=== PATIENT | female | born 1965 | race Hispanic/Latino ===

== ENCOUNTER 2017-06-24 06:31 | Inpatient (IN) | payer OTHER ==
[2017-06-24 06:56] VITALS: BMI 45.3
[2017-06-24] MEDS ORDERED: Propofol 10 mg/ml Inj (20 ML) ONE ×2 (08:04→13:03)
[2017-06-24] MEDS ORDERED: Succinylcholine 200 mg/10 ml Inj IV ONE ×2 (08:05→13:04)
[2017-06-24] MEDS ORDERED: Rocuronium 10 mg/ml (5 ml) ONE ×3 (08:05→14:56)
[2017-06-24] MEDS ORDERED: Lidocaine 4% (Laryng-O-Jet) Kit MM ONE ×2 (08:05→13:04)
[2017-06-24] MEDS ORDERED: Midazolam 2 MG/2 ML VIAL ONE ×2 (08:16→13:03)
[2017-06-24] MEDS ORDERED: ePHEDrine 50 mg/ml Inj ONE ×2 (08:17→13:11)
[2017-06-24] MEDS ORDERED: Lactated Ringer's 1,000 ML IV ONE ×5 (10:04→21:45)
[2017-06-24] MEDS ORDERED: Morphine 1 mg/ml preservative-free Inj(Duramorph) ONE ×2 (12:41→13:11)
[2017-06-24] MEDS ORDERED: EPINEPHrine 1 mg/ml (1:1000) Inj ONE (12:42)
[2017-06-24] MEDS ORDERED: Absorbable Gelatin Sponge Size 100 ONE (12:42)
[2017-06-24] MEDS ORDERED: Bacitracin Ointment 30 GM TUBE ONE (12:42)
[2017-06-24] MEDS ORDERED: Bupivacaine 0.5% Inj(30mL) ONE (12:42)
[2017-06-24] MEDS ORDERED: Thrombin Topical 5,000 Int Units Spray Kit ONE (12:42)
[2017-06-24] MEDS ORDERED: MethylPREDNISolone Depo 40 mg/ml Inj ONE (12:43)
[2017-06-24] MEDS ORDERED: Lidocaine 1% 5ml Abboject IV ONE (13:04)
[2017-06-24] MEDS ORDERED: Sevoflurane - Inhalation Anesthetic Liq (250 ml) ONE (13:04)
[2017-06-24] MEDS ORDERED: Sterile Water 10 ML IV ONE (13:11)
[2017-06-24] MEDS ORDERED: Neostigmine 1:1000 (1 mg/ml) Inj ONE (15:51)
[2017-06-24] MEDS ORDERED: DiphenhydrAMINE 50 mg/ml Inj IVP PRN (17:52)
[2017-06-24] MEDS ORDERED: Oxycodone/Acetaminophen 5/325 mg Tab PO PRN ×3 (17:52→19:18)
[2017-06-24] MEDS ORDERED: ceFAZolin IV 1 gm in Dextrose 1 GM/50 ML BAG IVPB ONE ×2 (19:00→19:45)
--- NOTE | 2017-06-24 19:14 | PCM.SURG1 ---
Surgeon's Initial Post Op Note - Surgeon's Notes Surgeon: María Esteban MD Core Measures Abstractor: Ran Arthur PA-C; Dayanara Wong Type of Anesthesia: General Endo, Spinal Pre-Operative Diagnosis: Left hip Osteoarthritis Operative Findings: see op report Post-Operative Diagnosis: same as pre-op dx Operation Performed: L THR Specimen/Specimens Removed: left hip femoral head and soft tissue Estimated Blood Loss: EBL {In ML}: 200 Date of Surgery/Procedure: 06/24/17 Time of Surgery/Procedure: 15:30
[2017-06-24] MEDS: Lactated Ringer's 500 ML IV SCH (21:00)
[2017-06-24 21:18] LABS: HEMOGLOBIN 9.9 g/dL (12.0-16.0); MEAN CELL VOLUME 88.6 fl (81.0-99.0); MEAN CORPUSCULAR HEMOGLOBIN 29.5 pg (27.0-31.0); MEAN CORPUSCULAR HGB CONC 33.3 g/dL (33.0-37.0); RBC 3.34 Mil/uL (3.80-5.20); WHITE BLOOD COUNT 9.4 K/uL (4.8-10.8)
--- NOTE | 2017-06-24 22:49 | OP ---
PROCEDURE DATE: 06/24/2017 ATTENDING SURGEON: María Esteban MD DAIRY CHEMIST: Ran Arthur PA-C PREOPERATIVE DIAGNOSIS: Left hip osteoarthritis. POSTOPERATIVE DIAGNOSIS: Left hip osteoarthritis. PROCEDURE: Total hip replacement. IMPLANTS SIZE: Sidney 50 mm Tritanium cup, Accolade II size 4 stem with high-offset, and 36 mm ceramic head with -5 neck length. ANESTHESIA TYPE: Spinal and general. ESTIMATED BLOOD LOSS: 300 mL. COMPLICATIONS: None. HISTORY: Patient with long standing history of left hip pain refractory of conservative management. X-ray had shown significant loss of joint space. After the failure of extensive conservative management, I had offered the patient the treatment option of total hip replacement. I reviewed the risk and benefits of the surgery with the patient in detail. The risks include, but not limited to bleeding, infection, nerve vessel damage, continuous pain, blood loss, instability, dislocation, iatrogenic fracture, blood clots, need for further surgery, and even . The patient fully understood the risks and benefits and opted to proceed. Patient underwent necessary preoperative medical workup and once medically cleared, was scheduled for the procedure. DESCRIPTION OF PROCEDURE: Under spinal and general anesthesia, on the day of the surgery, the patient was admitted to preoperative holding area. A laterality sheet was completed, confirming correct operative site. An informed consent was signed from the patient and the correct operative hip was marked. Patient was brought into the operating room table. She underwent general anesthesia. Afterwards, the patient was placed on the operating room table in lateral decubitus position. All the bony prominences were well padded and an axillary roll was also placed. The hip was draped and prepped in the standard sterile manner. Timeout was completed, confirming correct operative site. We proceeded with Navigation assisted total hip replacement. Two pins were placed in the iliac crest to attach the antenna. Additional checkpoint was placed on the greater trochanter and on top of the acetabular roof. We utilized a standard postero-lateral approach. Using a #10 blade, a skin incision was made. The soft tissue dissection was taken down until the IT band fascia was identified incised along it's fibers. The short external rotators were exposed and excised with the capsule. It was tagged wit heavy sutures preserved for a later repair. Afterwards, the hip was dislocated and proposed neck cut was made. The Acetabulum was exposed using standard retractors. The remnant of torn labrum was excised along with pulvinar. The acetabulum was reamed using motorized reamers to the size that provide adequate depth and coverage. Next, 50 mm cup was securely fixed in to the acetabular socket in appropriate version and inclination. A polyethylene liner was secured in to the acetubular cup. The femoral canal was exposed using standard retractors. Using the box chisel, lateral femoral neck was removed. Femoral canal was broached up to size 4 broach, which provide a secure fit and adequate fill of femoral canal. A high-offset trial neck was secured onto the broach. Different trial heads with variable neck lengths were secured onto the trial neck. The hip was reduced and taken through extensive range of motion to test stability, soft tissue tensioning and leg length. It was noted the 36 mm head with -5 neck length provide adequate stability, soft tissue tensioning and length. Next, size 4 stem with high-offset was securely fixed into the femoral canal. Then, 36 mm ceramic head with -5 neck length was secured onto the neck of femoral stem. Hip was reduced and taken through final range of motion to assess for stability, soft tissue tensioning and leg length which was found to be satisfactory. Finally, the wound was copiously irrigated using pulse lavage solution. All loose bodies were removed. The short external rotators were repaired to greater trochanter using drill holes and heavy sutures. IT band fascia was tightly closed using heavy sutures and rest the wound was closed standard manner. Sterile dressing was applied. Patient was transferred to stretcher. Post-op instructions included posterior hip precautions. During this procedure, I was assisted by 22 malini Arthur PA-C, who assisted in positioning the patient on the operating room table as well as transferring the patient from the operating room table to the recovery room stretcher. In addition, Ran Arthur PA-C assisted me during the actual operative procedure by positioning, protecting critical neurovascular structures, exposure of the joint, and proper positioning of the implants. The presence of Ran Arthur PA-C as my operative assistant inventory manager was medically necessary to ensure the utmost safety of the patient in the pre, intra-, and post-operative periods. Due to the patient's morbid obesity, this procedure was more difficult than a standard knee arthroscopy. This required extra time during prepping and draping, as well as an extended operative time. The length of the case was prolonged due to these factors by 100%. Due to the patient's previous procedure(s) performed in this area, this procedure was more difficult than a standard knee arthroscopy. This required extra time during prepping and draping, as well as an extended operative time. Because of the added complexity of the revision nature of this procedure, the length of the case was prolonged by 100%. María Esteban MD S[facility]
[2017-06-24] MEDS: oxyCODONE 10 mg ER Tab (oxyCONTIN) PO SCH (23:50)
[2017-06-25] MEDS: Lactated Ringer's 1,000 ML IV SCH ×4 (06:13→21:18)
--- NOTE | 2017-06-25 08:10 | CP.PCM.PN ---
Subjective - Date & Time of Evaluation Date of Evaluation: 06/25/17 Time of Evaluation: 08:08 - Subjective Subjective: Patient seen and examined with Dr. Esteban Patient states pain is controlled. Denies CP/SOB, low grade temp 100.6 overnight. Objective - Vital Signs/Intake and Output Vital Signs (last 24 hours): Temp Pulse Resp BP Pulse Ox 100.1 F H 115 H 18 99/64 L 98 06/25/17 07:55 06/25/17 07:55 06/25/17 07:55 06/25/17 07:55 06/25/17 07:55 Intake and Output: 06/25/17 06/25/17 06:59 18:59 Intake Total 1000 Output Total 600 Balance 400 - Medications Medications: Current Medications Acetaminophen (Tylenol 325mg Tab) 325 mg PO Q4 PRN PRN Reason: Pain, Mild (1-3) Last Admin: 06/25/17 06:36 Dose: 325 mg Celecoxib (Celebrex) 100 mg PO BID [facility] Stop: 08/06/17 09:01 Diphenhydramine HCl (Benadryl) 50 mg IVP Q6 PRN PRN Reason: Itching / Pruritus Enoxaparin Sodium (Lovenox) 40 mg SC DAILY [facility] PRN Reason: Protocol Lactated Ringer's (Lactated Ringer's 500ml) 500 mls @ 999 mls/hr IV .Q31M [facility] Last Admin: 06/24/17 21:00 Dose: 500 mls Lactated Ringer's (Lactated Ringer's) 1,000 mls @ 125 mls/hr IV .Q8H [facility] Last Admin: 06/25/17 06:13 Dose: 125 mls/hr Cefazolin Sodium 2 gm/ Sodium (Chloride) 100 mls @ 100 mls/hr IVPB Q8H [facility] PRN Reason: Protocol Stop: 06/25/17 17:14 Ketorolac Tromethamine (Toradol) 15 mg IM Q8 [facility] Stop: 06/27/17 09:01 Ondansetron HCl (Zofran Inj) 4 mg IVP Q6 PRN PRN Reason: Nausea/Vomiting Oxycodone HCl (Oxycontin Extended Release Tab) 10 mg PO Q12 [facility] Stop: 06/27/17 21:01 Last Admin: 03/27/18 23:50 Dose: Not Given Oxycodone/Acetaminophen (Percocet 5/325 Mg Tab) 1 tab PO Q4 PRN PRN Reason: For PCEA Breakthrough Pain Stop: 06/27/17 17:53 - Labs Labs: 06/24/17 21:15 - Constitutional Appears: Well - Extremities Exam Additional comments: +ROM ankle/toes, sensation intact +Dp/PT pulses, calves soft NT neg homans, thigh soft, dressing intact Assessment and Plan (1) Primary osteoarthritis of left hip Assessment & Plan: POD#1 s/p L THR pt has not voided since 9pm, will cont IVF, Encourage OOB/PT and will straight cath if no void (bladder scan 400) PT/OT d/c planning IS VTE proph lovenox and SCDs d/w Dr. Esteban, agrees with above Status: Acute (2) Morbid obesity Assessment & Plan: BMI 45.3 Status: Chronic (3) Hypertension Assessment & Plan: cont home meds Status: Chronic Past Patient History - Past Medical History & Family History Past Medical History?: Yes - Past Social History Smoking Status: Never Smoked - CARDIAC Hx Cardiac Disorders: Yes Hx Hypertension: Yes - PULMONARY Hx Respiratory Disorders: No - NEUROLOGICAL Hx Neurological Disorder: No - HEENT Hx HEENT Problems: No - RENAL Hx Chronic Kidney Disease: No - ENDOCRINE/METABOLIC Hx Endocrine Disorders: No - HEMATOLOGICAL/ONCOLOGICAL Hx Blood Disorders: No - INTEGUMENTARY Hx Dermatological Problems: No - MUSCULOSKELETAL/RHEUMATOLOGICAL Hx Musculoskeletal Disorders: Yes Hx Arthritis: Yes - GASTROINTESTINAL Hx Gastrointestinal Disorders: No - GENITOURINARY/GYNECOLOGICAL Hx Genitourinary Disorders: No - PSYCHIATRIC Hx Psychophysiologic Disorder: Yes Hx Depression: Yes - SURGICAL HISTORY Hx Surgeries: Yes Other/Comment: lap banding x2 - ANESTHESIA Hx Anesthesia: Yes Hx Anesthesia Reactions: No Hx Malignant Hyperthermia: No Has any member of the family had a problem w/ anesthesia?: No
[2017-06-25 09:02] LABS: BASO % 0.4 % (0.0-2.0); EOS % 0.6 % (0.0-4.0); HEMOGLOBIN 9.6 g/dL (12.0-16.0); LYMPH % 18.4 % (20.0-40.0); MEAN CELL VOLUME 88.1 fl (81.0-99.0); MEAN CORPUSCULAR HEMOGLOBIN 29.6 pg (27.0-31.0); MEAN CORPUSCULAR HGB CONC 33.6 g/dL (33.0-37.0); MONO # 0.5 K/uL (0.0-0.8); MONO % 8.8 % (0.0-10.0); NEUT % 71.8 % (50.0-75.0); NRBC % 0.1 % (0.0-0.0); RBC 3.25 Mil/uL (3.80-5.20); RED CELL DISTRIBUTION WIDTH 13.4 % (11.5-14.5); WHITE BLOOD COUNT 5.6 K/uL (4.8-10.8)
[2017-06-25] MEDS: oxyCODONE 10 mg ER Tab (oxyCONTIN) PO SCH ×2 (09:15→20:42)
[2017-06-25] MEDS: ceFAZolin 2 GM in Sodium Chloride 0.9% 100 ML IVPB SCH ×2 (09:58→15:58)
[2017-06-25] MEDS: Lactated Ringer's 500 ML IV SCH (10:18)
--- NOTE | 2017-06-25 10:31 | RAD ---
PROCEDURE: Left hip, limited HISTORY: post thr COMPARISON: Not available TECHNIQUE: AP portable left hip FINDINGS: Status post left hip arthroplasty. No fracture identified. No dislocation. IMPRESSION: Left hip arthroplasty.
[2017-06-25 10:36] LABS: BLOOD UREA NITROGEN 17 mg/dl (7-17); CALCIUM 8.2 mg/dL (8.4-10.2); GFR AFRICAN-AMERICAN > 60; GFR NON-AFRICAN AMERICAN 58
--- NOTE | 2017-06-25 10:57 | RAD ---
PROCEDURE: Left Hip X-ray Radiographs. HISTORY: post left thr COMPARISON: None. FINDINGS: BONES: Portable radiography of the pelvis and left hip demonstrates the patient to be status post left hip arthroplasty. There is no fracture identified. The femoral head is normally situated. There is no evidence of prosthesis loosening. JOINTS: There is osteoarthritis of right hip with severe joint space narrowing but no articular erosion. Marginal hypertrophy is noted. SOFT TISSUES: Normal. OTHER FINDINGS: None. IMPRESSION: Left hip arthroplasty. Right hip are still arthritis.
[2017-06-25] MEDS ORDERED: ROPINIROLE HCL 2 MG PO PRN (12:26)
--- NOTE | 2017-06-25 12:27 | CP.PCM.HP ---
Addendum entered and electronically signed by Herbert Sandra MD 06/25/17 12: 46: Will hold HCTZ for now due to low BP C/W Lovenox for DVT prophylaxis Original Note: <Herbert Sandra - Last Filed: 06/25/17 12:39> History of Present Illness - History of Present Illness History of Present Illness: 51 y/o F with PMhx of O/A, HTN and RLS was admitted to hosp s/p L/THR. Patient is seen this morning at bedside in not acute distress. Pain is controlled with pain meds. Tolerating PO, denies acute events overnight although patient developed low grade fever yesterday. Denies changes in urination or stools. Denies CP, palpitations, SOB, abd pain, headache, cough, numbness or tingling. Present on Admission - Present on Admission Any Indicators Present on Admission: No Review of Systems - Review of Systems All systems: reviewed and no additional remarkable complaints except (those described on HPI) Past Patient History - Past Medical History & Family History Past Medical History?: Yes - Past Social History Smoking Status: Never Smoked - CARDIAC Hx Cardiac Disorders: Yes Hx Hypertension: Yes - PULMONARY Hx Respiratory Disorders: No - NEUROLOGICAL Hx Neurological Disorder: Yes Other/Comment: RLS - HEENT Hx HEENT Problems: No - RENAL Hx Chronic Kidney Disease: No - ENDOCRINE/METABOLIC Hx Endocrine Disorders: No - HEMATOLOGICAL/ONCOLOGICAL Hx Blood Disorders: No - INTEGUMENTARY Hx Dermatological Problems: No - MUSCULOSKELETAL/RHEUMATOLOGICAL Hx Musculoskeletal Disorders: Yes Hx Arthritis: Yes - GASTROINTESTINAL Hx Gastrointestinal Disorders: No - GENITOURINARY/GYNECOLOGICAL Hx Genitourinary Disorders: No - PSYCHIATRIC Hx Psychophysiologic Disorder: Yes Hx Depression: Yes - SURGICAL HISTORY Hx Surgeries: Yes Other/Comment: lap banding x2 - ANESTHESIA Hx Anesthesia: Yes Hx Anesthesia Reactions: No Hx Malignant Hyperthermia: No Has any member of the family had a problem w/ anesthesia?: No Meds Allergies/Adverse Reactions: Allergies Allergy/AdvReac Type Severity Reaction Status Date / Time No Known Allergies Allergy Verified 06/20/14 15:40 Physical Exam - Constitutional Appears: Non-toxic, No Acute Distress - Head Exam Head Exam: ATRAUMATIC - Eye Exam Eye Exam: EOMI, PERRL - ENT Exam ENT Exam: Mucous Membranes Moist - Respiratory Exam Respiratory Exam: Clear to Auscultation Bilateral, NORMAL BREATHING PATTERN. absent: Decreased Breath Sounds, Rales, Rhonchi, Wheezes, Respiratory Distress - Cardiovascular Exam Cardiovascular Exam: REGULAR RHYTHM, +S1, +S2. absent: Gallop - GI/Abdominal Exam GI & Abdominal Exam: Normal Bowel Sounds, Soft. absent: Distended, Firm, Guarding, Rebound, Rigid, Tenderness - Extremities Exam Extremities exam: Positive for: normal capillary refill, pedal pulses present. Negative for: calf tenderness Additional comments: No signs of acute neurvasc compromise. Move toes, intact sensation - Neurological Exam Neurological exam: Alert, Oriented x3 - Psychiatric Exam Psychiatric exam: Normal Affect, Normal Mood - Skin Skin Exam: Normal Color, Warm Results - Vital Signs Recent Vital Signs: Last Vital Signs Temp 99.3 F 06/25/17 12:00 Pulse 114 H 06/25/17 12:00 Resp 18 06/25/17 12:00 BP 94/60 L 06/25/17 12:00 Pulse Ox 96 06/25/17 12:00 - Labs Result Diagrams: 06/25/17 08:48 06/25/17 10:09 Labs: Laboratory Results - last 24 hr 06/24/17 06/24/17 06/25/17 20:24 21:15 08:48 WBC 9.4 5.6 RBC 3.34 L 3.25 L Hgb 9.9 L 9.6 L Hct 29.6 L 28.6 L MCV 88.6 88.1 MCH 29.5 29.6 MCHC 33.3 33.6 RDW 13.0 13.4 Plt Count 204 179 MPV 9.0 Neut % (Auto) 71.8 Lymph % (Auto) 18.4 L [place] % (Auto) 8.8 Eos % (Auto) 0.6 Baso % (Auto) 0.4 Neut # (Auto) 4.0 Lymph # (Auto) 1.0 [place] # (Auto) 0.5 Eos # (Auto) 0.0 Baso # (Auto) 0.0 Sodium Potassium Chloride Carbon Dioxide Anion Gap BUN Creatinine Est GFR ( Amer) Est GFR (Non-Af Amer) POC Glucose (mg/dL) 82 Random Glucose Calcium 06/25/17 10:09 WBC RBC Hgb Hct MCV MCH MCHC RDW Plt Count MPV Neut % (Auto) Lymph % (Auto) [place] % (Auto) Eos % (Auto) Baso % (Auto) Neut # (Auto) Lymph # (Auto) [place] # (Auto) Eos # (Auto) Baso # (Auto) Sodium 140 Potassium 4.0 Chloride 104 Carbon Dioxide 26 Anion Gap 14 BUN 17 Creatinine 1.0 Est GFR ( Amer) > 60 Est GFR (Non-Af Amer) 58 POC Glucose (mg/dL) Random Glucose 115 H Calcium 8.2 L Assessment & Plan - Assessment and Plan (Free Text) Plan: S/p L/THR POD1 C/w supportive measures Ancef IV Monitor VS C/w home meds PT/OT HTN C/w home meds for now BP running borderline low Monitor RLS C/w home med <Santos Malagon L - Last Filed: 06/27/17 12:34> Results - Vital Signs Recent Vital Signs: Last Vital Signs Temp 97.9 F 06/27/17 08:00 Pulse 105 H 06/27/17 12:12 Resp 20 06/27/17 08:00 BP 122/80 06/27/17 12:12 Pulse Ox 96 06/27/17 10:40 - Labs Result Diagrams: 06/27/17 09:50 06/26/17 11:09 Labs: Laboratory Results - last 24 hr 06/26/17 06/26/17 06/26/17 11:09 11:09 11:09 WBC RBC Hgb Hct MCV MCH MCHC RDW Plt Count MPV Neut % (Auto) Lymph % (Auto) [place] % (Auto) Eos % (Auto) Baso % (Auto) Neut # (Auto) Lymph # (Auto) [place] # (Auto) Eos # (Auto) Baso # (Auto) Sodium 143 Potassium 3.8 Chloride 103 Carbon Dioxide 29 Anion Gap 15 BUN 9 Creatinine 0.6 L Est GFR ( Amer) > 60 Est GFR (Non-Af Amer) > 60 Random Glucose 121 H Hemoglobin A1c 5.8 Calcium 8.3 L Iron TIBC % Saturation Ferritin 67.8 Total Bilirubin 0.6 AST 41 H ALT 24 Alkaline Phosphatase 77 Total Protein 6.0 L Albumin 2.9 L D Globulin 3.1 Albumin/Globulin Ratio 0.9 L Vitamin B12 384 25-OH Vitamin D Total < 12.8 L 06/26/17 06/27/17 16:00 09:50 WBC 5.6 RBC 3.09 L Hgb 9.1 L Hct 27.7 L MCV 89.6 MCH 29.4 MCHC 32.8 L RDW 13.3 Plt Count 197 MPV 9.3 Neut % (Auto) 72.1 Lymph % (Auto) 18.3 L [place] % (Auto) 6.6 Eos % (Auto) 2.6 Baso % (Auto) 0.4 Neut # (Auto) 4.0 Lymph # (Auto) 1.0 [place] # (Auto) 0.4 Eos # (Auto) 0.1 Baso # (Auto) 0.0 Sodium Potassium Chloride Carbon Dioxide Anion Gap BUN Creatinine Est GFR ( Amer) Est GFR (Non-Af Amer) Random Glucose Hemoglobin A1c Calcium Iron 32 L TIBC 209 L % Saturation 15 L Ferritin Total Bilirubin AST ALT Alkaline Phosphatase Total Protein Albumin Globulin Albumin/Globulin Ratio Vitamin B12 25-OH Vitamin D Total Assessment & Plan - Assessment and Plan (Free Text) Plan: I was present during evaluation and discussed with Dr Sandra re plans of care and mgt. Santos Malagon M.D.
[2017-06-25] MEDS: Artificial Tears Opht Soln OU PRN ×2 (16:04→20:39)
--- NOTE | 2017-06-25 19:42 | CARD ---
APPROVED REPORT EKG Measurement Heart [id number] [id number] <Conclusion> Normal sinus rhythm Low voltage QRS Borderline ECG
[2017-06-25] MEDS: ROPINIROLE HCL 2 MG PO SCH ×2 (20:39→22:00)
[2017-06-25] MEDS: Enoxaparin 40 mg Syringe SC SCH (21:15)
[2017-06-25] MEDS ORDERED: Enoxaparin 40 mg Syringe SC SCH (22:00)
[2017-06-26] MEDS: ROPINIROLE HCL 2 MG PO SCH ×4 (04:13→20:59)
[2017-06-26 09:02] LABS: BASO % 0.3 % (0.0-2.0); EOS % 0.5 % (0.0-4.0); HEMOGLOBIN 8.9 g/dL (12.0-16.0); LYMPH # 0.9 K/uL (1.0-4.3); MEAN CELL VOLUME 88.6 fl (81.0-99.0); MEAN CORPUSCULAR HEMOGLOBIN 29.5 pg (27.0-31.0); MEAN CORPUSCULAR HGB CONC 33.3 g/dL (33.0-37.0); MEAN PLATELET VOLUME 9.7 fl (7.2-11.7); MONO # 0.4 K/uL (0.0-0.8); NEUT # 5.2 K/uL (1.8-7.0); NEUT % 79.2 % (50.0-75.0); RED CELL DISTRIBUTION WIDTH 13.3 % (11.5-14.5); WHITE BLOOD COUNT 6.5 K/uL (4.8-10.8)
[2017-06-26] MEDS: oxyCODONE 10 mg ER Tab (oxyCONTIN) PO SCH (09:38)
[2017-06-26 09:39] LABS: BLOOD UREA NITROGEN 10 mg/dl (7-17); GFR AFRICAN-AMERICAN > 60; GFR NON-AFRICAN AMERICAN > 60
[2017-06-26] MEDS ORDERED: ROPINIROLE HCL 1 MG PO SCH (09:50)
--- NOTE | 2017-06-26 11:03 | CP.PCM.PN ---
Subjective - Date & Time of Evaluation Date of Evaluation: 06/26/17 Time of Evaluation: 11:00 - Subjective Subjective: Patient says pain is well controlled. Denies CP/SOB/dizziness. Denies numbness/ tingling. Tolerating PT well Objective - Vital Signs/Intake and Output Vital Signs (last 24 hours): Temp Pulse Resp BP Pulse Ox 99.2 F 104 H 18 111/64 94 L 06/26/17 08:00 06/26/17 09:57 06/26/17 08:00 06/26/17 09:57 06/26/17 08:00 - Medications Medications: Current Medications Acetaminophen (Tylenol 325mg Tab) 325 mg PO Q4 PRN PRN Reason: Pain, Mild (1-3) Last Admin: 06/25/17 06:36 Dose: 325 mg Alprazolam (Xanax) 0.5 mg PO Q24H PRN PRN Reason: Anxiety Last Admin: 06/25/17 16:11 Dose: 0.5 mg Alprazolam (Xanax) 0.5 mg PO HS PRN PRN Reason: Sleep Last Admin: 06/25/17 23:15 Dose: 0.5 mg Artificial Tears (Artificial Tears) 2 drop OU Q4 PRN PRN Reason: Dry eyes Last Admin: 06/25/17 20:39 Dose: 2 drop Celecoxib (Celebrex) 100 mg PO BID [facility] Stop: 08/06/17 09:01 Last Admin: 06/26/17 09:29 Dose: 100 mg Diphenhydramine HCl (Benadryl) 50 mg IVP Q6 PRN PRN Reason: Itching / Pruritus Enoxaparin Sodium (Lovenox) 40 mg SC DAILY [facility] PRN Reason: Protocol Last Admin: 06/25/17 21:15 Dose: 40 mg Ferrous Sulfate (Feosol) 325 mg PO BID [facility] Last Admin: 06/26/17 09:31 Dose: 325 mg Home [facility] (Paroxetine Hcl [Paxil]) 40 mg PO DAILY [facility] Last Admin: 06/26/17 09:33 Dose: 40 mg [facility] (Ropinirole Hcl [Requip]) 1 mg PO Q12 [facility] Hydrochlorothiazide (Microzide) 12.5 mg PO DAILY [facility] Last Admin: 06/25/17 10:01 Dose: Not Given Lactated Ringer's (Lactated Ringer's 500ml) 500 mls @ 999 mls/hr IV .Q31M [facility] Last Admin: 06/25/17 10:18 Dose: 999 mls/hr Lactated Ringer's (Lactated Ringer's) 1,000 mls @ 125 mls/hr IV .Q8H [facility] Last Admin: 06/25/17 21:18 Dose: 125 mls/hr Ketorolac Tromethamine (Toradol) 15 mg IM Q8 [facility] Stop: 06/27/17 09:01 Last Admin: 06/26/17 01:25 Dose: Not Given Losartan Potassium (Cozaar) 50 mg PO DAILY [facility] Last Admin: 06/26/17 09:29 Dose: 50 mg Ondansetron HCl (Zofran Inj) 4 mg IVP Q6 PRN PRN Reason: Nausea/Vomiting Oxycodone/Acetaminophen (Percocet 5/325 Mg Tab) 1 tab PO Q4 PRN PRN Reason: For PCEA Breakthrough Pain Stop: 06/27/17 17:53 - Labs Labs: 06/26/17 08:51 06/26/17 08:51 - Extremities Exam Additional comments: Left hip: wound vac intact, no drainage. +ROM ankle/toes, sensation intact, +DP/ PT pulses calves soft NT neg homans Assessment and Plan (1) Primary osteoarthritis of left hip Assessment & Plan: POD#2 s/p left THR cont wound vac PT/OT VTE proph OOB orthopedically stable pending TCU placement d/w Dr. Esteban, agrees with above Status: Acute (2) Morbid obesity Status: Chronic (3) Hypertension Status: Chronic
[2017-06-26] MEDS: Artificial Tears Opht Soln OU PRN ×2 (11:42→16:12)
[2017-06-26 12:36] LABS: ALB/GLOB RATIO 0.9 (1.0-2.1); ALBUMIN 2.9 g/dL (3.5-5.0); ALT/SGPT 24 U/L (9-52); AST/SGOT 41 U/L (14-36); BLOOD UREA NITROGEN 9 mg/dl (7-17); CALCIUM 8.3 mg/dL (8.4-10.2); GFR AFRICAN-AMERICAN > 60; GFR NON-AFRICAN AMERICAN > 60
[2017-06-26 13:04] LABS: FERRITIN 67.8 ng/Ml (11.1-264.0)
[2017-06-26 16:59] LABS: IRON 32 ug/dL (37-170)
[2017-06-26 17:14] LABS: % IRON SATURATION 15 % (20-55); TOTAL IRON BINDING CAPACITY 209 ug/dL (250-450)
[2017-06-26] MEDS: Enoxaparin 40 mg Syringe SC SCH (19:40)
[2017-06-26] MEDS ORDERED: Enoxaparin 40 mg Syringe SC SCH (22:00)
--- NOTE | 2017-06-27 07:59 | CP.PCM.PN ---
Subjective - Date & Time of Evaluation Date of Evaluation: 06/27/17 Time of Evaluation: 06:45 - Subjective Subjective: Patient states pain is well controlled. Denies CP/SOB/dizziness/numbness/ tingling Objective - Vital Signs/Intake and Output Vital Signs (last 24 hours): Temp Pulse Resp BP Pulse Ox 98.6 F 108 H 18 131/82 95 06/27/17 05:32 06/27/17 05:32 06/27/17 05:32 06/27/17 05:32 06/27/17 05:32 Intake and Output: 06/27/17 06/27/17 06:59 18:59 Intake Total 1830 Output Total 1 Balance 1829 - Medications Medications: Current Medications Acetaminophen (Tylenol 325mg Tab) 325 mg PO Q4 PRN PRN Reason: Pain, Mild (1-3) Last Admin: 06/25/17 06:36 Dose: 325 mg Alprazolam (Xanax) 0.5 mg PO Q24H PRN PRN Reason: Anxiety Last Admin: 06/25/17 16:11 Dose: 0.5 mg Alprazolam (Xanax) 0.5 mg PO HS PRN PRN Reason: Sleep Last Admin: 06/26/17 20:58 Dose: 0.5 mg Artificial Tears (Artificial Tears) 2 drop OU Q4 PRN PRN Reason: Dry eyes Last Admin: 06/26/17 16:12 Dose: 2 drop Celecoxib (Celebrex) 100 mg PO BID [facility] Stop: 08/06/17 09:01 Last Admin: 06/26/17 16:13 Dose: 100 mg Diphenhydramine HCl (Benadryl) 50 mg IVP Q6 PRN PRN Reason: Itching / Pruritus Enoxaparin Sodium (Lovenox) 40 mg SC DAILY [facility] PRN Reason: Protocol Last Admin: 06/26/17 19:40 Dose: 40 mg Ferrous Sulfate (Feosol) 325 mg PO BID [facility] Last Admin: 06/26/17 16:13 Dose: 325 mg Home Med (Paroxetine Hcl [Paxil]) 40 mg PO DAILY [facility] Last Admin: 06/26/17 09:33 Dose: 40 mg Home Med (Ropinirole Hcl [Requip]) 2 mg PO Q12 [facility] Last Admin: 06/26/17 20:59 Dose: 2 mg Hydrochlorothiazide (Microzide) 12.5 mg PO DAILY [facility] Last Admin: 06/25/17 10:01 Dose: Not Given Ketorolac Tromethamine (Toradol) 15 mg IM Q8 [facility] Stop: 06/27/17 09:01 Last Admin: 06/27/17 00:18 Dose: Not Given Losartan Potassium (Cozaar) 50 mg PO DAILY [facility] Last Admin: 06/26/17 09:29 Dose: 50 mg Ondansetron HCl (Zofran Inj) 4 mg IVP Q6 PRN PRN Reason: Nausea/Vomiting Oxycodone/Acetaminophen (Percocet 5/325 Mg Tab) 1 tab PO Q4 PRN PRN Reason: For PCEA Breakthrough Pain Stop: 06/27/17 17:53 - Labs Labs: 06/26/17 08:51 06/26/17 11:09 - Extremities Exam Additional comments: +ROM ankle, toes, sensation intact, +DP/PT pulses calves soft NT neg homnas Assessment and Plan (1) Primary osteoarthritis of left hip Assessment & Plan: POD#3 s/p left THR ortho stable for transfer to TCU keep wound vac intact at all times PT/OT VTE proph d/w Dr. Esteban, agrees with above Status: Acute (2) Morbid obesity Status: Chronic (3) Hypertension Status: Chronic (4) Vitamin D deficiency Assessment & Plan: D3 Status: Chronic
[2017-06-27] MEDS: Enoxaparin 40 mg Syringe SC SCH (09:22)
[2017-06-27] MEDS: ROPINIROLE HCL 2 MG PO SCH ×2 (09:25→21:09)
[2017-06-27 10:47] LABS: BASO % 0.4 % (0.0-2.0); EOS # 0.1 K/uL (0.0-0.7); EOS % 2.6 % (0.0-4.0); HEMOGLOBIN 9.1 g/dL (12.0-16.0); LYMPH % 18.3 % (20.0-40.0); MEAN CELL VOLUME 89.6 fl (81.0-99.0); MEAN CORPUSCULAR HEMOGLOBIN 29.4 pg (27.0-31.0); MEAN CORPUSCULAR HGB CONC 32.8 g/dL (33.0-37.0); MEAN PLATELET VOLUME 9.3 fl (7.2-11.7); MONO # 0.4 K/uL (0.0-0.8); MONO % 6.6 % (0.0-10.0); NEUT % 72.1 % (50.0-75.0); RBC 3.09 Mil/uL (3.80-5.20); RED CELL DISTRIBUTION WIDTH 13.3 % (11.5-14.5); WHITE BLOOD COUNT 5.6 K/uL (4.8-10.8)
[2017-06-27] MEDS: Metoprolol Succinate 25 mg XL Tab PO SCH ×3 (12:07→17:04)
[2017-06-27] MEDS: Cholecalciferol 1,000 INTLU TAB PO SCH (12:08)
[2017-06-27] MEDS: Artificial Tears Opht Soln OU PRN (12:13)
--- NOTE | 2017-06-27 12:19 | CP.PCM.CON ---
History of Present Illness - History of Present Illness History of Present Illness: THE PATIENT IS A 51 YEAR OLD FEMALE WHO I HAVE BEEN FOLLOWING IN MY OFFICE RECENTLY FOR HYPERTENSION. SHE ALSO HAS BILATERAL HIP OA, IS SEVERELY OVERWEIGHT AND HAS ANXIETY. SHE WAS ADMITTED ON 06/24/17 AND UNDERWENT LEFT THR. SHE DID WELL POST-OP AND WAS ON HER LOSARTAN. SHE WAS ANEMIC WITH AN H/H OF 12/25 AND HAD SINUS TACHYCARDIA UP TO THE 120'S SO CARDIOLOGY WAS ASKED TO SEE HER. THE LOSARTAN WAS STOPPED AND SHE WAS PLACED ON A BETA SUNDEEP TODAY. SHE DENIES CHEST PAIN, PALPITATIONS OR SOB. Past Patient History - Past Medical History & Family History Past Medical History?: Yes - Past Social History Smoking Status: Never Smoked - CARDIAC Hx Cardiac Disorders: Yes Hx Hypertension: Yes - PULMONARY Hx Respiratory Disorders: No - NEUROLOGICAL Hx Neurological Disorder: Yes Other/Comment: RLS - HEENT Hx HEENT Problems: No - RENAL Hx Chronic Kidney Disease: No - ENDOCRINE/METABOLIC Hx Endocrine Disorders: No - HEMATOLOGICAL/ONCOLOGICAL Hx Blood Disorders: No - INTEGUMENTARY Hx Dermatological Problems: No - MUSCULOSKELETAL/RHEUMATOLOGICAL Hx Arthritis: Yes - GASTROINTESTINAL Hx Gastrointestinal Disorders: No - GENITOURINARY/GYNECOLOGICAL Hx Genitourinary Disorders: No - PSYCHIATRIC Hx Psychophysiologic Disorder: Yes Hx Depression: Yes - SURGICAL HISTORY Hx Surgeries: Yes Other/Comment: lap banding x2 - ANESTHESIA Hx Anesthesia: Yes Hx Anesthesia Reactions: No Hx Malignant Hyperthermia: No Has any member of the family had a problem w/ anesthesia?: No Meds Allergies/Adverse Reactions: Allergies Allergy/AdvReac Type Severity Reaction Status Date / Time No Known Allergies Allergy Verified 06/20/14 15:40 - Medications Medications: Current Medications Acetaminophen (Tylenol 325mg Tab) 325 mg PO Q4 PRN PRN Reason: Pain, Mild (1-3) Last Admin: 06/25/17 06:36 Dose: 325 mg Alprazolam (Xanax) 0.5 mg PO Q24H PRN PRN Reason: Anxiety Last Admin: 06/25/17 16:11 Dose: 0.5 mg Alprazolam (Xanax) 0.5 mg PO HS PRN PRN Reason: Sleep Last Admin: 06/26/17 20:58 Dose: 0.5 mg Artificial Tears (Artificial Tears) 2 drop OU Q4 PRN PRN Reason: Dry eyes Last Admin: 06/26/17 16:12 Dose: 2 drop Celecoxib (Celebrex) 100 mg PO BID [facility] Stop: 08/06/17 09:01 Last Admin: 06/27/17 09:20 Dose: 100 mg Cholecalciferol (Vitamin D) 2,000 intlu PO DAILY [facility] Last Admin: 06/27/17 12:08 Dose: 2,000 intlu Diphenhydramine HCl (Benadryl) 50 mg IVP Q6 PRN PRN Reason: Itching / Pruritus Enoxaparin Sodium (Lovenox) 40 mg SC DAILY [facility] PRN Reason: Protocol Last Admin: 06/27/17 09:22 Dose: 40 mg Ferrous Sulfate (Feosol) 325 mg PO BID [facility] Last Admin: 06/27/17 09:21 Dose: 325 mg Home Med (Paroxetine Hcl [Paxil]) 40 mg PO DAILY [facility] Last Admin: 06/27/17 09:27 Dose: 40 mg Home Med (Ropinirole Hcl [Requip]) 2 mg PO Q12 [facility] Last Admin: 06/27/17 09:25 Dose: 2 mg Metoprolol Succinate (Toprol Xl) 25 mg PO DAILY [facility] Last Admin: 06/27/17 12:12 Dose: Not Given Ondansetron HCl (Zofran Inj) 4 mg IVP Q6 PRN PRN Reason: Nausea/Vomiting Oxycodone/Acetaminophen (Percocet 5/325 Mg Tab) 1 tab PO Q4 PRN PRN Reason: For PCEA Breakthrough Pain Stop: 06/27/17 17:53 Physical Exam - Respiratory Exam Respiratory Exam: Clear to Auscultation Bilateral - Cardiovascular Exam Cardiovascular Exam: Tachycardia, +S1, +S2 - Additional Findings Additional findings: [employer] ST OF 110 PRE-OP EKG WITH SINUS RHYTHM, RATE OF 97 H/H 12/25 K+ 3.8 IRON AND TIBC LEVELS ARE LOW Results - Vital Signs Recent Vital Signs: Last Vital Signs Temp 97.9 F 06/27/17 08:00 Pulse 105 H 06/27/17 12:12 Resp 20 06/27/17 08:00 BP 122/80 06/27/17 12:12 Pulse Ox 96 06/27/17 10:40 - Labs Result Diagrams: 06/27/17 09:50 06/26/17 11:09 Labs: Laboratory Results - last 24 hr 06/26/17 06/26/17 06/26/17 11:09 11:09 11:09 WBC RBC Hgb Hct MCV MCH MCHC RDW Plt Count MPV Neut % (Auto) Lymph % (Auto) [place] % (Auto) Eos % (Auto) Baso % (Auto) Neut # (Auto) Lymph # (Auto) [place] # (Auto) Eos # (Auto) Baso # (Auto) Sodium 143 Potassium 3.8 Chloride 103 Carbon Dioxide 29 Anion Gap 15 BUN 9 Creatinine 0.6 L Est GFR ( Amer) > 60 Est GFR (Non-Af Amer) > 60 Random Glucose 121 H Hemoglobin A1c 5.8 Calcium 8.3 L Iron TIBC % Saturation Ferritin 67.8 Total Bilirubin 0.6 AST 41 H ALT 24 Alkaline Phosphatase 77 Total Protein 6.0 L Albumin 2.9 L D Globulin 3.1 Albumin/Globulin Ratio 0.9 L Vitamin B12 384 25-OH Vitamin D Total < 12.8 L 06/26/17 06/27/17 16:00 09:50 WBC 5.6 RBC 3.09 L Hgb 9.1 L Hct 27.7 L MCV 89.6 MCH 29.4 MCHC 32.8 L RDW 13.3 Plt Count 197 MPV 9.3 Neut % (Auto) 72.1 Lymph % (Auto) 18.3 L [place] % (Auto) 6.6 Eos % (Auto) 2.6 Baso % (Auto) 0.4 Neut # (Auto) 4.0 Lymph # (Auto) 1.0 [place] # (Auto) 0.4 Eos # (Auto) 0.1 Baso # (Auto) 0.0 Sodium Potassium Chloride Carbon Dioxide Anion Gap BUN Creatinine Est GFR ( Amer) Est GFR (Non-Af Amer) Random Glucose Hemoglobin A1c Calcium Iron 32 L TIBC 209 L % Saturation 15 L Ferritin Total Bilirubin AST ALT Alkaline Phosphatase Total Protein Albumin Globulin Albumin/Globulin Ratio Vitamin B12 25-OH Vitamin D Total Assessment & Plan - Assessment and Plan (Free Text) Assessment: S/P TOTAL LHR FOR SEVERE OA HYPERTENSION HISTORY OVERWEIGHT ANXIETY Plan: LOSARTAN WAS DISCONTINUED AND METOPROLOL WAS STARTED CONTINUE LOVENOX, IRON AND ALPRAZOLAM I WOULD KEEP THE PATIENT ON 4N ON TELEMETRY TODAY AND TRANSFER HER TO TCU ONCE HER HEART RATE REMAINS IN THE NORMAL RANGE
--- NOTE | 2017-06-27 12:37 | CP.PCM.PN ---
Subjective - Date & Time of Evaluation Date of Evaluation: 06/26/17 Time of Evaluation: 11:20 - Subjective Subjective: Patient was noted to have mild tachycardia with HR ranging from 110 to 115. Has no headache dizziness chest pain or SOB. Hgb 8.9 Has no abd pain Has minimal pain on op site Tolerating pT well. Very anxious. Objective - Vital Signs/Intake and Output Vital Signs (last 24 hours): Temp Pulse Resp BP Pulse Ox 97.9 F 105 H 20 122/80 96 06/27/17 08:00 06/27/17 12:12 06/27/17 08:00 06/27/17 12:12 06/27/17 10:40 Intake and Output: 06/27/17 06/27/17 06:59 18:59 Intake Total 1830 Output Total 1 Balance 1829 - Medications Medications: Current Medications Acetaminophen (Tylenol 325mg Tab) 325 mg PO Q4 PRN PRN Reason: Pain, Mild (1-3) Last Admin: 06/25/17 06:36 Dose: 325 mg Alprazolam (Xanax) 0.5 mg PO Q24H PRN PRN Reason: Anxiety Last Admin: 06/25/17 16:11 Dose: 0.5 mg Alprazolam (Xanax) 0.5 mg PO HS PRN PRN Reason: Sleep Last Admin: 06/26/17 20:58 Dose: 0.5 mg Artificial Tears (Artificial Tears) 2 drop OU Q4 PRN PRN Reason: Dry eyes Last Admin: 06/27/17 12:13 Dose: 2 drop Celecoxib (Celebrex) 100 mg PO BID [facility] Stop: 08/06/17 09:01 Last Admin: 06/27/17 09:20 Dose: 100 mg Cholecalciferol (Vitamin D) 2,000 intlu PO DAILY [facility] Last Admin: 06/27/17 12:08 Dose: 2,000 intlu Diphenhydramine HCl (Benadryl) 50 mg IVP Q6 PRN PRN Reason: Itching / Pruritus Enoxaparin Sodium (Lovenox) 40 mg SC DAILY [facility] PRN Reason: Protocol Last Admin: 06/27/17 09:22 Dose: 40 mg Ferrous Sulfate (Feosol) 325 mg PO BID [facility] Last Admin: 06/27/17 09:21 Dose: 325 mg Home Med (Paroxetine Hcl [Paxil]) 40 mg PO DAILY [facility] Last Admin: 06/27/17 09:27 Dose: 40 mg Home Med (Ropinirole Hcl [Requip]) 2 mg PO Q12 [facility] Last Admin: 06/27/17 09:25 Dose: 2 mg Metoprolol Succinate (Toprol Xl) 25 mg PO DAILY [facility] Last Admin: 06/27/17 12:12 Dose: Not Given Ondansetron HCl (Zofran Inj) 4 mg IVP Q6 PRN PRN Reason: Nausea/Vomiting Oxycodone/Acetaminophen (Percocet 5/325 Mg Tab) 1 tab PO Q4 PRN PRN Reason: For PCEA Breakthrough Pain Stop: 06/27/17 17:53 - Labs Labs: 06/27/17 09:50 06/26/17 11:09 - Head Exam Head Exam: NORMAL INSPECTION - Eye Exam Eye Exam: Normal appearance Additional comments: pale conjunctivae - ENT Exam ENT Exam: Mucous Membranes Moist - Respiratory Exam Respiratory Exam: Clear to Ausculation Bilateral - Cardiovascular Exam Cardiovascular Exam: REGULAR RHYTHM - Neurological Exam Neurological Exam: Awake, Oriented x3 Assessment and Plan (1) Primary osteoarthritis of left hip Status: Acute (2) Gait abnormality Status: Acute (3) Anxiety Status: Acute (4) Hypertension Status: Chronic (5) Morbid obesity Status: Chronic (6) Sinus tachycardia Status: Acute - Assessment and Plan (Free Text) Plan: reassure patient cont PT monitor cbc pain meds if persistent will dc cozaar and switch to B lisa.
--- NOTE | 2017-06-27 12:41 | CP.PCM.PN ---
Subjective - Date & Time of Evaluation Date of Evaluation: 06/27/17 Time of Evaluation: 12:39 - Subjective Subjective: Patient did well with her PT. Noted persistent tachycardia. patient is very anxious. She was reassured that she will be able to go to rehab tomorrow. Objective - Vital Signs/Intake and Output Vital Signs (last 24 hours): Temp Pulse Resp BP Pulse Ox 97.9 F 105 H 20 122/80 96 06/27/17 08:00 06/27/17 12:12 06/27/17 08:00 06/27/17 12:12 06/27/17 10:40 Intake and Output: 06/27/17 06/27/17 06:59 18:59 Intake Total 1830 Output Total 1 Balance 1829 - Medications Medications: Current Medications Acetaminophen (Tylenol 325mg Tab) 325 mg PO Q4 PRN PRN Reason: Pain, Mild (1-3) Last Admin: 06/25/17 06:36 Dose: 325 mg Alprazolam (Xanax) 0.5 mg PO Q24H PRN PRN Reason: Anxiety Last Admin: 06/27/17 12:36 Dose: 0.5 mg Alprazolam (Xanax) 0.5 mg PO HS PRN PRN Reason: Sleep Last Admin: 06/26/17 20:58 Dose: 0.5 mg Artificial Tears (Artificial Tears) 2 drop OU Q4 PRN PRN Reason: Dry eyes Last Admin: 06/27/17 12:13 Dose: 2 drop Celecoxib (Celebrex) 100 mg PO BID [facility] Stop: 08/06/17 09:01 Last Admin: 06/27/17 09:20 Dose: 100 mg Cholecalciferol (Vitamin D) 2,000 intlu PO DAILY [facility] Last Admin: 06/27/17 12:08 Dose: 2,000 intlu Diphenhydramine HCl (Benadryl) 50 mg IVP Q6 PRN PRN Reason: Itching / Pruritus Enoxaparin Sodium (Lovenox) 40 mg SC DAILY [facility] PRN Reason: Protocol Last Admin: 06/27/17 09:22 Dose: 40 mg Ferrous Sulfate (Feosol) 325 mg PO BID [facility] Last Admin: 06/27/17 09:21 Dose: 325 mg Home Med (Paroxetine Hcl [Paxil]) 40 mg PO DAILY [facility] Last Admin: 06/27/17 09:27 Dose: 40 mg Home Med (Ropinirole Hcl [Requip]) 2 mg PO Q12 [facility] Last Admin: 06/27/17 09:25 Dose: 2 mg Metoprolol Succinate (Toprol Xl) 25 mg PO DAILY [facility] Last Admin: 06/27/17 12:12 Dose: Not Given Ondansetron HCl (Zofran Inj) 4 mg IVP Q6 PRN PRN Reason: Nausea/Vomiting Oxycodone/Acetaminophen (Percocet 5/325 Mg Tab) 1 tab PO Q4 PRN PRN Reason: For PCEA Breakthrough Pain Stop: 06/27/17 17:53 - Labs Labs: 06/27/17 09:50 06/26/17 11:09 - Head Exam Head Exam: NORMAL INSPECTION - Respiratory Exam Respiratory Exam: Clear to Ausculation Bilateral - Cardiovascular Exam Cardiovascular Exam: REGULAR RHYTHM - GI/Abdominal Exam GI & Abdominal Exam: Normal Bowel Sounds - Neurological Exam Neurological Exam: Awake, Oriented x3 Assessment and Plan (1) Primary osteoarthritis of left hip Status: Acute (2) Gait abnormality Status: Acute (3) Anxiety Status: Acute (4) Hypertension Status: Chronic (5) Morbid obesity Status: Chronic (6) Sinus tachycardia Status: Acute - Assessment and Plan (Free Text) Plan: Cont meds DC Juanito start metoprolol Consult and Discussed with Dr Simpson follow up [facility] plan to acute rehab. cont ferrous.
[2017-06-28 08:06] LABS: HEMOGLOBIN 8.8 g/dL (12.0-16.0); MEAN CELL VOLUME 89.6 fl (81.0-99.0); MEAN CORPUSCULAR HEMOGLOBIN 29.8 pg (27.0-31.0); MEAN CORPUSCULAR HGB CONC 33.2 g/dL (33.0-37.0); RBC 2.97 Mil/uL (3.80-5.20); RED CELL DISTRIBUTION WIDTH 13.4 % (11.5-14.5); WHITE BLOOD COUNT 5.1 K/uL (4.8-10.8)
[2017-06-28 08:16] LABS: ALB/GLOB RATIO 0.9 (1.0-2.1); ALBUMIN 2.9 g/dL (3.5-5.0); ALT/SGPT 34 U/L (9-52); AST/SGOT 37 U/L (14-36); BLOOD UREA NITROGEN 7 mg/dl (7-17); CALCIUM 8.5 mg/dL (8.4-10.2); GFR AFRICAN-AMERICAN > 60; GFR NON-AFRICAN AMERICAN > 60
[2017-06-28 08:37] VITALS: PULSE 92; RESP 20
[2017-06-28] MEDS: Metoprolol Succinate 25 mg XL Tab PO SCH (09:53)
[2017-06-28] MEDS: ROPINIROLE HCL 2 MG PO SCH (09:53)
[2017-06-28] MEDS: Cholecalciferol 1,000 INTLU TAB PO SCH (09:53)
[2017-06-28] MEDS: Enoxaparin 40 mg Syringe SC SCH (09:54)
[2017-06-28 13:15] VITALS: BP 104/69; TEMP 98.3; O2SAT 99
--- NOTE | 2017-06-28 13:24 | CP.PCM.PN ---
Subjective - Date & Time of Evaluation Date of Evaluation: 06/28/17 Time of Evaluation: 12:00 - Subjective Subjective: NO CHEST PAIN OR SOB NO PALPITATIONS Objective - Vital Signs/Intake and Output Vital Signs (last 24 hours): Temp Pulse Resp BP Pulse Ox 98.3 F 92 H 20 104/69 99 06/28/17 13:14 06/28/17 13:14 06/28/17 13:14 06/28/17 13:14 06/28/17 13:14 - Medications Medications: Current Medications Acetaminophen (Tylenol 325mg Tab) 325 mg PO Q4 PRN PRN Reason: Pain, Mild (1-3) Last Admin: 06/25/17 06:36 Dose: 325 mg Alprazolam (Xanax) 0.5 mg PO Q24H PRN PRN Reason: Anxiety Last Admin: 06/27/17 12:36 Dose: 0.5 mg Alprazolam (Xanax) 0.5 mg PO HS PRN PRN Reason: Sleep Last Admin: 06/27/17 22:33 Dose: 0.5 mg Artificial Tears (Artificial Tears) 2 drop OU Q4 PRN PRN Reason: Dry eyes Last Admin: 06/27/17 12:13 Dose: 2 drop Celecoxib (Celebrex) 100 mg PO BID [facility] Stop: 08/06/17 09:01 Last Admin: 06/28/17 09:52 Dose: 100 mg Cholecalciferol (Vitamin D) 2,000 intlu PO DAILY [facility] Last Admin: 06/28/17 09:53 Dose: 2,000 intlu Diphenhydramine HCl (Benadryl) 50 mg IVP Q6 PRN PRN Reason: Itching / Pruritus Enoxaparin Sodium (Lovenox) 40 mg SC DAILY [facility] PRN Reason: Protocol Last Admin: 06/28/17 09:54 Dose: 40 mg Ferrous Sulfate (Feosol) 325 mg PO BID [facility] Last Admin: 06/28/17 09:52 Dose: 325 mg Home Med (Paroxetine Hcl [Paxil]) 40 mg PO DAILY [facility] Last Admin: 06/28/17 09:53 Dose: 40 mg Home Med (Ropinirole Hcl [Requip]) 2 mg PO Q12 [facility] Last Admin: 06/28/17 09:53 Dose: 2 mg Metoprolol Succinate (Toprol Xl) 25 mg PO DAILY [facility] Last Admin: 06/28/17 09:53 Dose: 25 mg Ondansetron HCl (Zofran Inj) 4 mg IVP Q6 PRN PRN Reason: Nausea/Vomiting - Labs Labs: 06/28/17 06:24 06/28/17 06:24 - Respiratory Exam Respiratory Exam: Clear to Ausculation Bilateral - Cardiovascular Exam Cardiovascular Exam: REGULAR RHYTHM, +S1, +S2 - Additional Findings Additional findings: BOARD CERTIFIED FAMILY PHYSICIAN SHOWS SINUS RHYTHM, R 82 Assessment and Plan - Assessment and Plan (Free Text) Assessment: S/P TOTAL LEFT HIP REPLACEMENT ANEMIA WITH SINUS TACHYCARDIA YESTERDAY, BUT WITH NORMAL RATES TODAY ON METOPROLOL HYPERTENSION OVERWEIGHT Plan: OK TO DISCHARGE TODAY TO TCU CONTINUE METOPROLOL
--- NOTE | 2017-06-30 00:13 | CP.PCM.DIS ---
Provider - Provider Date of Admission: 06/24/17 18:46 Attending physician: Santos Malagon MD Primary care physician: Antoenlla Otero MD Time Spent in preparation of Discharge (in minutes): 30 Diagnosis - Discharge Diagnosis (1) Primary osteoarthritis of left hip Status: Acute (2) Gait abnormality Status: Acute (3) Anxiety Status: Acute (4) Hypertension Status: Chronic (5) Morbid obesity Status: Chronic (6) Sinus tachycardia Status: Acute Hospital Course - Lab Results Lab Results: Most Recent Lab Values WBC 5.1 K/uL (4.8-10.8) 06/28/17 06:24 RBC 2.97 Mil/uL (3.80-5.20) L 06/28/17 06:24 Hgb 8.8 g/dL (12.0-16.0) L 06/28/17 06:24 Hct 26.6 % (34.0-47.0) L 06/28/17 06:24 MCV 89.6 fl (81.0-99.0) 06/28/17 06:24 MCH 29.8 pg (27.0-31.0) 06/28/17 06:24 MCHC 33.2 g/dL (33.0-37.0) 06/28/17 06:24 RDW 13.4 % (11.5-14.5) 06/28/17 06:24 Plt Count 228 K/uL (130-400) 06/28/17 06:24 MPV 9.3 fl (7.2-11.7) 06/27/17 09:50 Neut % (Auto) 72.1 % (50.0-75.0) 06/27/17 09:50 Lymph % (Auto) 18.3 % (20.0-40.0) L 06/27/17 09:50 [place] % (Auto) 6.6 % (0.0-10.0) 06/27/17 09:50 Eos % (Auto) 2.6 % (0.0-4.0) 06/27/17 09:50 Baso % (Auto) 0.4 % (0.0-2.0) 06/27/17 09:50 Neut # (Auto) 4.0 K/uL (1.8-7.0) 06/27/17 09:50 Lymph # (Auto) 1.0 K/uL (1.0-4.3) 06/27/17 09:50 [place] # (Auto) 0.4 K/uL (0.0-0.8) 06/27/17 09:50 Eos # (Auto) 0.1 K/uL (0.0-0.7) 06/27/17 09:50 Baso # (Auto) 0.0 K/uL (0.0-0.2) 06/27/17 09:50 Sodium 142 mmol/l (132-148) 06/28/17 06:24 Potassium 3.8 MMOL/L (3.6-5.0) 06/28/17 06:24 Chloride 105 mmol/L (98-107) 06/28/17 06:24 Carbon Dioxide 29 mmol/L (22-30) 06/28/17 06:24 Anion Gap 12 (10-20) 06/28/17 06:24 BUN 7 mg/dl (7-17) 06/28/17 06:24 Creatinine 0.6 mg/dl (0.7-1.2) L 06/28/17 06:24 Est GFR ( Amer) > 60 06/28/17 06:24 Est GFR (Non-Af Amer) > 60 06/28/17 06:24 POC Glucose (mg/dL) 117 mg/dL (65-110) H 06/28/17 11:18 Random Glucose 102 mg/dL (65-105) 06/28/17 06:24 Hemoglobin A1c 5.8 % (4.2-6.5) 06/26/17 11:09 Calcium 8.5 mg/dL (8.4-10.2) 06/28/17 06:24 Iron 32 ug/dL (37-170) L 06/26/17 16:00 TIBC 209 ug/dL (250-450) L 06/26/17 16:00 % Saturation 15 % (20-55) L 06/26/17 16:00 Ferritin 67.8 ng/Ml (11.1-264.0) 06/26/17 11:09 Total Bilirubin 0.7 mg/dl (0.2-1.3) 06/28/17 06:24 AST 37 U/L (14-36) H 06/28/17 06:24 ALT 34 U/L (9-52) 06/28/17 06:24 Alkaline Phosphatase 85 U/L (38-126) 06/28/17 06:24 Total Protein 6.3 G/DL (6.3-8.2) 06/28/17 06:24 Albumin 2.9 g/dL (3.5-5.0) L 06/28/17 06:24 Globulin 3.4 gm/dL (2.2-3.9) 06/28/17 06:24 Albumin/Globulin Ratio 0.9 (1.0-2.1) L 06/28/17 06:24 Vitamin B12 384 pg/mL (239-931) 06/26/17 11:09 25-OH Vitamin D Total < 12.8 NG/ML (30.0-100.0) L 06/26/17 11:09 RBC Folate 1457 ng/mL RBC (>280) 06/26/17 11:09 Blood Type A POSITIVE 06/24/17 10:35 Blood Type Confirm A POSITIVE 06/24/17 11:15 Antibody Screen Negative 06/24/17 10:35 Crossmatch See Detail 06/24/17 10:35 BBK History Checked No verified bt 06/24/17 10:35 - Hospital Course Hospital Course: This id a 51 y/o female admitted for left THR. Immediate post op period was unremarkable except for episodes of tachycardia prob from anemia and anxiety. She was start on SSRI and was given ferrous. cardiology consult was made. She was started on PT and adviced subacute rehab. Discharge Exam - Head Exam Head Exam: NORMAL INSPECTION - Eye Exam Eye Exam: Normal appearance - Respiratory Exam Respiratory Exam: NORMAL BREATHING PATTERN - Cardiovascular Exam Cardiovascular Exam: REGULAR RHYTHM - GI/Abdominal Exam GI & Abdominal Exam: Normal Bowel Sounds - Neurological Exam Neurological exam: CN II-XII Intact, Normal Gait - Psychiatric Exam Psychiatric exam: Anxious Discharge Plan - Follow Up Plan Condition: GOOD Disposition: TRANSF TO SNF Instructions: Total Hip Replacement (DC) Additional Instructions: adviised follow up in TCU will cont all meds metoprolol cardiology eval follow up Referrals: Shanna PINEDA,Antonella Webber [Primary Care Provider] -
== END 2017-06-28 14:30 | DRG 470 ==
LOC: H.OPSURG 06:31 → H.TEL 18:46
PROVIDERS: ADMIT Family Medicine; ATTEND Family Medicine
PROC: 0SRB049 Replacement of Left Hip Joint with Ceramic on Polyethylene Synthetic Substitute, Cemented, Open Approach (ICD-10-PCS; principal; 2017-06-24 10:15)
PROC: F07Z9FZ Gait Training/Functional Ambulation Treatment using Assistive, Adaptive, Supportive or Protective Equipment (ICD-10-PCS; 2017-06-25)
DX: M16.12 Unilateral primary osteoarthritis, left hip (principal); Z68.42 Body mass index [BMI] 45.0-49.9, adult; E66.01 Morbid (severe) obesity due to excess calories; I10 Essential (primary) hypertension; D64.9 Anemia, unspecified; R00.0 Tachycardia, unspecified; G25.81 Restless legs syndrome; R26.89 Other abnormalities of gait and mobility; F41.9 Anxiety disorder, unspecified; E55.9 Vitamin D deficiency, unspecified; Z98.84 Bariatric surgery status

== ENCOUNTER 2017-06-28 15:00 | Inpatient (IN) | payer OTHER ==
[2017-06-28 15:18] VITALS: BMI 48.4
[2017-06-28] MEDS ORDERED: DiphenhydrAMINE 50 mg/ml Inj IVP PRN (15:51)
[2017-06-28 18:13] VITALS: RESP 20
[2017-06-28] MEDS: ROPINIROLE HCL 2 MG PO SCH (21:20)
[2017-06-29] MEDS: Enoxaparin 40 mg Syringe SC SCH (08:19)
[2017-06-29] MEDS: ROPINIROLE HCL 2 MG PO SCH ×2 (08:19→21:19)
[2017-06-29] MEDS: Cholecalciferol 1,000 INTLU TAB PO SCH (08:20)
--- NOTE | 2017-06-30 00:17 | CP.PCM.HP ---
History of Present Illness - History of Present Illness History of Present Illness: This is a 51 y/o female admitted for left THR. Patient had few episodes of tachycardia postoperatively probably due to mix of anemia and anxiety. She was started on phys therapy and suggested further therapy thru TCU. medical Hx OA hip anxiety Palpitation Obesity Present on Admission - Present on Admission Any Indicators Present on Admission: No History of DVT/PE: No History of Uncontrolled Diabetes: No Urinary Catheter: No Decubitus Ulcer Present: No Review of Systems - Cardiovascular Cardiovascular: Palpitations - Musculoskeletal Musculoskeletal: Arthralgias Past Patient History - Past Medical History & Family History Past Medical History?: Yes - Past Social History Smoking Status: Former Smoker - CARDIAC Hx Cardiac Disorders: Yes Hx Hypertension: Yes - PULMONARY Hx Respiratory Disorders: No - NEUROLOGICAL Hx Neurological Disorder: Yes Other/Comment: RLS - HEENT Hx HEENT Problems: No - RENAL Hx Chronic Kidney Disease: No - ENDOCRINE/METABOLIC Hx Endocrine Disorders: No - HEMATOLOGICAL/ONCOLOGICAL Hx Blood Disorders: No - INTEGUMENTARY Hx Dermatological Problems: No - MUSCULOSKELETAL/RHEUMATOLOGICAL Hx Arthritis: Yes - GASTROINTESTINAL Hx Gastrointestinal Disorders: No - GENITOURINARY/GYNECOLOGICAL Hx Genitourinary Disorders: No - PSYCHIATRIC Hx Psychophysiologic Disorder: Yes Hx Depression: Yes - SURGICAL HISTORY Hx Surgeries: Yes Other/Comment: lap banding x2 - ANESTHESIA Hx Anesthesia: Yes Hx Anesthesia Reactions: No Hx Malignant Hyperthermia: No Meds Allergies/Adverse Reactions: Allergies Allergy/AdvReac Type Severity Reaction Status Date / Time No Known Allergies Allergy Verified 06/20/14 15:40 Physical Exam - Head Exam Head Exam: NORMAL INSPECTION - Eye Exam Eye Exam: Normal appearance - Respiratory Exam Respiratory Exam: Clear to Auscultation Bilateral, NORMAL BREATHING PATTERN - GI/Abdominal Exam GI & Abdominal Exam: Normal Bowel Sounds - Neurological Exam Neurological exam: CN II-XII Intact, Oriented x3 Results - Vital Signs Recent Vital Signs: Last Vital Signs Temp 98.4 F 06/29/17 22:02 Pulse 96 H 06/29/17 22:02 Resp 20 06/29/17 22:02 BP 113/72 06/29/17 22:02 Pulse Ox 98 06/29/17 22:02 Assessment & Plan (1) Gait abnormality Status: Acute (2) Anxiety Status: Acute (3) Primary osteoarthritis of left hip Status: Acute (4) Sinus tachycardia Status: Acute (5) Hypertension Status: Chronic (6) Morbid obesity Status: Chronic - Assessment and Plan (Free Text) Plan: Cont meds Cont PT Pain meds refill all meds.
[2017-06-30] MEDS ORDERED: ROPINIROLE 2 MG PO ONE (02:46)
[2017-06-30] MEDS: Cholecalciferol 1,000 INTLU TAB PO SCH (08:38)
[2017-06-30] MEDS: Enoxaparin 40 mg Syringe SC SCH (08:38)
--- NOTE | 2017-06-30 10:17 | CP.PCM.CON ---
History of Present Illness - History of Present Illness History of Present Illness: I WAS ASKED TO FOLLOW THE PATIENT IN TCU BY DR OZUNA. THE PATIENT IS A 51 YEAR OLD FEMALE WHO UNDERWENT A LEFT THR 6 DAYS AGO WHO WAS ON 4N AND IS NOW DISCHARGED TO TCU FOR REHAB. SHE ALSO HAS A HISTORY OF HYPERTENSION AND IS OVERWEIGHT. WHEN ON 4N SHE HAD SINUS TACHYCARDIA UP TO THE 120'S THAT WAS PROBABLY FROM ANEMIA AND SHE WAS SWITCHED FROM LOSARTAN TO METOPROLOL WHICH CONTROLLED THE TACHYCARDIA. HER BLOOD PRESSURE HAS BEEN LOW NORMAL AND HER HEART RATE UNDER 100 BPM SINCE SHE WAS TRANSFERRED TO 7N SO THE METOPROLOL WAS NOT RESTARTED. SHE DENIES CHEST PAIN, PALPITATIONS OR SOB. SHE HAS BEEN DOING VERY WELL IN TCU AND ONLY HAS MINIMAL SURGICAL SITE PAIN. Past Patient History - Past Medical History & Family History Past Medical History?: Yes - Past Social History Smoking Status: Former Smoker - CARDIAC Hx Cardiac Disorders: Yes Hx Hypertension: Yes - PULMONARY Hx Respiratory Disorders: No - NEUROLOGICAL Hx Neurological Disorder: Yes Other/Comment: RLS - HEENT Hx HEENT Problems: No - RENAL Hx Chronic Kidney Disease: No - ENDOCRINE/METABOLIC Hx Endocrine Disorders: No - HEMATOLOGICAL/ONCOLOGICAL Hx Blood Disorders: No - INTEGUMENTARY Hx Dermatological Problems: No - MUSCULOSKELETAL/RHEUMATOLOGICAL Hx Arthritis: Yes - GASTROINTESTINAL Hx Gastrointestinal Disorders: No - GENITOURINARY/GYNECOLOGICAL Hx Genitourinary Disorders: No - PSYCHIATRIC Hx Psychophysiologic Disorder: Yes Hx Depression: Yes - SURGICAL HISTORY Hx Surgeries: Yes Other/Comment: lap banding x2 - ANESTHESIA Hx Anesthesia: Yes Hx Anesthesia Reactions: No Hx Malignant Hyperthermia: No Meds Allergies/Adverse Reactions: Allergies Allergy/AdvReac Type Severity Reaction Status Date / Time No Known Allergies Allergy Verified 06/20/14 15:40 - Medications Medications: Current Medications Acetaminophen (Tylenol 325mg Tab) 325 mg PO Q4 PRN PRN Reason: Pain, Mild (1-3) Alprazolam (Xanax) 0.5 mg PO TID PRN PRN Reason: Anxiety Last Admin: 06/30/17 08:37 Dose: 0.5 mg Celecoxib (Celebrex) 100 mg PO BID [facility] Last Admin: 06/30/17 08:38 Dose: 100 mg Cholecalciferol (Vitamin D) 2,000 intlu PO DAILY [facility] Last Admin: 06/30/17 08:38 Dose: 2,000 intlu Diphenhydramine HCl (Benadryl) 50 mg IVP Q6 PRN PRN Reason: Itching / Pruritus Docusate Sodium (Colace) 100 mg PO TID PRN PRN Reason: Constipation Enoxaparin Sodium (Lovenox) 40 mg SC DAILY [facility] PRN Reason: Protocol Last Admin: 06/30/17 08:38 Dose: 40 mg Ferrous Sulfate (Feosol) 325 mg PO TID [facility] Last Admin: 06/30/17 08:40 Dose: 325 mg Home Med (Ropinirole Hcl [Requip]) 2 mg PO Q12 [facility] Last Admin: 06/29/17 21:19 Dose: 2 mg Paroxetine HCl (Paxil) 40 mg PO DAILY [facility] Last Admin: 06/30/17 08:38 Dose: 40 mg Physical Exam - Respiratory Exam Respiratory Exam: Clear to Auscultation Bilateral - Cardiovascular Exam Cardiovascular Exam: REGULAR RHYTHM, +S1, +S2 - Extremities Exam Extremities exam: Positive for: pedal edema Results - Vital Signs Recent Vital Signs: Last Vital Signs Temp 97.5 F L 06/30/17 08:31 Pulse 90 06/30/17 08:31 Resp 20 06/30/17 08:31 BP 123/75 06/30/17 08:31 Pulse Ox 100 06/30/17 08:31 Assessment & Plan - Assessment and Plan (Free Text) Assessment: LEFT THR FOR SEVERE OA HYPERTENSION AT HOME-HER BLOOD PRESSURE HAS REMAINS NORMAL AT THE PRESENT TIME OFF MEDICATIONS OVERWEIGHT Plan: CONTINUE LOVENOX AND SUBACUTE REHAB
--- NOTE | 2017-06-30 14:57 | CP.PCM.PN ---
Subjective - Date & Time of Evaluation Date of Evaluation: 06/30/17 Time of Evaluation: 14:54 - Subjective Subjective: Patient states pain is well controlled. No new complaints. Objective - Vital Signs/Intake and Output Vital Signs (last 24 hours): Temp Pulse Resp BP Pulse Ox 97.5 F L 90 20 123/75 100 06/30/17 08:31 06/30/17 08:31 06/30/17 08:31 06/30/17 08:31 06/30/17 08:31 - Medications Medications: Current Medications Acetaminophen (Tylenol 325mg Tab) 325 mg PO Q4 PRN PRN Reason: Pain, Mild (1-3) Alprazolam (Xanax) 0.5 mg PO TID PRN PRN Reason: Anxiety Last Admin: 06/30/17 08:37 Dose: 0.5 mg Celecoxib (Celebrex) 100 mg PO BID [facility] Last Admin: 06/30/17 08:38 Dose: 100 mg Cholecalciferol (Vitamin D) 2,000 intlu PO DAILY [facility] Last Admin: 06/30/17 08:38 Dose: 2,000 intlu Diphenhydramine HCl (Benadryl) 50 mg IVP Q6 PRN PRN Reason: Itching / Pruritus Docusate Sodium (Colace) 100 mg PO TID PRN PRN Reason: Constipation Enoxaparin Sodium (Lovenox) 40 mg SC DAILY [facility] PRN Reason: Protocol Last Admin: 06/30/17 08:38 Dose: 40 mg Ferrous Sulfate (Feosol) 325 mg PO TID [facility] Last Admin: 06/30/17 12:10 Dose: 325 mg Home Med (Patient's Own Medication) 1 unit PO TID [facility] Last Admin: 06/30/17 14:16 Dose: 1 unit Paroxetine HCl (Paxil) 40 mg PO DAILY [facility] Last Admin: 06/30/17 08:38 Dose: 40 mg - Extremities Exam Additional comments: wound vac removed. incision intact, dry +ROM toes/ankle no erythema sensation intact +DP/PT pulses op site applied Assessment and Plan (1) Primary osteoarthritis of left hip Assessment & Plan: POD#6 s/p left THR wound vac removed cont PT/OT VTE proph ortho stable d/w Dr. Esteban, agrees with above Status: Acute
--- NOTE | 2017-06-30 15:07 | CP.PCM.PN ---
Subjective - Date & Time of Evaluation Date of Evaluation: 06/30/17 Time of Evaluation: 15:06 - Subjective Subjective: Patient has improved a lot Has no palpitations Is less anxious today. Objective - Vital Signs/Intake and Output Vital Signs (last 24 hours): Temp Pulse Resp BP Pulse Ox 97.5 F L 90 20 123/75 100 06/30/17 08:31 06/30/17 08:31 06/30/17 08:31 06/30/17 08:31 06/30/17 08:31 - Medications Medications: Current Medications Acetaminophen (Tylenol 325mg Tab) 325 mg PO Q4 PRN PRN Reason: Pain, Mild (1-3) Alprazolam (Xanax) 0.5 mg PO TID PRN PRN Reason: Anxiety Last Admin: 06/30/17 08:37 Dose: 0.5 mg Celecoxib (Celebrex) 100 mg PO BID [facility] Last Admin: 06/30/17 08:38 Dose: 100 mg Cholecalciferol (Vitamin D) 2,000 intlu PO DAILY [facility] Last Admin: 06/30/17 08:38 Dose: 2,000 intlu Diphenhydramine HCl (Benadryl) 50 mg IVP Q6 PRN PRN Reason: Itching / Pruritus Docusate Sodium (Colace) 100 mg PO TID PRN PRN Reason: Constipation Enoxaparin Sodium (Lovenox) 40 mg SC DAILY [facility] PRN Reason: Protocol Last Admin: 06/30/17 08:38 Dose: 40 mg Ferrous Sulfate (Feosol) 325 mg PO TID [facility] Last Admin: 06/30/17 12:10 Dose: 325 mg Home Med (Patient's Own Medication) 1 unit PO TID [facility] Last Admin: 06/30/17 14:16 Dose: 1 unit Paroxetine HCl (Paxil) 40 mg PO DAILY [facility] Last Admin: 06/30/17 08:38 Dose: 40 mg - Head Exam Head Exam: NORMAL INSPECTION - Eye Exam Eye Exam: Normal appearance - Respiratory Exam Respiratory Exam: Clear to Ausculation Bilateral - Cardiovascular Exam Cardiovascular Exam: REGULAR RHYTHM - GI/Abdominal Exam GI & Abdominal Exam: Normal Bowel Sounds - Neurological Exam Neurological Exam: Awake, Oriented x3 - Psychiatric Exam Psychiatric exam: Normal Mood - Skin Skin Exam: Normal Color Assessment and Plan (1) Gait abnormality Status: Acute (2) Primary osteoarthritis of left hip Status: Acute (3) Status post total hip replacement, right Status: Acute - Assessment and Plan (Free Text) Plan: Cont meds Cont PT pain meds
[2017-06-30] MEDS: ROPINIROLE HCL 2 MG PO SCH (20:53)
[2017-07-01] MEDS: Cholecalciferol 1,000 INTLU TAB PO SCH (08:20)
[2017-07-01] MEDS: Enoxaparin 40 mg Syringe SC SCH (08:21)
[2017-07-01] MEDS: ROPINIROLE HCL 2 MG PO SCH ×3 (08:21→21:45)
[2017-07-02] MEDS: ROPINIROLE HCL 2 MG PO SCH ×3 (09:14→22:26)
[2017-07-02] MEDS: Enoxaparin 40 mg Syringe SC SCH (09:14)
[2017-07-02] MEDS: Cholecalciferol 1,000 INTLU TAB PO SCH (09:15)
[2017-07-02] MEDS: Metoprolol Succinate 25 mg XL Tab PO SCH (12:39)
--- NOTE | 2017-07-02 12:57 | CP.PCM.PN ---
Subjective - Date & Time of Evaluation Date of Evaluation: 07/02/17 Time of Evaluation: 10:00 - Subjective Subjective: NO CHEST PAIN MO SOB FEELS GOOD AND DOING WELL AT REHAB Objective - Vital Signs/Intake and Output Vital Signs (last 24 hours): Temp Pulse Resp BP Pulse Ox 97.7 F 90 20 123/62 98 07/02/17 08:04 07/02/17 12:39 07/02/17 08:04 07/02/17 12:39 07/02/17 08:04 - Medications Medications: Current Medications Acetaminophen (Tylenol 325mg Tab) 650 mg PO Q4 PRN PRN Reason: for pain level 1-3 Last Admin: 07/02/17 05:10 Dose: 650 mg Alprazolam (Xanax) 0.5 mg PO TID PRN PRN Reason: Anxiety Last Admin: 06/30/17 21:31 Dose: 0.5 mg Celecoxib (Celebrex) 100 mg PO BID [facility] Last Admin: 07/02/17 09:14 Dose: 100 mg Cholecalciferol (Vitamin D) 2,000 intlu PO DAILY [facility] Last Admin: 07/02/17 09:15 Dose: 2,000 intlu Diphenhydramine HCl (Benadryl) 50 mg IVP Q6 PRN PRN Reason: Itching / Pruritus Docusate Sodium (Colace) 100 mg PO TID PRN PRN Reason: Constipation Ferrous Sulfate (Feosol) 325 mg PO TID [facility] Last Admin: 07/02/17 12:39 Dose: 325 mg Home Med (Patient's Own Medication) 1 unit PO TID@0900,1500,2100 [facility] Last Admin: 07/02/17 09:14 Dose: 1 unit Metoprolol Succinate (Toprol Xl) 25 mg PO DAILY [facility] Last Admin: 07/02/17 12:39 Dose: 25 mg Paroxetine HCl (Paxil) 40 mg PO DAILY [facility] Last Admin: 07/02/17 09:15 Dose: 40 mg - Respiratory Exam Respiratory Exam: Clear to Ausculation Bilateral - Cardiovascular Exam Cardiovascular Exam: REGULAR RHYTHM, +S1, +S2 Assessment and Plan - Assessment and Plan (Free Text) Assessment: HYPERTENSION TOTAL LHR FOR SEVERE OA OVERWEIGHT Plan: CONTINUE METOPROLOL CONTINUE SUBACUTE REHAB DISCHARGE PER REHAB TEAM
--- NOTE | 2017-07-02 14:47 | CP.PCM.PN ---
Subjective - Date & Time of Evaluation Date of Evaluation: 07/02/17 Time of Evaluation: 14:44 - Subjective Subjective: Patient states pain is well controlled. No new complaints. Objective - Vital Signs/Intake and Output Vital Signs (last 24 hours): Temp Pulse Resp BP Pulse Ox 97.7 F 90 20 123/62 98 07/02/17 08:04 07/02/17 12:39 07/02/17 08:04 07/02/17 12:39 07/02/17 08:04 - Medications Medications: Current Medications Acetaminophen (Tylenol 325mg Tab) 650 mg PO Q4 PRN PRN Reason: for pain level 1-3 Last Admin: 07/02/17 05:10 Dose: 650 mg Alprazolam (Xanax) 0.5 mg PO TID PRN PRN Reason: Anxiety Last Admin: 06/30/17 21:31 Dose: 0.5 mg Celecoxib (Celebrex) 100 mg PO BID [facility] Last Admin: 07/02/17 09:14 Dose: 100 mg Cholecalciferol (Vitamin D) 2,000 intlu PO DAILY [facility] Last Admin: 07/02/17 09:15 Dose: 2,000 intlu Diphenhydramine HCl (Benadryl) 50 mg IVP Q6 PRN PRN Reason: Itching / Pruritus Docusate Sodium (Colace) 100 mg PO TID PRN PRN Reason: Constipation Ferrous Sulfate (Feosol) 325 mg PO TID [facility] Last Admin: 07/02/17 12:39 Dose: 325 mg Home Med (Patient's Own Medication) 1 unit PO TID@0900,1500,2100 [facility] Last Admin: 07/02/17 09:14 Dose: 1 unit Metoprolol Succinate (Toprol Xl) 25 mg PO DAILY [facility] Last Admin: 07/02/17 12:39 Dose: 25 mg Paroxetine HCl (Paxil) 40 mg PO DAILY [facility] Last Admin: 07/02/17 09:15 Dose: 40 mg - Extremities Exam Additional comments: Left hip: +ROM ankle/toes, scant drainage. incision intact, dry, calves soft NT neg hoamns Assessment and Plan (1) Primary osteoarthritis of left hip Assessment & Plan: POD#8 f/u THR cont PT ortho stable OOB hip precaustions d/w Dr. Esteban, agrees with above Status: Acute
--- NOTE | 2017-07-03 00:36 | CP.PCM.PN ---
Subjective - Date & Time of Evaluation Date of Evaluation: 07/01/17 Time of Evaluation: 10:40 - Subjective Subjective: Patient feels a lot better Has no chest pain or SOB Has no fever. Objective - Vital Signs/Intake and Output Vital Signs (last 24 hours): Temp Pulse Resp BP Pulse Ox 97.2 F L 92 H 20 121/60 98 07/02/17 20:20 07/02/17 20:20 07/02/17 20:20 07/02/17 20:20 07/02/17 20:20 - Medications Medications: Current Medications Acetaminophen (Tylenol 325mg Tab) 650 mg PO Q4 PRN PRN Reason: for pain level 1-3 Last Admin: 07/02/17 05:10 Dose: 650 mg Alprazolam (Xanax) 0.5 mg PO TID PRN PRN Reason: Anxiety Last Admin: 06/30/17 21:31 Dose: 0.5 mg Celecoxib (Celebrex) 100 mg PO BID [facility] Last Admin: 07/02/17 16:36 Dose: 100 mg Cholecalciferol (Vitamin D) 2,000 intlu PO DAILY [facility] Last Admin: 07/02/17 09:15 Dose: 2,000 intlu Diphenhydramine HCl (Benadryl) 50 mg IVP Q6 PRN PRN Reason: Itching / Pruritus Docusate Sodium (Colace) 100 mg PO TID PRN PRN Reason: Constipation Ferrous Sulfate (Feosol) 325 mg PO TID [facility] Last Admin: 07/02/17 16:38 Dose: 325 mg Home Med (Patient's Own Medication) 1 unit PO TID@0900,1500,2100 [facility] Last Admin: 07/02/17 22:26 Dose: 1 unit Metoprolol Succinate (Toprol Xl) 25 mg PO DAILY [facility] Last Admin: 07/02/17 12:39 Dose: 25 mg Paroxetine HCl (Paxil) 40 mg PO DAILY [facility] Last Admin: 07/02/17 09:15 Dose: 40 mg - Head Exam Head Exam: NORMAL INSPECTION - Eye Exam Eye Exam: Normal appearance - ENT Exam ENT Exam: Mucous Membranes Moist - Respiratory Exam Respiratory Exam: Clear to Ausculation Bilateral - Cardiovascular Exam Cardiovascular Exam: REGULAR RHYTHM - GI/Abdominal Exam GI & Abdominal Exam: Soft - Neurological Exam Neurological Exam: Awake, Oriented x3 Assessment and Plan (1) Gait abnormality Status: Acute (2) Primary osteoarthritis of left hip Status: Acute (3) Status post total hip replacement, right Status: Acute - Assessment and Plan (Free Text) Plan: Con tmeds Cont tx Cont PT pain meds.
--- NOTE | 2017-07-03 00:38 | CP.PCM.PN ---
Subjective - Date & Time of Evaluation Date of Evaluation: 07/02/17 Time of Evaluation: 10:40 - Subjective Subjective: Patient continues to do well Has no fever. has no chest pain No palpitation Noted slightly elevated BP. Objective - Vital Signs/Intake and Output Vital Signs (last 24 hours): Temp Pulse Resp BP Pulse Ox 97.2 F L 92 H 20 121/60 98 07/02/17 20:20 07/02/17 20:20 07/02/17 20:20 07/02/17 20:20 07/02/17 20:20 - Medications Medications: Current Medications Acetaminophen (Tylenol 325mg Tab) 650 mg PO Q4 PRN PRN Reason: for pain level 1-3 Last Admin: 07/02/17 05:10 Dose: 650 mg Alprazolam (Xanax) 0.5 mg PO TID PRN PRN Reason: Anxiety Last Admin: 06/30/17 21:31 Dose: 0.5 mg Celecoxib (Celebrex) 100 mg PO BID [facility] Last Admin: 07/02/17 16:36 Dose: 100 mg Cholecalciferol (Vitamin D) 2,000 intlu PO DAILY [facility] Last Admin: 07/02/17 09:15 Dose: 2,000 intlu Diphenhydramine HCl (Benadryl) 50 mg IVP Q6 PRN PRN Reason: Itching / Pruritus Docusate Sodium (Colace) 100 mg PO TID PRN PRN Reason: Constipation Ferrous Sulfate (Feosol) 325 mg PO TID [facility] Last Admin: 07/02/17 16:38 Dose: 325 mg Home Med (Patient's Own Medication) 1 unit PO TID@0900,1500,2100 [facility] Last Admin: 07/02/17 22:26 Dose: 1 unit Metoprolol Succinate (Toprol Xl) 25 mg PO DAILY [facility] Last Admin: 07/02/17 12:39 Dose: 25 mg Paroxetine HCl (Paxil) 40 mg PO DAILY [facility] Last Admin: 07/02/17 09:15 Dose: 40 mg - Head Exam Head Exam: NORMAL INSPECTION - Eye Exam Eye Exam: Normal appearance - GI/Abdominal Exam GI & Abdominal Exam: Normal Bowel Sounds - Neurological Exam Neurological Exam: Awake, Oriented x3 - Psychiatric Exam Psychiatric exam: Normal Mood - Skin Skin Exam: Dry Assessment and Plan (1) Gait abnormality Status: Acute (2) Primary osteoarthritis of left hip Status: Acute (3) Status post total hip replacement, right Status: Acute - Assessment and Plan (Free Text) Plan: Con tmeds Cont PT Pain meds cont tx
[2017-07-03] MEDS: ROPINIROLE HCL 2 MG PO SCH ×2 (08:21→14:41)
[2017-07-03] MEDS: Cholecalciferol 1,000 INTLU TAB PO SCH (08:21)
[2017-07-03] MEDS: Metoprolol Succinate 25 mg XL Tab PO SCH ×2 (08:23→09:31)
--- NOTE | 2017-07-03 10:52 | CP.PCM.PN ---
Subjective - Date & Time of Evaluation Date of Evaluation: 07/03/17 Time of Evaluation: 09:00 - Subjective Subjective: NO CHEST PAIN OR SOB DID VERY WELL WITH REHAB Objective - Vital Signs/Intake and Output Vital Signs (last 24 hours): Temp Pulse Resp BP Pulse Ox 97.7 F 83 20 97/56 L 95 07/03/17 08:16 07/03/17 09:31 07/03/17 08:16 07/03/17 09:31 07/03/17 08:16 - Medications Medications: Current Medications Acetaminophen (Tylenol 325mg Tab) 650 mg PO Q4 PRN PRN Reason: for pain level 1-3 Last Admin: 07/03/17 06:36 Dose: 650 mg Alprazolam (Xanax) 0.5 mg PO TID PRN PRN Reason: Anxiety Last Admin: 06/30/17 21:31 Dose: 0.5 mg Celecoxib (Celebrex) 100 mg PO BID [facility] Last Admin: 07/03/17 08:21 Dose: 100 mg Cholecalciferol (Vitamin D) 2,000 intlu PO DAILY [facility] Last Admin: 07/03/17 08:21 Dose: 2,000 intlu Diphenhydramine HCl (Benadryl) 50 mg IVP Q6 PRN PRN Reason: Itching / Pruritus Docusate Sodium (Colace) 100 mg PO TID PRN PRN Reason: Constipation Ferrous Sulfate (Feosol) 325 mg PO TID [facility] Last Admin: 07/03/17 08:21 Dose: 325 mg Home Med (Patient's Own Medication) 1 unit PO TID@0900,1500,2100 [facility] Last Admin: 07/03/17 08:21 Dose: 1 unit Metoprolol Succinate (Toprol Xl) 25 mg PO DAILY [facility] Last Admin: 07/03/17 09:31 Dose: Not Given Paroxetine HCl (Paxil) 40 mg PO DAILY [facility] Last Admin: 07/03/17 08:22 Dose: 40 mg - Respiratory Exam Respiratory Exam: Clear to Ausculation Bilateral - Cardiovascular Exam Cardiovascular Exam: REGULAR RHYTHM, +S1, +S2 Assessment and Plan - Assessment and Plan (Free Text) Assessment: LEFT THR FOR SEVERE OA HYPERTENSION Plan: THE PATIENT WILL BE DISCHARGED TO HOME TODAY HER BLOOD PRESSURE HAS BEEN LOW NORMAL SO I AM RECOMMENDING THAT SHE BE DISCHARGED OFF ANTIHYPERTENSIVE MEDICATION AND I WILL SEE HER IN MY OFFICE IN ABOUT ONE WEEK TO RECHECK HER BLOOD PRESSURE
--- NOTE | 2017-07-03 15:02 | CP.PCM.DIS ---
<AdamAnthony Luis M - Last Filed: 07/03/17 14:55> Provider - Provider Date of Admission: 06/28/17 15:00 Attending physician: Santos Malagon MD Primary care physician: Antonella Otero MD Time Spent in preparation of Discharge (in minutes): 15 Diagnosis - Discharge Diagnosis (1) Status post total hip replacement, right Status: Acute (2) Hypertension Status: Chronic (3) Morbid obesity Status: Chronic Hospital Course - Hospital Course Hospital Course: 52 y/o woman w/ pmh of obesity, HTN, OA of the hip, s/p left total hip replacement admitted to TCU for further physical therapy. Patient fully cooperated w/ physcial therapy. Patient BP controlled but heart rate remained close to tachycardia but not over 90-92 bpm. Otherwise, patient has no complaints. Patient denies headaches, chest pain, dizziness, SOB, abdominal pain, nausea, vomiting, diarrhea, dysuria, or fever. The patient reports feeling better. The patient has been seen, examined, and deemed medically fit for discharge home. The patient is to follow up w/ ortho, Dr. Esteban in 4 days to remove amber. Patient to be discharged w/ rolling walker, aspirin 325 mg PO BID, celebrex 200 mg PO daily, and protonix 40 mg PO daily. Discharge Exam - Head Exam Head Exam: NORMAL INSPECTION - Eye Exam Eye Exam: Normal appearance - ENT Exam ENT Exam: Mucous Membranes Moist - Neck Exam Neck exam: Full Rom - Respiratory Exam Respiratory Exam: Clear to PA & Lateral. absent: Accessory Muscle Use, Decreased Breath Sounds, Rales, Rhonchi, Wheezes, Respiratory Distress - Cardiovascular Exam Cardiovascular Exam: REGULAR RHYTHM, RRR - GI/Abdominal Exam GI & Abdominal Exam: Normal Bowel Sounds, Soft. absent: Distended, Tenderness - Extremities Exam Additional comments: left hip dressed, c/d/i - Neurological Exam Neurological exam: Alert, Oriented x3 Additional comments: can ambulate unassisted but requires assistance w/ rolling walker for longer distances - Skin Skin Exam: Dry, Intact, Normal Color, Warm Discharge Plan - Follow Up Plan Condition: GOOD Disposition: HOME/ ROUTINE Instructions: Total Hip Replacement, Total Hip Replacement (DC), Preventing Falls Additional Instructions: APPOINTMENT MADE WITH DR. ESTEBAN TO REMOVE AMBER ON 07/07/17 AT 3:30 PM I was present during evaluation and discussed with Dr Adam zuluaga plans of care and tx Santos Malagon M.D. Referrals: María Esteban MD [Staff Provider] - Santos Malagon MD [Staff Provider] - Bridger Simpson MD [Staff Provider] - Shanna PINEDA,Antonella Webber [Primary Care Provider] - <Santos Malagon - Last Filed: 07/03/17 21:53> Provider - Provider Date of Admission: 06/28/17 15:00 Attending physician: Santos Malagon MD Primary care physician: Antonella Otero MD Diagnosis - Discharge Diagnosis (1) Gait abnormality Status: Acute (2) Primary osteoarthritis of left hip Status: Acute (3) Status post total hip replacement, right Status: Acute
[2017-07-03 16:30] VITALS: BP 139/69; PULSE 86; TEMP 97.2; O2SAT 99
== END 2017-07-03 18:15 | disposition home or self-care (01) | DRG 560 ==
LOC: H.TCU 15:00
PROVIDERS: ADMIT Family Medicine; ATTEND Family Medicine
PROC: F07Z9FZ Gait Training/Functional Ambulation Treatment using Assistive, Adaptive, Supportive or Protective Equipment (ICD-10-PCS; principal; 2017-06-28)
PROC: F08Z4FZ Home Management Treatment using Assistive, Adaptive, Supportive or Protective Equipment (ICD-10-PCS; 2017-06-28)
PROC: F07L6FZ Therapeutic Exercise Treatment of Musculoskeletal System - Lower Back / Lower Extremity using Assistive, Adaptive, Supportive or Protective Equipment (ICD-10-PCS; 2017-06-28)
DX: Z47.1 Aftercare following joint replacement surgery (principal); Z68.42 Body mass index [BMI] 45.0-49.9, adult; Z96.642 Presence of left artificial hip joint; R26.89 Other abnormalities of gait and mobility; E66.01 Morbid (severe) obesity due to excess calories; M16.12 Unilateral primary osteoarthritis, left hip; I10 Essential (primary) hypertension; D64.9 Anemia, unspecified; F41.9 Anxiety disorder, unspecified; Z87.891 Personal history of nicotine dependence; Z79.82 Long term (current) use of aspirin

== ENCOUNTER 2017-11-02 00:39 | Emergency (ER) | payer OTHER ==
[2017-11-02 00:39] VITALS: BMI 48.4
--- NOTE | 2017-11-02 01:16 | ED PDOC ---
- ECG O2 Sat by Pulse Oximetry: 100 Disposition - Disposition
--- NOTE | 2017-11-02 01:18 | ED PDOC ---
HPI: SOB/CHF/COPD Chief Complaint (Provider): Shortness of breath History Per: Patient History/Exam Limitations: no limitations Onset/Duration Of Symptoms: Hrs (3) Current Symptoms Are (Timing): Gone Now Associated Symptoms: Other (nasal congestion ) <Nette Ledesma - Last Filed: 11/02/17 01:35> <Eunice Frankel - Last Filed: 11/02/17 02:50> Time Seen by Provider: 11/02/17 01:07 Chief Complaint (Nursing): Anxiety Additional Complaint(s): 52 yo ,f, PMhx/o HTN, Prediabetes, Anxiety presents c/o sudden shortness of breath started yesterday at 9 pm, while on a panick attack, associated with mild dizziness, and nasal congestion . Patient reports she was at home on her bedroom, denies a significant stress factor to cause her a panick attack, but she had the sensation she would have a heart attack. She denies chest pain, cough, hemoptysis, palpitation, diaphoresis, tremor, nausea, epigastric abdominal pain, calf pain, leg swelling, hx/o DVT. She reports SOB subsided after taking Xanax 0.5 mg. she reports having 2 mimosa drinks yesterday in a baby shower. PMD: Dr Simpson (Nette Ledesma) Past Medical History Reviewed: Historical Data, Nursing Documentation, Vital Signs - Medical History PMH: Anxiety, Arthritis, Depression, GERD, HTN Denies: Chronic Kidney Disease - Surgical History Other surgeries: -Right hip total replacement - Family History Family History: States: Unknown Family Hx - Social History Alcohol: Social Drugs: Denies <Nette Ledesma - Last Filed: 11/02/17 01:35> <Eunice Frankel - Last Filed: 11/02/17 02:50> Vital Signs: Last Vital Signs Temp 98.3 F 11/02/17 02:45 Pulse 96 H 11/02/17 02:45 Resp 18 11/02/17 02:45 BP 120/79 11/02/17 02:45 Pulse Ox 99 11/02/17 02:45 - Home Medications Home Medications: Ambulatory Orders Medication Instructions Recorded Paroxetine HCl [Paxil] 40 mg PO DAILY 06/24/17 Enoxaparin [Lovenox] 40 mg SC DAILY syr 06/27/17 Ferrous Sulfate [Feosol] 325 mg PO BID tab 06/27/17 Ropinirole HCl [Requip] 2 mg PO Q12 06/27/17 Acetaminophen [Tylenol 325mg tab] 325 mg PO Q4 PRN tab 06/28/17 Alprazolam [Xanax] 0.5 mg PO HS PRN #1 06/28/17 Celecoxib [celeBREX] 100 mg PO BID cap 06/28/17 Cholecalciferol [Vitamin D 1000 IU] 2,000 intlu PO DAILY tab 06/28/17 Polyethylene Glycol/Polyvinyl 2 drop OU Q4 PRN bottle 06/28/17 [Artificial Tears] Aspirin [Aspirin EC] 325 mg PO BID 07/03/17 Pantoprazole [Protonix] 40 mg PO DAILY 07/03/17 - Allergies Allergies/Adverse Reactions: Allergies Allergy/AdvReac Type Severity Reaction Status Date / Time No Known Allergies Allergy Verified 11/02/17 01:01 Curb-65 Severity Score - CURB-65 Severity Score Confusion: No Bun >19mg/dl (>7mmol/L): No Respiratory Rate greater than/equal to 30: No Systolic BP <90 or Diastolic BP less than/equal 60mmHg: No Age >64: No Curb-65 Score: 0 Percentage 30-day mortality: 0.6% <Nette Ledesma - Last Filed: 11/02/17 01:35> Wells Criteria for PE - Wells Criteria for Pulmonary Embolism Clinical Signs and Symptoms of DVT: No P.E is #1 Diagnosis, or Equally Likely: No Heart Rate >100: No Immobilization at least 3 days;Surgery previous 4 weeks: No Previous, objectively diagnosed PE or DVT: No Hemoptysis: No Malignancy w/treatment within 6 months, or palliative: No Total Score: 0 <Nette Ledesma - Last Filed: 11/02/17 01:35> Review of Systems ROS Statement: Except As Marked, All Systems Reviewed And Found Negative Respiratory: Positive for: Shortness of Breath <Nette Ledesma - Last Filed: 11/02/17 01:35> Physical Exam - Physical Exam Appears: Positive for: Well, No Acute Distress Head Exam: Positive for: ATRAUMATIC, NORMAL INSPECTION, NORMOCEPHALIC Skin: Positive for: Normal Color Eye Exam: Positive for: Normal appearance ENT: Positive for: Normal ENT Inspection Neck: Positive for: Normal Cardiovascular/Chest: Positive for: Regular Rate, Rhythm, Tachycardia Respiratory: Positive for: Normal Breath Sounds Gastrointestinal/Abdominal: Positive for: Normal Exam, Soft. Negative for: Tenderness, Distended, Guarding Back: Positive for: Normal Inspection. Negative for: L CVA Tenderness, R CVA Tenderness Extremity: Positive for: Normal ROM. Negative for: Tenderness, Pedal Edema, Calf Tenderness Neurologic/Psych: Positive for: Alert, Oriented <Nette Ledesma - Last Filed: 11/02/17 01:35> - Laboratory Results Result Diagrams: 11/02/17 01:16 - ECG ECG Rhythm: Positive for: Sinus Tachycardia O2 Sat by Pulse Oximetry: 100 <Nette Ledesma - Last Filed: 11/02/17 01:35> - Laboratory Results Result Diagrams: 11/02/17 01:16 11/02/17 01:16 <Eunice Frankel - Last Filed: 11/02/17 02:50> Medical Decision Making <Nette Ledesma - Last Filed: 11/02/17 01:35> <Eunice Frankel - Last Filed: 11/02/17 02:50> Medical Decision Makin:10 Am Patient asymptomatic during evaluation. no medication needed at this moment Initial impression: Shortness of breast 2/2 panic attack Differential Asthma, PE, Anaphylaxis, CAD, PNA Plan CBC, CMP, troponin EKG CXR -reevaluate (Nette Ledesma) Time: 02:45 MD Note: Patient has been seen and evaluated by me. Patient came in for panic attack and anxiety. EKG and labs reviewed and were found to be normal. Her potassium was a little low and I repleted it. Patient feels better at this time. She has been informed to follow up with her primary medical doctor. ----- Scribe Attestation: Documented by Anthony Valenzuela, acting as a scribe for Eunice Frankel MD Provider Scribe Attestation: All medical record entries made by the Scribe were at my direction and personally dictated by me. I have reviewed the chart and agree that the record accurately reflects my personal performance of the history, physical exam, medical decision making, and the department course for this patient. I have also personally directed, reviewed, and agree with the discharge instructions and disposition. (Eunice Frankel) Disposition <Nette Ledesma - Last Filed: 11/02/17 01:35> <Eunice Frankel - Last Filed: 11/02/17 02:50> - Clinical Impression Clinical Impression: Anxiety attack - Disposition Condition: IMPROVED Additional Instructions: follow up with your primary doctor in in 2 days return to the ED with any worsening or concerning symptoms Instructions: Anxiety, Adult (DC) Forms: [employer] ([place])
[2017-11-02 01:22] LABS: BASO # 0.1 K/uL (0.0-0.2); BASO % 0.9 % (0.0-2.0); EOS # 0.1 K/uL (0.0-0.7); EOS % 1.9 % (0.0-4.0); HEMOGLOBIN 12.2 g/dL (12.0-16.0); LYMPH # 2.3 K/uL (1.0-4.3); LYMPH % 37.6 % (20.0-40.0); MEAN CELL VOLUME 85.1 fl (81.0-99.0); MEAN CORPUSCULAR HEMOGLOBIN 27.3 pg (27.0-31.0); MEAN CORPUSCULAR HGB CONC 32.1 g/dL (33.0-37.0); MEAN PLATELET VOLUME 9.2 fl (7.2-11.7); MONO # 0.4 K/uL (0.0-0.8); MONO % 7.3 % (0.0-10.0); NEUT # 3.2 K/uL (1.8-7.0); NEUT % 52.3 % (50.0-75.0); NRBC % 0.1 % (0.0-0.0); RBC 4.45 Mil/uL (3.80-5.20); RED CELL DISTRIBUTION WIDTH 14.1 % (11.5-14.5); WHITE BLOOD COUNT 6.1 K/uL (4.8-10.8)
[2017-11-02 01:37] LABS: ALB/GLOB RATIO 1.3 (1.0-2.1); ALBUMIN 3.8 g/dL (3.5-5.0); AST/SGOT 24 U/L (14-36); BLOOD UREA NITROGEN 17 mg/dl (7-17); CALCIUM 8.9 mg/dL (8.4-10.2); GFR AFRICAN-AMERICAN > 60; GFR NON-AFRICAN AMERICAN > 60
[2017-11-02 01:38] LABS: ALT/SGPT 26 U/L (9-52)
[2017-11-02] MEDS ORDERED: Potassium Chloride 20 mEq ER Tab PO ONE ×2 (02:21→02:40)
[2017-11-02 02:45] VITALS: BP 120/79; PULSE 96; RESP 18; TEMP 98.3; O2SAT 99
--- NOTE | 2017-11-02 08:18 | RAD ---
Date of service: 11/02/2017 HISTORY: chest pain COMPARISON: No prior. FINDINGS: LUNGS: No active pulmonary disease. PLEURA: No significant pleural effusion identified, no pneumothorax apparent. CARDIOVASCULAR: Normal. OSSEOUS STRUCTURES: No significant abnormalities. VISUALIZED UPPER ABDOMEN: Normal. OTHER FINDINGS: None. IMPRESSION: No active disease.
== END 2017-11-02 02:51 | disposition home or self-care (01) ==
LOC: H.ER 00:39
DX: F41.0 Panic disorder [episodic paroxysmal anxiety] (principal); I10 Essential (primary) hypertension; K21.9 Gastro-esophageal reflux disease without esophagitis

== ENCOUNTER 2018-08-04 08:35 | Inpatient (IN) | payer OTHER ==
[2018-08-04 09:26] VITALS: BMI 46.0
[2018-08-04] MEDS ORDERED: Propofol 10 mg/ml Inj (20 ML) ONE (11:53)
[2018-08-04] MEDS ORDERED: Succinylcholine Chloride 20 mg/ml Syr (5 ml) IV ONE (11:54)
[2018-08-04] MEDS ORDERED: Rocuronium 10 mg/ml (5 ml) ONE ×2 (11:54→15:01)
[2018-08-04] MEDS ORDERED: Phenylephrine 10 mg/ml Inj ONE (11:54)
[2018-08-04] MEDS ORDERED: Etomidate 20 mg/10ml Inj IV ONE (11:54)
[2018-08-04] MEDS ORDERED: EPINEPHrine 1 mg/ml (1:1000) Inj ONE (12:23)
[2018-08-04] MEDS ORDERED: Absorbable Gelatin Sponge Size 12-7 ONE (12:23)
[2018-08-04] MEDS ORDERED: Bupivacaine 0.5% Inj(30mL) ONE (12:23)
[2018-08-04] MEDS ORDERED: Thrombin Topical 5,000 Int Units Spray Kit ONE (12:24)
[2018-08-04] MEDS ORDERED: Morphine 5 mg/10 ml preservative-free Inj(Duramorph) ONE (12:43)
[2018-08-04] MEDS ORDERED: Midazolam 2 MG/2 ML VIAL ONE (12:49)
[2018-08-04] MEDS ORDERED: Lidocaine 4% (Laryng-O-Jet) Kit MM ONE (12:50)
[2018-08-04] MEDS ORDERED: Sodium Chloride 0.9% 10 ML IV ONE (13:40)
[2018-08-04] MEDS ORDERED: ePHEDrine 50 mg/ml Inj ONE (13:40)
[2018-08-04] MEDS ORDERED: Bupivacaine 0.5% 50 ML IJ ONE (14:49)
[2018-08-04] MEDS ORDERED: EPINEPHrine 1 mg/ml (1:1000) Inj IV ONE (14:50)
[2018-08-04] MEDS ORDERED: Sodium Chloride 0.9% Inj (10mL) IV ONE (14:50)
[2018-08-04] MEDS ORDERED: Neostigmine 1:1000 (1 mg/ml) Inj ONE (15:14)
[2018-08-04] MEDS ORDERED: Vancomycin 1 g Inj IVPB ONE (15:20)
--- NOTE | 2018-08-04 16:41 | PCM.SURG1 ---
Surgeon's Initial Post Op Note - Surgeon's Notes Surgeon: María Esteban MD Chain Carrier: Ran Arthur PA-C; Dayanara Wong, Bonifacio Moreno DPM Type of Anesthesia: General Endo, Spinal Pre-Operative Diagnosis: Right hip OA Operative Findings: see op report Post-Operative Diagnosis: same as pre-op dx Operation Performed: R THR Specimen/Specimens Removed: right hip femoral head and soft tissue Estimated Blood Loss: EBL {In ML}: 200 Date of Surgery/Procedure: 08/04/18 Time of Surgery/Procedure: 13:45
[2018-08-04] MEDS ORDERED: oxyCODONE 5 mg Immediate Release Tab PO PRN (16:48)
[2018-08-04] MEDS ORDERED: Artificial Tears Opht Soln OU PRN (17:00)
--- NOTE | 2018-08-04 17:11 | CP.PCM.HP ---
<Margaret Bah - Last Filed: 08/04/18 16:58> History of Present Illness - History of Present Illness History of Present Illness: 53 yr old F with PMHx hypertension, osteoarthritis bilateral hips, left total hip replacement, anxiety, lap band x 2 admitted for severe pain and abnormal gait secondary to osteoarthritis right hip. Patient is POD #0 s/p right total hip replacement, no complications, EBL 200cc. Denies chest pain, SOB or dizziness. PMHx:hypertension, osteoarthritis bilateral hips, left total hip replacement, anxiety, lap band x 2 SurgHx: left total hip replacement, lap band x 2 Present on Admission - Present on Admission Any Indicators Present on Admission: No History of DVT/PE: No History of Uncontrolled Diabetes: No Urinary Catheter: No Decubitus Ulcer Present: No Review of Systems - Constitutional Constitutional: absent: Chills - EENT Eyes: absent: Blurred Vision Nose/Mouth/Throat: absent: Sore Throat - Cardiovascular Cardiovascular: absent: Chest Pain, Dyspnea - Respiratory Respiratory: absent: Cough - Gastrointestinal Gastrointestinal: absent: Nausea, Vomiting - Genitourinary Genitourinary: absent: Dysuria - Musculoskeletal Musculoskeletal: absent: Numbness, Tingling - Psychiatric Psychiatric: absent: Confusion - Endocrine Endocrine: absent: Palpitations - Hematologic/Lymphatic Hematologic: absent: Easy Bleeding, Easy Bruising Past Patient History - Past Medical History & Family History Past Medical History?: Yes - Past Social History Smoking Status: Former Smoker - CARDIAC Hx Cardiac Disorders: Yes Hx Hypertension: Yes - PULMONARY Hx Respiratory Disorders: No - NEUROLOGICAL Hx Neurological Disorder: No Other/Comment: Restless leg syndrome - HEENT Hx HEENT Problems: No - RENAL Hx Chronic Kidney Disease: No - ENDOCRINE/METABOLIC Hx Endocrine Disorders: No Other/Comment: "pre diabetic" - HEMATOLOGICAL/ONCOLOGICAL Hx Blood Disorders: No - INTEGUMENTARY Hx Dermatological Problems: No - MUSCULOSKELETAL/RHEUMATOLOGICAL Hx Musculoskeletal Disorders: Yes Hx Arthritis: Yes Hx Falls: No Hx Herniated Disk: Yes - GASTROINTESTINAL Hx Gastrointestinal Disorders: No - GENITOURINARY/GYNECOLOGICAL Hx Genitourinary Disorders: No - PSYCHIATRIC Hx Psychophysiologic Disorder: Yes Hx Anxiety: Yes Hx Depression: Yes Hx Emotional Abuse: No Hx Physical Abuse: No Hx Substance Use: No - SURGICAL HISTORY Hx Surgeries: Yes Hx Gastric Bypass Surgery: Yes (LAP BAND-IN AND OUT-5 YEARS AGO) Hx Joint Replacement: Yes (LEFT HIP TOTAL REPLACEMENT-2018) Other/Comment: Hx lap banding x2 - ANESTHESIA Hx Anesthesia: Yes Hx Anesthesia Reactions: No Hx Malignant Hyperthermia: No Has any member of the family had a problem w/ anesthesia?: No Meds Allergies/Adverse Reactions: Allergies Allergy/AdvReac Type Severity Reaction Status Date / Time No Known Allergies Allergy Verified 11/02/17 01:01 Physical Exam - Head Exam Head Exam: NORMAL INSPECTION - Eye Exam Eye Exam: EOMI - ENT Exam ENT Exam: Mucous Membranes Moist - Respiratory Exam Respiratory Exam: Clear to Auscultation Bilateral, NORMAL BREATHING PATTERN - Cardiovascular Exam Cardiovascular Exam: REGULAR RHYTHM, +S1, +S2 - GI/Abdominal Exam GI & Abdominal Exam: Normal Bowel Sounds, Soft. absent: Tenderness - Extremities Exam Extremities exam: Positive for: pedal pulses present. Negative for: calf tenderness Additional comments: right hip dressing c/d/i - Neurological Exam Neurological exam: Alert, Oriented x3 - Psychiatric Exam Psychiatric exam: Normal Affect, Normal Mood - Skin Skin Exam: Dry, Normal Color, Warm Results - Vital Signs Recent Vital Signs: Last Vital Signs Temp 98.9 F 08/04/18 09:43 Pulse 89 08/04/18 09:43 Resp 18 08/04/18 09:43 BP 132/86 08/04/18 09:43 Pulse Ox 98 08/04/18 09:43 - Labs Labs: Laboratory Results - last 24 hr 08/04/18 09:35 Blood Type A POSITIVE Antibody Screen Negative Crossmatch See Detail BBK History Checked Patient has bt Assessment & Plan - Assessment and Plan (Free Text) Assessment: 53 yr old F with PMHx hypertension, osteoarthritis bilateral hips, left total hip replacement, anxiety, lap band x 2 admitted for severe pain and abnormal gait secondary to osteoarthritis right hip. Patient is POD #0 s/p right total hip replacement, no complications, EBL 200cc. Right Total Hip Replacement -POD #0 s/p right total hip replacement, no complications, EBL 200cc -admit to med/surg -Ortho: Dr. Esteban, will follow recommendations -PT/OT -pain management -f/u CBC, BMP in AM Hypertension -chronic, controlled -continue home medication: HCTZ 12.5 mg/Losartan 50 mg PO QD -monitor BP -heart healthy diet Generalized Anxiety/Moderate Major Depressive Disorder -chronic, controlled -continue home medication: Venlafaxine 75 mg PO QD, Xanax 0.5 mg PO PRN anxiety DVT prophylaxis -Lovenox 40 mg SC QD - Date & Time Date: 08/04/18 Time: 17:00 <Nikki Beatty - Last Filed: 08/05/18 19:14> Results - Vital Signs Recent Vital Signs: Last Vital Signs Temp 97.9 F 08/05/18 16:07 Pulse 94 H 08/05/18 16:07 Resp 18 08/05/18 16:07 BP 105/70 08/05/18 16:07 Pulse Ox 95 08/05/18 16:07 - Labs Result Diagrams: 08/05/18 05:05 08/05/18 05:05 Labs: Laboratory Results - last 24 hr 08/04/18 08/05/18 08/05/18 19:01 01:13 05:05 WBC 5.2 RBC 3.47 L Hgb 10.4 L D Hct 31.4 L MCV 90.5 MCH 30.0 MCHC 33.1 RDW 14.0 Plt Count 180 MPV 9.6 Neut % (Auto) 57.4 Lymph % (Auto) 32.0 Vance % (Auto) 8.9 Eos % (Auto) 1.2 Baso % (Auto) 0.5 Neut # (Auto) 3.0 Lymph # (Auto) 1.7 Vance # (Auto) 0.5 Eos # (Auto) 0.1 Baso # (Auto) 0.0 Sodium Potassium Chloride Carbon Dioxide Anion Gap BUN Creatinine Est GFR ( Amer) Est GFR (Non-Af Amer) Random Glucose Calcium CK-MB (Mass) 4.14 H Troponin I < 0.0120 < 0.0120 08/05/18 08/05/18 05:05 07:50 WBC RBC Hgb Hct MCV MCH MCHC RDW Plt Count MPV Neut % (Auto) Lymph % (Auto) Vance % (Auto) Eos % (Auto) Baso % (Auto) Neut # (Auto) Lymph # (Auto) Vance # (Auto) Eos # (Auto) Baso # (Auto) Sodium 139 Potassium 3.9 Chloride 101 Carbon Dioxide 31 H Anion Gap 11 BUN 16 Creatinine 0.7 Est GFR ( Amer) > 60 Est GFR (Non-Af Amer) > 60 Random Glucose 110 H Calcium 8.1 L CK-MB (Mass) Troponin I < 0.0120 Attending/Attestation - Attestation I have personally seen and examined this patient.: Yes I have fully participated in the care of the patient.: Yes I have reviewed all pertinent clinical information: Yes Notes (Text): Agree with findings and plan as above.
[2018-08-04] MEDS ORDERED: Lactated Ringer's 1,000 ML IV ONE (18:20)
[2018-08-04 19:34] LABS: CK-MB 4.14 ng/mL (0.0-3.38)
[2018-08-04] MEDS ORDERED: ROPINIROLE HCL 2 MG PO SCH (21:00)
[2018-08-04] MEDS ORDERED: ceFAZolin 1 GM in Sodium Chloride 0.9% 100 ML IVPB ONE (22:00)
[2018-08-04] MEDS: oxyCODONE 10 mg ER Tab (oxyCONTIN) PO SCH (22:58)
[2018-08-05] MEDS ORDERED: ceFAZolin 1 GM in Sodium Chloride 0.9% 100 ML IVPB ONE (04:00)
[2018-08-05 05:52] LABS: BASO % 0.5 % (0.0-2.0); EOS # 0.1 K/uL (0.0-0.7); EOS % 1.2 % (0.0-4.0); HEMOGLOBIN 10.4 g/dL (12.0-16.0); LYMPH # 1.7 K/uL (1.0-4.3); MEAN CELL VOLUME 90.5 fl (81.0-99.0); MEAN CORPUSCULAR HGB CONC 33.1 g/dL (33.0-37.0); MEAN PLATELET VOLUME 9.6 fl (7.2-11.7); MONO # 0.5 K/uL (0.0-0.8); MONO % 8.9 % (0.0-10.0); NEUT % 57.4 % (50.0-75.0); NRBC % 0.1 % (0.0-0.0); RBC 3.47 Mil/uL (3.80-5.20); WHITE BLOOD COUNT 5.2 K/uL (4.8-10.8)
[2018-08-05 06:00] LABS: BLOOD UREA NITROGEN 16 mg/dl (7-17); CALCIUM 8.1 mg/dL (8.4-10.2); GFR NON-AFRICAN AMERICAN > 60
--- NOTE | 2018-08-05 07:04 | OP ---
PROCEDURE DATE: 08/04/2018 PREOPERATIVE DIAGNOSIS: Right hip osteoarthritis. POSTOPERATIVE DIAGNOSIS: Right hip osteoarthritis. PROCEDURES: 1. Right total hip replacement. 2. A 22 modifier for obesity. ATTENDING SURGEON: María Esteban MD GOLD PROSPECTOR: Ran Arthur PA-C IMPLANTS SIZE: [place] 3D-printed cup measuring size 50, Accolade II size 4 stem with high offset, 36 mm ceramic head with -5 neck length, neutral liner. ANESTHESIA TYPE: Spinal and sedation. ESTIMATED BLOOD LOSS: 300 mL. SPECIMEN: None. COMPLICATIONS: None. HISTORY: Patient with long standing history of right hip pain refractory of conservative management. X-ray had shown significant loss of joint space. After the failure of extensive conservative management, I had offered the patient the treatment option of total hip replacement. I reviewed the risk and benefits of the surgery with the patient in detail. The risks include, but not limited to bleeding, infection, nerve vessel damage, continuous pain, blood loss, instability, dislocation, iatrogenic fracture, blood clots, need for further surgery, and even . The patient fully understood the risks and benefits and opted to proceed. Patient underwent necessary preoperative medical workup and once medically cleared, was scheduled for the procedure. DESCRIPTION OF PROCEDURE: On the day of the surgery, the patient was admitted to preoperative holding area. A laterality sheet was completed, confirming correct operative site. An informed consent was signed from the patient and the correct operative hip was marked. Patient was brought into the operating room table. He underwent spinal anesthesia with sedation. Afterwards, the patient was placed on the operating room table in lateral decubitus position. All the bony prominences were well padded and an axillary roll was also placed. The hip was draped and prepped in the standard sterile manner. Timeout was completed, confirming correct operative site. We proceeded with Navigation assisted total hip replacement. Two pins were placed in the iliac crest to attach the antenna. Additional checkpoint was placed on the greater trochanter and on top of the acetabular roof. We utilized a standard postero-lateral approach. Using a #10 blade, a skin incision was made. The soft tissue dissection was taken down until the IT band fascia was identified incised along it's fibers. The short external rotators were exposed and excised with the capsule. It was tagged with heavy sutures preserved for a later repair. Afterwards, the hip was dislocated and proposed neck cut was made. The Acetabulum was exposed using standard retractors. The remnant of torn labrum was excised along with pulvinar. The acetabulum was reamed using motorized reamers to the size that provide adequate depth and coverage. Next, size 50 cup was securely fixed in to the acetabular socket in appropriate version and inclination. A polyethylene liner was secured in to the acetubular cup. The femoral canal was exposed using standard retractors. Using the box chisel, lateral femoral neck was removed. Femoral canal was broached up to size 4 broach, which provide a secure fit and adequate fill of femoral canal. A high-offset trial neck was secured onto the broach. Different trial heads with variable neck lengths were secured onto the trial neck. The hip was reduced and taken through extensive range of motion to test stability, soft tissue tensioning and leg length. It was noted the 36 mm head with -5 neck length provide adequate stability, soft tissue tensioning and length. Next, size 4 stem with high offset was securely fixed into the femoral canal. Then, a size 36 mm ceramic head with -5 neck length was secured onto the neck of femoral stem. Hip was reduced and taken through final range of motion to assess for stability, soft tissue tensioning and leg length which was found to be satisfactory. Finally, the wound was copiously irrigated using pulse lavage solution. All loose bodies were removed. The short external rotators were repaired to greater trochanter using drill holes and heavy sutures. IT band fascia was tightly closed using heavy sutures and rest the wound was closed standard manner. Sterile dressing was applied. Patient was transferred to stretcher. Post-op instructions included posterior hip precautions. During this procedure, I was assisted by Ran Arthur PA-C, who assisted in positioning the patient on the operating room table as well as transferring the patient from the operating room table to the recovery room stretcher. In addition, Ran Arthur PA-C assisted me during the actual operative procedure by positioning, protecting critical neurovascular structures, exposure of the joint, and proper positioning of the implants. The presence of Ran Arthur PA-C as my operative recycling assistant was medically necessary to ensure the utmost safety of the patient in the pre, intra-, and post-operative periods. Due to the patient's morbid obesity, this procedure was more difficult than a standard knee arthroscopy. This required extra time during prepping and draping, as well as an extended operative time. The length of the case was prolonged due to these factors by 100%. María Esteban MD
--- NOTE | 2018-08-05 08:56 | CP.PCM.PN ---
Subjective - Date & Time of Evaluation Date of Evaluation: 08/05/18 Time of Evaluation: 08:15 - Subjective Subjective: 53 yo F s/p RTHR POD#1 Pt seen and examined at bediside, comfortable in bed Pt denies any current right hip pain, well controlled with pain meds Pt reports some chest tightiness and acid reflux, occasional nausea Pt denies any chest pain, SOB, lightheadedness, V/D Objective - Vital Signs/Intake and Output Vital Signs (last 24 hours): Temp Pulse Resp BP Pulse Ox 98.8 F 72 18 97/66 L 100 08/05/18 08:09 08/05/18 08:09 08/05/18 08:09 08/05/18 08:09 08/05/18 08:09 - Medications Medications: Current Medications Acetaminophen (Tylenol 325mg Tab) 325 mg PO Q4 PRN PRN Reason: pain1-3or fever Alprazolam (Xanax) 0.5 mg PO DAILY PRN PRN Reason: Anxiety Artificial Tears (Artificial Tears) 2 drop OU Q4 PRN PRN Reason: Dry eyes Celecoxib (Celebrex) 100 mg PO Q12 [facility] Last Admin: 08/04/18 22:58 Dose: 100 mg Docusate Sodium (Colace) 100 mg PO TID [facility] Last Admin: 08/04/18 22:58 Dose: 100 mg Enoxaparin Sodium (Lovenox) 40 mg SC DAILY [facility]; Protocol Famotidine (Pepcid) 20 mg PO BID [facility] HCTZ/Losartan Potassium (Hyzaar 12.5 Mg-50 Mg) 1 tab PO DAILY [facility] Home Med (Ropinirole Hcl [Requip]) 2 mg PO Q12 [facility] Acetaminophen (Ofirmev) 100 mls @ 400 mls/hr IVPB Q6H [facility]; Protocol Stop: 08/05/18 11:46 Last Admin: 08/05/18 05:39 Dose: 400 mls/hr Meclizine HCl (Antivert) 12.5 mg PO DAILY [facility] Ondansetron HCl (Zofran Inj) 4 mg IVP Q6 PRN PRN Reason: Nausea/Vomiting Oxycodone HCl (Oxycontin Extended Release Tab) 10 mg PO Q12 [facility] Stop: 08/18/18 21:01 Last Admin: 08/04/18 22:58 Dose: 10 mg Oxycodone HCl (Oxycodone Immediate Release Tab) 5 mg PO Q6 PRN PRN Reason: pain4-7 Pregabalin (Lyrica) 50 mg PO DAILY [facility] Last Admin: 08/04/18 10:00 Dose: 50 mg Tramadol HCl (Ultram) 50 mg PO Q4 PRN PRN Reason: pain8-10 Venlafaxine HCl (Effexor Xr) 75 mg PO DAILY [facility] - Labs Labs: 08/05/18 05:05 08/05/18 05:05 - Constitutional Appears: Well - Respiratory Exam Respiratory Exam: Clear to Ausculation Bilateral, NORMAL BREATHING PATTERN - Cardiovascular Exam Cardiovascular Exam: REGULAR RHYTHM, RRR - Extremities Exam Additional comments: Right Hip: Dressing C/D/I, RICHARD dressing in place and functioning well Hip abduction pillow in place NVID Calves soft and non tender b/l Normal ROM at ankle Assessment and Plan - Assessment and Plan (Free Text) Assessment: 53yo F s/p RTHR POD#1 Plan: DVT ppx- start lovenox today PT/OT- WBAT RLE Follow posterior hip precautions LAbs reviewed / f/u labs daily EKG reveals NSR, cardiology consult pending Famotidine ordered Incentive Spirometer Will follow Discussed with Dr. Esteban
[2018-08-05] MEDS ORDERED: HCTZ/Losartan 12.5/50 Tab PO SCH (09:00)
[2018-08-05] MEDS: oxyCODONE 10 mg ER Tab (oxyCONTIN) PO SCH ×2 (09:50→22:20)
--- NOTE | 2018-08-05 10:01 | CP.PCM.CON ---
History of Present Illness - History of Present Illness History of Present Illness: THE PATIENT IS A 53 YEAR OLD FEMALE THAT I FOLLOW IN MY OFFICE FOR HYPERTENSION. SHE IS MARKEDLY OVERWEIGHT AND ALSO HAS ANXIETY WITH PANIC ATTACKS. SHE HAD SEVERE BILATERAL HIP OA DUE TO WEIGHT AND HAD A LEFT THE LAST YEAR AND NOW U NDERWENT A RIGHT THR YESTERDAY. I HAVE BEEN ASKED TO SEE AND FOLLOW HER. SHE HAD CHEST PAIN LAST NIGHT BUT NONE TODAY AND SHE BELIEVES IT IS DUE TO ANXIETY AND HAD A NORMAL PHARMACOLOGICAL STRESS TEST ABOUT A YEAR AGO. Past Patient History - Past Medical History & Family History Past Medical History?: Yes - Past Social History Smoking Status: Former Smoker - CARDIAC Hx Cardiac Disorders: Yes Hx Hypertension: Yes - PULMONARY Hx Respiratory Disorders: No - NEUROLOGICAL Hx Neurological Disorder: No Other/Comment: Restless leg syndrome - HEENT Hx HEENT Problems: No - RENAL Hx Chronic Kidney Disease: No - ENDOCRINE/METABOLIC Hx Endocrine Disorders: No Other/Comment: "pre diabetic" - HEMATOLOGICAL/ONCOLOGICAL Hx Blood Disorders: No - INTEGUMENTARY Hx Dermatological Problems: No - MUSCULOSKELETAL/RHEUMATOLOGICAL Hx Musculoskeletal Disorders: Yes Hx Arthritis: Yes Hx Falls: No Hx Herniated Disk: Yes - GASTROINTESTINAL Hx Gastrointestinal Disorders: No - GENITOURINARY/GYNECOLOGICAL Hx Genitourinary Disorders: No - PSYCHIATRIC Hx Psychophysiologic Disorder: Yes Hx Anxiety: Yes Hx Depression: Yes Hx Emotional Abuse: No Hx Physical Abuse: No Hx Substance Use: No - SURGICAL HISTORY Hx Surgeries: Yes Hx Gastric Bypass Surgery: Yes (LAP BAND-IN AND OUT-5 YEARS AGO) Hx Joint Replacement: Yes (LEFT HIP TOTAL REPLACEMENT-2018) Other/Comment: Hx lap banding x2 - ANESTHESIA Hx Anesthesia: Yes Hx Anesthesia Reactions: No Hx Malignant Hyperthermia: No Has any member of the family had a problem w/ anesthesia?: No Meds Allergies/Adverse Reactions: Allergies Allergy/AdvReac Type Severity Reaction Status Date / Time No Known Allergies Allergy Verified 11/02/17 01:01 - Medications Medications: Current Medications Acetaminophen (Tylenol 325mg Tab) 325 mg PO Q4 PRN PRN Reason: pain1-3or fever Alprazolam (Xanax) 0.5 mg PO DAILY PRN PRN Reason: Anxiety Artificial Tears (Artificial Tears) 2 drop OU Q4 PRN PRN Reason: Dry eyes Celecoxib (Celebrex) 100 mg PO Q12 [facility] Last Admin: 08/04/18 22:58 Dose: 100 mg Docusate Sodium (Colace) 100 mg PO TID [facility] Last Admin: 08/04/18 22:58 Dose: 100 mg Enoxaparin Sodium (Lovenox) 40 mg SC DAILY [facility]; Protocol Famotidine (Pepcid) 20 mg PO BID [facility] HCTZ/Losartan Potassium (Hyzaar 12.5 Mg-50 Mg) 1 tab PO DAILY [facility] Home Med (Ropinirole Hcl [Requip]) 2 mg PO Q12 [facility] Acetaminophen (Ofirmev) 100 mls @ 400 mls/hr IVPB Q6H [facility]; Protocol Stop: 08/05/18 11:46 Last Admin: 08/05/18 05:39 Dose: 400 mls/hr Meclizine HCl (Antivert) 12.5 mg PO DAILY [facility] Ondansetron HCl (Zofran Inj) 4 mg IVP Q6 PRN PRN Reason: Nausea/Vomiting Oxycodone HCl (Oxycontin Extended Release Tab) 10 mg PO Q12 [facility] Stop: 08/18/18 21:01 Last Admin: 08/05/18 09:50 Dose: Not Given Oxycodone HCl (Oxycodone Immediate Release Tab) 5 mg PO Q6 PRN PRN Reason: pain4-7 Pregabalin (Lyrica) 50 mg PO DAILY [facility] Last Admin: 08/04/18 10:00 Dose: 50 mg Tramadol HCl (Ultram) 50 mg PO Q4 PRN PRN Reason: pain8-10 Venlafaxine HCl (Effexor Xr) 75 mg PO DAILY [facility] Physical Exam - Respiratory Exam Respiratory Exam: Clear to Auscultation Bilateral - Cardiovascular Exam Cardiovascular Exam: REGULAR RHYTHM, +S1, +S2 - Extremities Exam Additional comments: TRACE LE EDEMA - Additional Findings Additional findings: EKG NSR BUT SUSPECT ARM LEAD REVERSAL TROPONINS NORMAL X 3 CPK IS UNRELIABLE DUE TO HAVING HAS SURGERY YESTERDAY BP IS LOW Results - Vital Signs Recent Vital Signs: Last Vital Signs Temp 98.8 F 08/05/18 08:09 Pulse 72 08/05/18 08:09 Resp 18 08/05/18 08:09 BP 97/66 L 08/05/18 08:09 Pulse Ox 100 08/05/18 08:09 - Labs Result Diagrams: 08/05/18 05:05 08/05/18 05:05 Labs: Laboratory Results - last 24 hr 08/04/18 08/04/18 08/05/18 09:35 19:01 01:13 WBC RBC Hgb Hct MCV MCH MCHC RDW Plt Count MPV Neut % (Auto) Lymph % (Auto) [place] % (Auto) Eos % (Auto) Baso % (Auto) Neut # (Auto) Lymph # (Auto) [place] # (Auto) Eos # (Auto) Baso # (Auto) Sodium Potassium Chloride Carbon Dioxide Anion Gap BUN Creatinine Est GFR ( Amer) Est GFR (Non-Af Amer) Random Glucose Calcium CK-MB (Mass) 4.14 H Troponin I < 0.0120 < 0.0120 Blood Type A POSITIVE Antibody Screen Negative Crossmatch See Detail BBK History Checked Patient has bt 08/05/18 08/05/18 08/05/18 05:05 05:05 07:50 WBC 5.2 RBC 3.47 L Hgb 10.4 L D Hct 31.4 L MCV 90.5 MCH 30.0 MCHC 33.1 RDW 14.0 Plt Count 180 MPV 9.6 Neut % (Auto) 57.4 Lymph % (Auto) 32.0 [place] % (Auto) 8.9 Eos % (Auto) 1.2 Baso % (Auto) 0.5 Neut # (Auto) 3.0 Lymph # (Auto) 1.7 [place] # (Auto) 0.5 Eos # (Auto) 0.1 Baso # (Auto) 0.0 Sodium 139 Potassium 3.9 Chloride 101 Carbon Dioxide 31 H Anion Gap 11 BUN 16 Creatinine 0.7 Est GFR ( Amer) > 60 Est GFR (Non-Af Amer) > 60 Random Glucose 110 H Calcium 8.1 L CK-MB (Mass) Troponin I < 0.0120 Blood Type Antibody Screen Crossmatch BBK History Checked Assessment & Plan - Assessment and Plan (Free Text) Assessment: HIP REPLACEMENT YESTERDAY FOR SEVERE OA HYPERTENSION HISTORY-BP IS LOW TDAY MOST PROBABLY FROM ANESTHESIA AND LOW VOLUME STATUS CHEST PAIN YESTERDAY MOST PROBABLY FROM ANXIETY-TROPONINS ARE NORMAL AND PATIENT HAD NORMAL STRESS TEST ARM LEAD REVERSAL ON EKG Plan: TO PATIENT WAS ADMITTED TO ON TELEMETRY HOLD LOSARTAN/HCTZ FOR NOW BP IS LOW IV FLUIDS-WILL BEGIN 0.9 NS AT 100/ML PER HOUR AND OBSERVE BP REPEAT EKG
[2018-08-05] MEDS ORDERED: Sodium Chloride 0.9% 1,000 ML IV SCH (11:15)
[2018-08-05] MEDS: Venlafaxine 75 mg ER Cap PO SCH (11:16)
--- NOTE | 2018-08-05 11:25 | CARD ---
APPROVED REPORT Date of service: 08/04/2018 EKG Measurement Heart [id number] [id number] <Conclusion> Normal sinus rhythm Possible lead misplacement of I and aVR. Otherwise normal ECG
--- NOTE | 2018-08-05 12:42 | RAD ---
PROCEDURE: Right Hip Radiographs. HISTORY: s/p RTHR COMPARISON: 07/29/2018 TECHNIQUE: 2 views obtained. FINDINGS: BONES: No fracture appreciated. Bilateral hip prostheses are in place. JOINTS: Bilateral hip prosthesis are in place. The right is an interval change. No hardware failure appreciated. L4-5 bilateral lumbar facet hypertrophic arthrosis. SOFT TISSUES: Left hemipelvic phleboliths OTHER FINDINGS: None. IMPRESSION: Interval right total hip replacement. No interval fractures or hardware failure appreciated.
--- NOTE | 2018-08-05 12:59 | CP.PCM.PN ---
<Chantel Watson - Last Filed: 08/05/18 14:19> Subjective - Date & Time of Evaluation Date of Evaluation: 08/05/18 Time of Evaluation: 12:59 - Subjective Subjective: Pt seen and examined sitting up in chair next to bed. Multiple episodes of vomiting this morning, not tolerating PO solids. Denies CP, SOB, fever and dizziness. Objective - Vital Signs/Intake and Output Vital Signs (last 24 hours): Temp Pulse Resp BP Pulse Ox 98.1 F 79 18 104/67 99 08/05/18 12:14 08/05/18 12:14 08/05/18 12:14 08/05/18 12:14 08/05/18 12:14 - Medications Medications: Current Medications Acetaminophen (Tylenol 325mg Tab) 325 mg PO Q4 PRN PRN Reason: pain1-3or fever Alprazolam (Xanax) 0.25 mg PO DAILY PRN PRN Reason: Anxiety Last Admin: 08/05/18 11:15 Dose: 0.25 mg Artificial Tears (Artificial Tears) 2 drop OU Q4 PRN PRN Reason: Dry eyes Celecoxib (Celebrex) 100 mg PO Q12 [facility] Last Admin: 08/05/18 11:16 Dose: 100 mg Docusate Sodium (Colace) 100 mg PO TID [facility] Last Admin: 08/05/18 09:56 Dose: 100 mg Enoxaparin Sodium (Lovenox) 40 mg SC DAILY [facility]; Protocol Famotidine (Pepcid) 20 mg PO BID [facility] Last Admin: 08/05/18 09:56 Dose: 20 mg Ferrous Sulfate (Feosol) 325 mg PO DAILY [facility] HCTZ/Losartan Potassium (Hyzaar 12.5 Mg-50 Mg) 1 tab PO DAILY [facility] Home Med (Ropinirole Hcl [Requip]) 2 mg PO Q12 [facility] Sodium Chloride (Sodium Chloride 0.9%) 1,000 mls @ 100 mls/hr IV .Q10H [facility] Stop: 08/06/18 11:15 Meclizine HCl (Antivert) 12.5 mg PO DAILY [facility] Ondansetron HCl (Zofran Inj) 4 mg IVP Q6 PRN PRN Reason: Nausea/Vomiting Oxycodone HCl (Oxycontin Extended Release Tab) 10 mg PO Q12 [facility] Stop: 08/18/18 21:01 Last Admin: 08/05/18 09:50 Dose: Not Given Oxycodone HCl (Oxycodone Immediate Release Tab) 5 mg PO Q6 PRN PRN Reason: pain4-7 Tramadol HCl (Ultram) 50 mg PO Q4 PRN PRN Reason: pain8-10 Venlafaxine HCl (Effexor Xr) 75 mg PO DAILY [facility] Last Admin: 08/05/18 11:16 Dose: 75 mg - Labs Labs: 08/05/18 05:05 08/05/18 05:05 - Constitutional Appears: No Acute Distress - Head Exam Head Exam: NORMAL INSPECTION - Respiratory Exam Respiratory Exam: Clear to Ausculation Bilateral, NORMAL BREATHING PATTERN. absent: Respiratory Distress - Cardiovascular Exam Cardiovascular Exam: REGULAR RHYTHM - GI/Abdominal Exam GI & Abdominal Exam: Soft. absent: Tenderness - Extremities Exam Additional comments: right hip dressing c/d/i - Neurological Exam Neurological Exam: Alert, Awake - Psychiatric Exam Psychiatric exam: Anxious - Skin Skin Exam: Normal Color, Warm Assessment and Plan - Assessment and Plan (Free Text) Assessment: 53 yr old F with PMHx hypertension, osteoarthritis bilateral hips, left total hip replacement, anxiety, lap band x 2 admitted for severe pain and abnormal gait secondary to osteoarthritis right hip. Patient is POD #1 s/p right total hip replacement, no complications, EBL 200cc. Plan: Right Total Hip Replacement -POD #1 s/p right total hip replacement, no complications, EBL 200cc -admit to med/surg -Ortho: Dr. Esteban, will follow recommendations -PT/OT -pain management -f/u CBC, BMP in AM Hypertension -chronic, controlled -continue home medication: HCTZ 12.5 mg/Losartan 50 mg PO QD -monitor BP -heart healthy diet Generalized Anxiety/Moderate Major Depressive Disorder -chronic, controlled -continue home medication: Venlafaxine 75 mg PO QD, Xanax 0.5 mg PO PRN anxiety DVT prophylaxis -Lovenox 40 mg SC QD <Nikki Beatty - Last Filed: 08/05/18 19:11> Objective - Vital Signs/Intake and Output Vital Signs (last 24 hours): Temp Pulse Resp BP Pulse Ox 97.9 F 94 H 18 105/70 95 08/05/18 16:07 08/05/18 16:07 08/05/18 16:07 08/05/18 16:07 08/05/18 16:07 - Medications Medications: Current Medications Acetaminophen (Tylenol 325mg Tab) 325 mg PO Q4 PRN PRN Reason: pain1-3or fever Alprazolam (Xanax) 0.25 mg PO DAILY PRN PRN Reason: Anxiety Last Admin: 08/05/18 11:15 Dose: 0.25 mg Artificial Tears (Artificial Tears) 2 drop OU Q4 PRN PRN Reason: Dry eyes Celecoxib (Celebrex) 100 mg PO Q12 [facility] Last Admin: 08/05/18 11:16 Dose: 100 mg Docusate Sodium (Colace) 100 mg PO TID [facility] Last Admin: 08/05/18 16:56 Dose: 100 mg Enoxaparin Sodium (Lovenox) 40 mg SC DAILY [facility]; Protocol Famotidine (Pepcid) 20 mg PO BID [facility] Last Admin: 08/05/18 16:56 Dose: 20 mg Ferrous Sulfate (Feosol) 325 mg PO DAILY [facility] Last Admin: 08/05/18 13:35 Dose: 325 mg HCTZ/Losartan Potassium (Hyzaar 12.5 Mg-50 Mg) 1 tab PO DAILY [facility] Home Med (Ropinirole Hcl [Requip]) 2 mg PO Q12 [facility] Sodium Chloride (Sodium Chloride 0.9%) 1,000 mls @ 100 mls/hr IV .Q10H [facility] Stop: 08/06/18 11:15 Meclizine HCl (Antivert) 12.5 mg PO DAILY [facility] Ondansetron HCl (Zofran Inj) 4 mg IVP Q6 PRN PRN Reason: Nausea/Vomiting Oxycodone HCl (Oxycontin Extended Release Tab) 10 mg PO Q12 [facility] Stop: 08/18/18 21:01 Last Admin: 08/05/18 09:50 Dose: Not Given Oxycodone HCl (Oxycodone Immediate Release Tab) 5 mg PO Q6 PRN PRN Reason: pain4-7 Tramadol HCl (Ultram) 50 mg PO Q4 PRN PRN Reason: pain8-10 Venlafaxine HCl (Effexor Xr) 75 mg PO DAILY [facility] Last Admin: 08/05/18 11:16 Dose: 75 mg - Labs Labs: 08/05/18 05:05 05/08/19 05:05 Attending/Attestation - Attestation I have personally seen and examined this patient.: Yes I have fully participated in the care of the patient.: Yes I have reviewed all pertinent clinical information, including history, physical exam and plan: Yes Notes (Text): Agree with findings and plan as above.
--- NOTE | 2018-08-05 14:13 | CARD ---
APPROVED REPORT Date of service: 08/05/2018 EKG Measurement Heart [id number] <Conclusion> Normal sinus rhythm Normal ECG
[2018-08-05] MEDS: Enoxaparin 40 mg Syringe SC SCH (22:19)
[2018-08-06 06:00] LABS: BASO % 0.3 % (0.0-2.0); EOS # 0.1 K/uL (0.0-0.7); EOS % 2.1 % (0.0-4.0); HEMOGLOBIN 9.3 g/dL (12.0-16.0); LYMPH # 1.4 K/uL (1.0-4.3); LYMPH % 23.9 % (20.0-40.0); MEAN CELL VOLUME 89.7 fl (81.0-99.0); MEAN CORPUSCULAR HEMOGLOBIN 29.5 pg (27.0-31.0); MEAN CORPUSCULAR HGB CONC 32.9 g/dL (33.0-37.0); MEAN PLATELET VOLUME 9.7 fl (7.2-11.7); MONO # 0.5 K/uL (0.0-0.8); MONO % 8.6 % (0.0-10.0); NEUT # 3.7 K/uL (1.8-7.0); NEUT % 65.1 % (50.0-75.0); NRBC % 0.1 % (0.0-0.0); RBC 3.17 Mil/uL (3.80-5.20); WHITE BLOOD COUNT 5.7 K/uL (4.8-10.8)
[2018-08-06 06:12] LABS: ALB/GLOB RATIO 1.1 (1.0-2.1); ALBUMIN 3.1 g/dL (3.5-5.0); ALT/SGPT 30 U/L (9-52); AST/SGOT 33 U/L (14-36); BLOOD UREA NITROGEN 10 mg/dl (7-17); CALCIUM 7.7 mg/dL (8.4-10.2); GFR NON-AFRICAN AMERICAN > 60
[2018-08-06] MEDS ORDERED: Potassium Chloride 20 mEq ER Tab PO ONE (08:07)
--- NOTE | 2018-08-06 08:32 | CP.PCM.PN ---
Subjective - Date & Time of Evaluation Date of Evaluation: 08/06/18 Time of Evaluation: 08:00 - Subjective Subjective: Patient seen and examined at bedside comfortable. Pain is moderate but controlled as local pain medications wore off. Tolerating PT well. No other complaints. Objective - Vital Signs/Intake and Output Vital Signs (last 24 hours): Temp Pulse Resp BP Pulse Ox 98.2 F 97 H 18 114/78 98 08/06/18 08:03 08/06/18 08:03 08/06/18 08:03 08/06/18 08:03 08/06/18 08:03 - Medications Medications: Current Medications Acetaminophen (Tylenol 325mg Tab) 325 mg PO Q4 PRN PRN Reason: pain1-3or fever Alprazolam (Xanax) 0.25 mg PO DAILY PRN PRN Reason: Anxiety Last Admin: 08/05/18 22:24 Dose: 0.25 mg Artificial Tears (Artificial Tears) 2 drop OU Q4 PRN PRN Reason: Dry eyes Celecoxib (Celebrex) 100 mg PO Q12 [facility] Last Admin: 08/05/18 22:19 Dose: 100 mg Docusate Sodium (Colace) 100 mg PO TID [facility] Last Admin: 08/05/18 16:56 Dose: 100 mg Enoxaparin Sodium (Lovenox) 40 mg SC DAILY [facility]; Protocol Last Admin: 08/05/18 22:19 Dose: 40 mg Famotidine (Pepcid) 20 mg PO BID [facility] Last Admin: 08/05/18 16:56 Dose: 20 mg Ferrous Sulfate (Feosol) 325 mg PO DAILY [facility] Last Admin: 08/05/18 13:35 Dose: 325 mg HCTZ/Losartan Potassium (Hyzaar 12.5 Mg-50 Mg) 1 tab PO DAILY [facility] Home Med (Ropinirole Hcl [Requip]) 2 mg PO Q12 [facility] Sodium Chloride (Sodium Chloride 0.9%) 1,000 mls @ 100 mls/hr IV .Q10H [facility] Stop: 08/06/18 11:15 Last Admin: 08/05/18 22:07 Dose: Not Given Meclizine HCl (Antivert) 12.5 mg PO DAILY [facility] Ondansetron HCl (Zofran Inj) 4 mg IVP Q6 PRN PRN Reason: Nausea/Vomiting Oxycodone HCl (Oxycontin Extended Release Tab) 10 mg PO Q12 [facility] Stop: 08/18/18 21:01 Last Admin: 08/05/18 22:20 Dose: Not Given Oxycodone HCl (Oxycodone Immediate Release Tab) 5 mg PO Q6 PRN PRN Reason: pain4-7 Potassium Chloride (K-Dur 20 Meq Er Tab) 20 meq PO ONCE ONE Stop: 08/06/18 08:08 Tramadol HCl (Ultram) 50 mg PO Q4 PRN PRN Reason: pain8-10 Venlafaxine HCl (Effexor Xr) 75 mg PO DAILY [facility] Last Admin: 08/05/18 11:16 Dose: 75 mg - Labs Labs: 08/06/18 04:35 08/06/18 04:35 - Extremities Exam Additional comments: RLE: RICHARD dressing intact mild thigh swelling calves soft NT b/l sensation intact SP/DP/TN motor intact EHL/FHL/TA/G pedal pulse intact Assessment and Plan (1) Status post total hip replacement, right Assessment & Plan: POD#1 s/p R ROSE MARIE -RICHARD dressing intact, maintain -PT/OT -posterior hip precautions -abd pillow -orthopedically stable for discharge -d/w Dr. Esteban who agrees with above Status: Acute
[2018-08-06] MEDS: Enoxaparin 40 mg Syringe SC SCH (08:54)
[2018-08-06] MEDS: Venlafaxine 75 mg ER Cap PO SCH (08:55)
[2018-08-06] MEDS: oxyCODONE 10 mg ER Tab (oxyCONTIN) PO SCH ×2 (08:56→22:04)
--- NOTE | 2018-08-06 09:46 | CP.PCM.PN ---
Subjective - Date & Time of Evaluation Date of Evaluation: 08/06/18 Time of Evaluation: 08:30 - Subjective Subjective: NO CHEST PAIN OR SOB Objective - Vital Signs/Intake and Output Vital Signs (last 24 hours): Temp Pulse Resp BP Pulse Ox 98.2 F 97 H 18 114/78 98 08/06/18 08:03 08/06/18 08:03 08/06/18 08:03 08/06/18 08:03 08/06/18 08:03 - Medications Medications: Current Medications Acetaminophen (Tylenol 325mg Tab) 325 mg PO Q4 PRN PRN Reason: pain1-3or fever Last Admin: 08/06/18 08:59 Dose: 325 mg Alprazolam (Xanax) 0.25 mg PO DAILY PRN PRN Reason: Anxiety Last Admin: 08/05/18 22:24 Dose: 0.25 mg Artificial Tears (Artificial Tears) 2 drop OU Q4 PRN PRN Reason: Dry eyes Celecoxib (Celebrex) 100 mg PO Q12 [facility] Last Admin: 08/06/18 08:56 Dose: 100 mg Docusate Sodium (Colace) 100 mg PO TID [facility] Last Admin: 08/06/18 08:55 Dose: 100 mg Enoxaparin Sodium (Lovenox) 40 mg SC DAILY [facility]; Protocol Last Admin: 08/06/18 08:54 Dose: 40 mg Famotidine (Pepcid) 20 mg PO BID [facility] Last Admin: 08/06/18 08:54 Dose: 20 mg Ferrous Sulfate (Feosol) 325 mg PO DAILY [facility] Last Admin: 08/06/18 08:55 Dose: 325 mg HCTZ/Losartan Potassium (Hyzaar 12.5 Mg-50 Mg) 1 tab PO DAILY [facility] Home Med (Ropinirole Hcl [Requip]) 2 mg PO Q12 [facility] Sodium Chloride (Sodium Chloride 0.9%) 1,000 mls @ 100 mls/hr IV .Q10H [facility] Stop: 08/06/18 11:15 Last Admin: 08/05/18 22:07 Dose: Not Given Meclizine HCl (Antivert) 12.5 mg PO DAILY [facility] Ondansetron HCl (Zofran Inj) 4 mg IVP Q6 PRN PRN Reason: Nausea/Vomiting Oxycodone HCl (Oxycontin Extended Release Tab) 10 mg PO Q12 [facility] Stop: 08/18/18 21:01 Last Admin: 08/06/18 08:56 Dose: Not Given Oxycodone HCl (Oxycodone Immediate Release Tab) 5 mg PO Q6 PRN PRN Reason: pain4-7 Tramadol HCl (Ultram) 50 mg PO Q4 PRN PRN Reason: pain8-10 Venlafaxine HCl (Effexor Xr) 75 mg PO DAILY [facility] Last Admin: 08/06/18 08:55 Dose: 75 mg - Labs Labs: 08/06/18 04:35 08/06/18 04:35 - Respiratory Exam Respiratory Exam: Clear to Ausculation Bilateral - Cardiovascular Exam Cardiovascular Exam: REGULAR RHYTHM, +S1, +S2 - Additional Findings Additional findings: EXPORT COORDINATOR NSR Assessment and Plan - Assessment and Plan (Free Text) Assessment: RIGHT THR HYPERTENSION Plan: CONDTINUE IV FLUIDS AND LOVENOX
--- NOTE | 2018-08-06 13:15 | CP.PCM.PN ---
<Chantel Watson - Last Filed: 08/06/18 13:20> Subjective - Date & Time of Evaluation Date of Evaluation: 08/06/18 Time of Evaluation: 13:15 - Subjective Subjective: Pt seen and examined sitting up in chair next to bed. No more vomtiing, tolerating PO. Denies CP, SOB, fever and dizziness. Objective - Vital Signs/Intake and Output Vital Signs (last 24 hours): Temp Pulse Resp BP Pulse Ox 98.2 F 97 H 18 114/78 98 08/06/18 08:03 08/06/18 08:03 08/06/18 08:03 08/06/18 08:03 08/06/18 08:03 - Medications Medications: Current Medications Acetaminophen (Tylenol 325mg Tab) 325 mg PO Q4 PRN PRN Reason: pain1-3or fever Last Admin: 08/06/18 13:09 Dose: 325 mg Alprazolam (Xanax) 0.25 mg PO DAILY PRN PRN Reason: Anxiety Last Admin: 08/05/18 22:24 Dose: 0.25 mg Artificial Tears (Artificial Tears) 2 drop OU Q4 PRN PRN Reason: Dry eyes Celecoxib (Celebrex) 100 mg PO Q12 [facility] Last Admin: 08/06/18 08:56 Dose: 100 mg Docusate Sodium (Colace) 100 mg PO TID [facility] Last Admin: 08/06/18 13:10 Dose: 100 mg Enoxaparin Sodium (Lovenox) 40 mg SC DAILY [facility]; Protocol Last Admin: 08/06/18 08:54 Dose: 40 mg Famotidine (Pepcid) 20 mg PO BID [facility] Last Admin: 08/06/18 08:54 Dose: 20 mg Ferrous Sulfate (Feosol) 325 mg PO DAILY [facility] Last Admin: 08/06/18 08:55 Dose: 325 mg HCTZ/Losartan Potassium (Hyzaar 12.5 Mg-50 Mg) 1 tab PO DAILY [facility] Home Med (Ropinirole Hcl [Requip]) 2 mg PO Q12 [facility] Meclizine HCl (Antivert) 12.5 mg PO DAILY [facility] Ondansetron HCl (Zofran Inj) 4 mg IVP Q6 PRN PRN Reason: Nausea/Vomiting Oxycodone HCl (Oxycontin Extended Release Tab) 10 mg PO Q12 [facility] Stop: 08/18/18 21:01 Last Admin: 08/06/18 08:56 Dose: Not Given Oxycodone HCl (Oxycodone Immediate Release Tab) 5 mg PO Q6 PRN PRN Reason: pain4-7 Tramadol HCl (Ultram) 50 mg PO Q4 PRN PRN Reason: pain8-10 Venlafaxine HCl (Effexor Xr) 75 mg PO DAILY [facility] Last Admin: 08/06/18 08:55 Dose: 75 mg - Labs Labs: 08/06/18 04:35 08/06/18 04:35 - Constitutional Appears: Non-toxic, No Acute Distress - Eye Exam Eye Exam: Normal appearance - ENT Exam ENT Exam: Mucous Membranes Moist - Extremities Exam Additional comments: right hip dressing c/d/i - Neurological Exam Neurological Exam: Alert, Awake, Oriented x3 - Psychiatric Exam Psychiatric exam: Anxious - Skin Skin Exam: Normal Color, Warm Assessment and Plan - Assessment and Plan (Free Text) Assessment: 53 yr old F with PMHx hypertension, osteoarthritis bilateral hips, left total hip replacement, anxiety, lap band x 2 admitted for severe pain and abnormal gait secondary to osteoarthritis right hip. Patient is POD #2 s/p right total hip replacement, no complications, EBL 200cc. Antonio Cotto for optimization pending insurance approval. Plan: Right Total Hip Replacement -POD #2 s/p right total hip replacement, no complications, EBL 200cc -Ortho: Dr. Esteban, will follow recommendations -PT/OT -Pending TCU insurance pproval -pain management -f/u CBC, BMP in AM Hypertension -chronic, controlled -continue home medication: HCTZ 12.5 mg/Losartan 50 mg PO QD -monitor BP -heart healthy diet Generalized Anxiety/Moderate Major Depressive Disorder -chronic, controlled -continue home medication: Venlafaxine 75 mg PO QD, Xanax 0.5 mg PO PRN anxiety DVT prophylaxis -Lovenox 40 mg SC QD <Tim Tolliver D - Last Filed: 08/06/18 17:10> Objective - Vital Signs/Intake and Output Vital Signs (last 24 hours): Temp Pulse Resp BP Pulse Ox 99.6 F 120 H 17 114/75 100 08/06/18 15:59 08/06/18 15:59 08/06/18 15:59 08/06/18 15:59 08/06/18 15:59 - Medications Medications: Current Medications Acetaminophen (Tylenol 325mg Tab) 325 mg PO Q4 PRN PRN Reason: pain1-3or fever Last Admin: 08/06/18 13:09 Dose: 325 mg Alprazolam (Xanax) 0.25 mg PO DAILY PRN PRN Reason: Anxiety Last Admin: 08/06/18 16:22 Dose: 0.25 mg Artificial Tears (Artificial Tears) 2 drop OU Q4 PRN PRN Reason: Dry eyes Celecoxib (Celebrex) 100 mg PO Q12 [facility] Last Admin: 08/06/18 08:56 Dose: 100 mg Docusate Sodium (Colace) 100 mg PO TID [facility] Last Admin: 08/06/18 16:20 Dose: 100 mg Enoxaparin Sodium (Lovenox) 40 mg SC DAILY [facility]; Protocol Last Admin: 08/06/18 08:54 Dose: 40 mg Famotidine (Pepcid) 20 mg PO BID [facility] Last Admin: 08/06/18 16:20 Dose: 20 mg Ferrous Sulfate (Feosol) 325 mg PO DAILY [facility] Last Admin: 08/06/18 08:55 Dose: 325 mg HCTZ/Losartan Potassium (Hyzaar 12.5 Mg-50 Mg) 1 tab PO DAILY [facility] Home Med (Ropinirole Hcl [Requip]) 2 mg PO Q12 [facility] Meclizine HCl (Antivert) 12.5 mg PO DAILY [facility] Ondansetron HCl (Zofran Inj) 4 mg IVP Q6 PRN PRN Reason: Nausea/Vomiting Oxycodone HCl (Oxycontin Extended Release Tab) 10 mg PO Q12 [facility] Stop: 08/18/18 21:01 Last Admin: 08/06/18 08:56 Dose: Not Given Oxycodone HCl (Oxycodone Immediate Release Tab) 5 mg PO Q6 PRN PRN Reason: pain4-7 Tramadol HCl (Ultram) 50 mg PO Q4 PRN PRN Reason: pain8-10 Venlafaxine HCl (Effexor Xr) 75 mg PO DAILY [facility] Last Admin: 08/06/18 08:55 Dose: 75 mg - Labs Labs: 08/06/18 04:35 08/06/18 04:35 Attending/Attestation - Attestation I have personally seen and examined this patient.: Yes I have fully participated in the care of the patient.: Yes I have reviewed all pertinent clinical information, including history, physical exam and plan: Yes Notes (Text): 08/06/18 17:09 Patient seen and examined with resident. Case discussed and agreed with assessment and plan.
[2018-08-07 00:07] VITALS: RESP 18
[2018-08-07 05:37] LABS: BASO % 0.4 % (0.0-2.0); EOS # 0.2 K/uL (0.0-0.7); HEMOGLOBIN 9.5 g/dL (12.0-16.0); LYMPH # 1.6 K/uL (1.0-4.3); LYMPH % 31.3 % (20.0-40.0); MEAN CELL VOLUME 89.6 fl (81.0-99.0); MEAN CORPUSCULAR HEMOGLOBIN 29.6 pg (27.0-31.0); MEAN PLATELET VOLUME 9.4 fl (7.2-11.7); MONO # 0.4 K/uL (0.0-0.8); MONO % 8.5 % (0.0-10.0); NEUT % 56.8 % (50.0-75.0); NRBC % 0.1 % (0.0-0.0); RBC 3.21 Mil/uL (3.80-5.20); WHITE BLOOD COUNT 5.2 K/uL (4.8-10.8)
[2018-08-07 06:22] LABS: BLOOD UREA NITROGEN 7 mg/dl (7-17); CALCIUM 7.9 mg/dL (8.4-10.2); GFR NON-AFRICAN AMERICAN > 60
[2018-08-07 08:21] VITALS: BP 128/80; TEMP 97.7; O2SAT 99
[2018-08-07] MEDS: Enoxaparin 40 mg Syringe SC SCH (08:24)
[2018-08-07] MEDS: Venlafaxine 75 mg ER Cap PO SCH (08:25)
[2018-08-07] MEDS: oxyCODONE 10 mg ER Tab (oxyCONTIN) PO SCH (08:25)
--- NOTE | 2018-08-07 08:56 | CP.PCM.PN ---
Subjective - Date & Time of Evaluation Date of Evaluation: 08/07/18 Time of Evaluation: 08:30 - Subjective Subjective: NO CHEST PAIN OR SOB FEELS GOOD Objective - Vital Signs/Intake and Output Vital Signs (last 24 hours): Temp Pulse Resp BP Pulse Ox 97.7 F 91 H 18 128/80 99 08/07/18 08:20 08/07/18 08:20 08/07/18 08:20 08/07/18 08:20 08/07/18 08:20 - Medications Medications: Current Medications Acetaminophen (Tylenol 325mg Tab) 325 mg PO Q4 PRN PRN Reason: pain1-3or fever Last Admin: 08/07/18 07:53 Dose: 325 mg Alprazolam (Xanax) 0.25 mg PO DAILY PRN PRN Reason: Anxiety Last Admin: 08/07/18 07:54 Dose: 0.25 mg Artificial Tears (Artificial Tears) 2 drop OU Q4 PRN PRN Reason: Dry eyes Celecoxib (Celebrex) 100 mg PO Q12 [facility] Last Admin: 08/07/18 08:25 Dose: 100 mg Docusate Sodium (Colace) 100 mg PO TID [facility] Last Admin: 08/07/18 08:25 Dose: 100 mg Enoxaparin Sodium (Lovenox) 40 mg SC DAILY [facility]; Protocol Last Admin: 08/07/18 08:24 Dose: 40 mg Famotidine (Pepcid) 20 mg PO BID [facility] Last Admin: 08/07/18 08:25 Dose: 20 mg Ferrous Sulfate (Feosol) 325 mg PO DAILY [facility] Last Admin: 08/07/18 08:25 Dose: 325 mg HCTZ/Losartan Potassium (Hyzaar 12.5 Mg-50 Mg) 1 tab PO DAILY [facility] Home Med (Ropinirole Hcl [Requip]) 2 mg PO Q12 [facility] Meclizine HCl (Antivert) 12.5 mg PO DAILY [facility] Ondansetron HCl (Zofran Inj) 4 mg IVP Q6 PRN PRN Reason: Nausea/Vomiting Oxycodone HCl (Oxycontin Extended Release Tab) 10 mg PO Q12 [facility] Stop: 08/18/18 21:01 Last Admin: 08/07/18 08:25 Dose: Not Given Oxycodone HCl (Oxycodone Immediate Release Tab) 5 mg PO Q6 PRN PRN Reason: pain4-7 Tramadol HCl (Ultram) 50 mg PO Q4 PRN PRN Reason: pain8-10 Venlafaxine HCl (Effexor Xr) 75 mg PO DAILY [facility] Last Admin: 08/07/18 08:25 Dose: 75 mg - Labs Labs: 08/07/18 04:55 08/07/18 04:55 - Respiratory Exam Respiratory Exam: Clear to Ausculation Bilateral - Cardiovascular Exam Cardiovascular Exam: REGULAR RHYTHM, +S1, +S2 - Extremities Exam Additional comments: NO SIGNIFICANT EDEMA - Additional Findings Additional findings: EKG NSR BP REMAINS GOOD OFF HYZAAR Assessment and Plan - Assessment and Plan (Free Text) Assessment: S/P RIGHT THR HTN Plan: FOR REHAB OK TO DISCHARGE PATIENT FROM [facility]
--- NOTE | 2018-08-07 09:59 | CP.PCM.PN ---
Subjective - Date & Time of Evaluation Date of Evaluation: 08/07/18 Time of Evaluation: 09:57 - Subjective Subjective: Patient states she feels good. Pain is well controlled. Says this side is much easier than the other. Denies CP/SOB/dizzinesss. Objective - Vital Signs/Intake and Output Vital Signs (last 24 hours): Temp Pulse Resp BP Pulse Ox 97.7 F 91 H 18 128/80 99 08/07/18 08:20 08/07/18 08:20 08/07/18 08:20 08/07/18 08:20 08/07/18 08:20 - Medications Medications: Current Medications Acetaminophen (Tylenol 325mg Tab) 325 mg PO Q4 PRN PRN Reason: pain1-3or fever Last Admin: 08/07/18 07:53 Dose: 325 mg Alprazolam (Xanax) 0.25 mg PO DAILY PRN PRN Reason: Anxiety Last Admin: 08/07/18 07:54 Dose: 0.25 mg Artificial Tears (Artificial Tears) 2 drop OU Q4 PRN PRN Reason: Dry eyes Celecoxib (Celebrex) 100 mg PO Q12 [facility] Last Admin: 08/07/18 08:25 Dose: 100 mg Docusate Sodium (Colace) 100 mg PO TID [facility] Last Admin: 08/07/18 08:25 Dose: 100 mg Enoxaparin Sodium (Lovenox) 40 mg SC DAILY [facility]; Protocol Last Admin: 08/07/18 08:24 Dose: 40 mg Famotidine (Pepcid) 20 mg PO BID [facility] Last Admin: 08/07/18 08:25 Dose: 20 mg Ferrous Sulfate (Feosol) 325 mg PO DAILY [facility] Last Admin: 08/07/18 08:25 Dose: 325 mg HCTZ/Losartan Potassium (Hyzaar 12.5 Mg-50 Mg) 1 tab PO DAILY [facility] Home Med (Ropinirole Hcl [Requip]) 2 mg PO Q12 [facility] Meclizine HCl (Antivert) 12.5 mg PO DAILY [facility] Ondansetron HCl (Zofran Inj) 4 mg IVP Q6 PRN PRN Reason: Nausea/Vomiting Oxycodone HCl (Oxycontin Extended Release Tab) 10 mg PO Q12 [facility] Stop: 08/18/18 21:01 Last Admin: 08/07/18 08:25 Dose: Not Given Oxycodone HCl (Oxycodone Immediate Release Tab) 5 mg PO Q6 PRN PRN Reason: pain4-7 Tramadol HCl (Ultram) 50 mg PO Q4 PRN PRN Reason: pain8-10 Venlafaxine HCl (Effexor Xr) 75 mg PO DAILY [facility] Last Admin: 08/07/18 08:25 Dose: 75 mg - Labs Labs: 08/07/18 04:55 08/07/18 04:55 - Extremities Exam Additional comments: Right hip: incision intact, scant serous drainage on dressing, no erythema, thigh soft. +ROM ankle/toes, sensation intact, calves soft NT neg homans Assessment and Plan (1) Primary osteoarthritis of right hip Assessment & Plan: POD#3 s/p right THR ortho stable d/c planning to TCU vs home dressing can remain intact until Friday, patient instructed on dressing change if she is discharged home continue VTE proph f/u Dr. Esteban in 7-10 days call for appt d/w Dr. Esteban, agrees with above Status: Acute
--- NOTE | 2018-08-07 10:14 | CP.PCM.DIS ---
<Chantel Watson - Last Filed: 08/07/18 13:41> Provider - Provider Date of Admission: 08/04/18 16:51 Attending physician: Nikki Beatty DO Consults: 08/04/18 20:34 Cardiology Consult Routine Comment: Consulting Provider: Bridger Simpson Consulting Physician: Bridger Simpson Reason for Consult: cardiology consult Time Spent in preparation of Discharge (in minutes): 20 Diagnosis - Discharge Diagnosis (1) Status post total hip replacement, right Status: Acute Hospital Course - Lab Results Lab Results: Most Recent Lab Values WBC 5.2 K/uL (4.8-10.8) 08/07/18 04:55 RBC 3.21 Mil/uL (3.80-5.20) L 08/07/18 04:55 Hgb 9.5 g/dL (12.0-16.0) L 08/07/18 04:55 Hct 28.8 % (34.0-47.0) L 08/07/18 04:55 MCV 89.6 fl (81.0-99.0) 08/07/18 04:55 MCH 29.6 pg (27.0-31.0) 08/07/18 04:55 MCHC 33.0 g/dL (33.0-37.0) 08/07/18 04:55 RDW 14.0 % (11.5-14.5) 08/07/18 04:55 Plt Count 175 K/uL (130-400) 08/07/18 04:55 MPV 9.4 fl (7.2-11.7) 08/07/18 04:55 Neut % (Auto) 56.8 % (50.0-75.0) 08/07/18 04:55 Lymph % (Auto) 31.3 % (20.0-40.0) 08/07/18 04:55 [place] % (Auto) 8.5 % (0.0-10.0) 08/07/18 04:55 Eos % (Auto) 3.0 % (0.0-4.0) 08/07/18 04:55 Baso % (Auto) 0.4 % (0.0-2.0) 08/07/18 04:55 Neut # (Auto) 3.0 K/uL (1.8-7.0) 08/07/18 04:55 Lymph # (Auto) 1.6 K/uL (1.0-4.3) 08/07/18 04:55 [place] # (Auto) 0.4 K/uL (0.0-0.8) 08/07/18 04:55 Eos # (Auto) 0.2 K/uL (0.0-0.7) 08/07/18 04:55 Baso # (Auto) 0.0 K/uL (0.0-0.2) 08/07/18 04:55 Sodium 135 mmol/l (132-148) 08/07/18 04:55 Potassium 3.6 MMOL/L (3.6-5.0) 08/07/18 04:55 Chloride 102 mmol/L (98-107) 08/07/18 04:55 Carbon Dioxide 26 mmol/L (22-30) 08/07/18 04:55 Anion Gap 11 (10-20) 08/07/18 04:55 BUN 7 mg/dl (7-17) 08/07/18 04:55 Creatinine 0.5 mg/dl (0.7-1.2) L 08/07/18 04:55 Est GFR ( Amer) > 60 08/07/18 04:55 Est GFR (Non-Af Amer) > 60 08/07/18 04:55 Random Glucose 112 mg/dL (65-105) H 08/07/18 04:55 Calcium 7.9 mg/dL (8.4-10.2) L 08/07/18 04:55 Total Bilirubin 0.6 mg/dl (0.2-1.3) 08/06/18 04:35 AST 33 U/L (14-36) 08/06/18 04:35 ALT 30 U/L (9-52) 08/06/18 04:35 Alkaline Phosphatase 77 U/L (38-126) 08/06/18 04:35 CK-MB (Mass) 4.14 ng/mL (0.0-3.38) H 08/04/18 19:01 Troponin I < 0.0120 ng/mL (0.00-0.120) 08/05/18 07:50 Total Protein 5.8 G/DL (6.3-8.2) L 08/06/18 04:35 Albumin 3.1 g/dL (3.5-5.0) L D 08/06/18 04:35 Globulin 2.7 gm/dL (2.2-3.9) 08/06/18 04:35 Albumin/Globulin Ratio 1.1 (1.0-2.1) 08/06/18 04:35 Blood Type A POSITIVE 08/04/18 09:35 Antibody Screen Negative 08/04/18 09:35 Crossmatch See Detail 08/04/18 09:35 BBK History Checked Patient has bt 08/04/18 09:35 - Hospital Course Hospital Course: 53-yr-old F with PMHx hypertension, osteoarthritis bilateral hips, left total hip replacement, anxiety, lap band x 2 admitted for severe pain and abnormal gait secondary to osteoarthritis right hip. Patient is POD #3 s/p right total hip replacement, no complications, EBL 200cc. Ortho, Dr. Esteban, cleared patient for discharge. Medically cleared for discharge to TCU for optimization. Recommend resume all home medications. Discharge Exam - Head Exam Head Exam: NORMAL INSPECTION - Eye Exam Eye Exam: Normal appearance - ENT Exam ENT Exam: Mucous Membranes Moist - Respiratory Exam Respiratory Exam: NORMAL BREATHING PATTERN. absent: Respiratory Distress - Cardiovascular Exam Cardiovascular Exam: REGULAR RHYTHM - GI/Abdominal Exam GI & Abdominal Exam: Soft. absent: Tenderness - Neurological Exam Neurological exam: Alert, Oriented x3 - Psychiatric Exam Psychiatric exam: Normal Affect, Normal Mood - Skin Skin Exam: Normal Color, Warm Discharge Plan - Follow Up Plan Condition: GOOD Disposition: REHAB FACILITY/REHAB UNIT Instructions: Total Hip Replacement (DC) Referrals: María Esteban MD [Family Provider] - <Nikki Beatty - Last Filed: 08/07/18 19:21> Provider - Provider Date of Admission: 08/04/18 16:51 Attending physician: Nikki Beatty DO Consults: 08/04/18 20:34 Cardiology Consult Routine Comment: Consulting Provider: Bridger Simpson Consulting Physician: Bridger Simpson Reason for Consult: cardiology consult Hospital Course - Lab Results Lab Results: Most Recent Lab Values WBC 5.2 K/uL (4.8-10.8) 08/07/18 04:55 RBC 3.21 Mil/uL (3.80-5.20) L 08/07/18 04:55 Hgb 9.5 g/dL (12.0-16.0) L 08/07/18 04:55 Hct 28.8 % (34.0-47.0) L 08/07/18 04:55 MCV 89.6 fl (81.0-99.0) 08/07/18 04:55 MCH 29.6 pg (27.0-31.0) 08/07/18 04:55 MCHC 33.0 g/dL (33.0-37.0) 08/07/18 04:55 RDW 14.0 % (11.5-14.5) 08/07/18 04:55 Plt Count 175 K/uL (130-400) 08/07/18 04:55 MPV 9.4 fl (7.2-11.7) 08/07/18 04:55 Neut % (Auto) 56.8 % (50.0-75.0) 08/07/18 04:55 Lymph % (Auto) 31.3 % (20.0-40.0) 08/07/18 04:55 [place] % (Auto) 8.5 % (0.0-10.0) 08/07/18 04:55 Eos % (Auto) 3.0 % (0.0-4.0) 08/07/18 04:55 Baso % (Auto) 0.4 % (0.0-2.0) 08/07/18 04:55 Neut # (Auto) 3.0 K/uL (1.8-7.0) 08/07/18 04:55 Lymph # (Auto) 1.6 K/uL (1.0-4.3) 08/07/18 04:55 [place] # (Auto) 0.4 K/uL (0.0-0.8) 08/07/18 04:55 Eos # (Auto) 0.2 K/uL (0.0-0.7) 08/07/18 04:55 Baso # (Auto) 0.0 K/uL (0.0-0.2) 08/07/18 04:55 Sodium 135 mmol/l (132-148) 08/07/18 04:55 Potassium 3.6 MMOL/L (3.6-5.0) 08/07/18 04:55 Chloride 102 mmol/L (98-107) 08/07/18 04:55 Carbon Dioxide 26 mmol/L (22-30) 08/07/18 04:55 Anion Gap 11 (10-20) 08/07/18 04:55 BUN 7 mg/dl (7-17) 08/07/18 04:55 Creatinine 0.5 mg/dl (0.7-1.2) L 08/07/18 04:55 Est GFR ( Amer) > 60 08/07/18 04:55 Est GFR (Non-Af Amer) > 60 08/07/18 04:55 POC Glucose (mg/dL) 92 mg/dL (65-110) 08/07/18 17:53 Random Glucose 112 mg/dL (65-105) H 08/07/18 04:55 Calcium 7.9 mg/dL (8.4-10.2) L 08/07/18 04:55 Total Bilirubin 0.6 mg/dl (0.2-1.3) 08/06/18 04:35 AST 33 U/L (14-36) 08/06/18 04:35 ALT 30 U/L (9-52) 08/06/18 04:35 Alkaline Phosphatase 77 U/L (38-126) 08/06/18 04:35 CK-MB (Mass) 4.14 ng/mL (0.0-3.38) H 08/04/18 19:01 Troponin I < 0.0120 ng/mL (0.00-0.120) 08/05/18 07:50 Total Protein 5.8 G/DL (6.3-8.2) L 08/06/18 04:35 Albumin 3.1 g/dL (3.5-5.0) L D 08/06/18 04:35 Globulin 2.7 gm/dL (2.2-3.9) 08/06/18 04:35 Albumin/Globulin Ratio 1.1 (1.0-2.1) 08/06/18 04:35 Blood Type A POSITIVE 08/04/18 09:35 Antibody Screen Negative 08/04/18 09:35 Crossmatch See Detail 08/04/18 09:35 BBK History Checked Patient has bt 08/04/18 09:35 Attending/Attestation - Attestation I have personally seen and examined this patient.: Yes I have fully participated in the care of the patient.: Yes I have reviewed all pertinent clinical information, including history, physical exam and plan: Yes Notes (Text): Agree with findings and plan as above.
[2018-08-07] MEDS ORDERED: Ergocalciferol 50,000 Intl Units Cap PO SCH (10:15)
[2018-08-07 10:58] VITALS: PULSE 103
== END 2018-08-07 10:45 | DRG 470 ==
LOC: H.OPSURG 08:35 → H.TEL 16:51
PROVIDERS: ADMIT Student in an Organized Health Care Education/Training Program; ATTEND Student in an Organized Health Care Education/Training Program
PROC: 0SR904Z Replacement of Right Hip Joint with Ceramic on Polyethylene Synthetic Substitute, Open Approach (ICD-10-PCS; principal; 2018-08-04 14:55)
DX: M16.11 Unilateral primary osteoarthritis, right hip (principal); Z68.42 Body mass index [BMI] 45.0-49.9, adult; E66.01 Morbid (severe) obesity due to excess calories; I95.81 Postprocedural hypotension; I10 Essential (primary) hypertension; F41.0 Panic disorder [episodic paroxysmal anxiety]; F41.1 Generalized anxiety disorder; Z96.642 Presence of left artificial hip joint; Z87.891 Personal history of nicotine dependence; Z98.84 Bariatric surgery status

== ENCOUNTER 2018-08-07 11:13 | Inpatient (IN) | payer OTHER ==
[2018-08-07 11:17] VITALS: BMI 47.8
[2018-08-07] MEDS ORDERED: Tuberculin 5 Units/0.1 ml Inj ID ONE (11:33)
[2018-08-07] MEDS ORDERED: Aspirin 325 mg EC Tablets PO SCH (17:00)
[2018-08-07] MEDS ORDERED: ROPINIROLE HCL 2 MG PO SCH (21:00)
[2018-08-08] MEDS ORDERED: Oxycodone/Acetaminophen 5/325 mg Tab PO PRN ×2 (00:10→00:11)
[2018-08-08] MEDS ORDERED: HCTZ/Losartan 12.5/50 Tab PO SCH (09:00)
[2018-08-08] MEDS: Enoxaparin 40 mg Syringe SC SCH (09:19)
[2018-08-08] MEDS: Venlafaxine 75 mg ER Cap PO SCH (09:21)
--- NOTE | 2018-08-08 09:55 | CP.PCM.HP ---
<Margaret Bah - Last Filed: 08/08/18 14:14> History of Present Illness - History of Present Illness History of Present Illness: 53 yr old F with PMHx hypertension, osteoarthritis bilateral hips with abnormal gait , left total hip replacement, anxiety, lap band x 2 . Patient admitted to TCU for continued PT/OT after discharge from med/surg s/p right total hip replacement. Patient is POD #4 s/p right total hip replacement, no complications, EBL 200cc. Denies chest pain, SOB or dizziness. Patient is medically stable for continued PT/OT in TCU. Present on Admission - Present on Admission Any Indicators Present on Admission: No History of DVT/PE: No History of Uncontrolled Diabetes: No Urinary Catheter: No Decubitus Ulcer Present: No History Surgical Site Infection Following: None Review of Systems - Constitutional Constitutional: absent: Chills - EENT Eyes: absent: Change in Vision Ears: absent: Dizziness Nose/Mouth/Throat: absent: Sore Throat - Breasts Breasts: absent: Skin Changes - Cardiovascular Cardiovascular: absent: Chest Pain, Dyspnea - Respiratory Respiratory: absent: Cough - Gastrointestinal Gastrointestinal: absent: Nausea, Vomiting - Genitourinary Genitourinary: absent: Difficulty Urinating, Dysuria - Musculoskeletal Musculoskeletal: absent: Numbness, Tingling - Integumentary Integumentary: absent: Bleeding Lesions - Neurological Neurological: absent: Weakness - Psychiatric Psychiatric: Anxiety (controlled ) - Endocrine Endocrine: absent: Palpitations, Polyphagia, Polyuria - Hematologic/Lymphatic Hematologic: absent: Easy Bleeding, Easy Bruising Past Patient History - Past Medical History & Family History Past Medical History?: Yes - Past Social History Smoking Status: Never Smoked - CARDIAC Hx Hypertension: Yes - PULMONARY Hx Respiratory Disorders: No - NEUROLOGICAL Hx Neurological Disorder: No Other/Comment: Restless leg syndrome - HEENT Hx HEENT Problems: No - RENAL Hx Chronic Kidney Disease: No - ENDOCRINE/METABOLIC Hx Diabetes Mellitus Type 2: Yes - HEMATOLOGICAL/ONCOLOGICAL Hx Blood Disorders: No - INTEGUMENTARY Hx Dermatological Problems: No - MUSCULOSKELETAL/RHEUMATOLOGICAL Hx Arthritis: Yes - GASTROINTESTINAL Hx Gastrointestinal Disorders: No - GENITOURINARY/GYNECOLOGICAL Hx Genitourinary Disorders: No - PSYCHIATRIC Hx Psychophysiologic Disorder: Yes Hx Anxiety: Yes Hx Depression: Yes Hx Emotional Abuse: No Hx Physical Abuse: No Hx Substance Use: No - SURGICAL HISTORY Hx Surgeries: Yes Hx Gastric Bypass Surgery: Yes (LAP BAND-IN AND OUT-5 YEARS AGO) Hx Joint Replacement: Yes (LEFT HIP TOTAL REPLACEMENT-2018) Other/Comment: Hx lap banding x2 - ANESTHESIA Hx Anesthesia: Yes Hx Anesthesia Reactions: No Hx Malignant Hyperthermia: No Meds Allergies/Adverse Reactions: Allergies Allergy/AdvReac Type Severity Reaction Status Date / Time No Known Allergies Allergy Verified 11/02/17 01:01 Physical Exam - Constitutional Appears: No Acute Distress - Head Exam Head Exam: NORMAL INSPECTION - Eye Exam Eye Exam: EOMI - ENT Exam ENT Exam: Mucous Membranes Moist - Neck Exam Neck exam: Positive for: Full Rom. Negative for: Lymphadenopathy - Respiratory Exam Respiratory Exam: NORMAL BREATHING PATTERN. absent: Rales, Rhonchi - Cardiovascular Exam Cardiovascular Exam: REGULAR RHYTHM, +S1, +S2 - GI/Abdominal Exam GI & Abdominal Exam: Normal Bowel Sounds, Soft - Extremities Exam Extremities exam: Positive for: full ROM. Negative for: calf tenderness, pedal edema Additional comments: right proximal femur dressing clean/dry/intact - Back Exam Back exam: absent: CVA tenderness (L), CVA tenderness (R) - Neurological Exam Neurological exam: Alert, CN II-XII Intact, Oriented x3 - Psychiatric Exam Psychiatric exam: Normal Affect, Normal Mood - Skin Skin Exam: Dry, Normal Color, Warm Additional comments: right proximal femur dressing clean/dry/intact Results - Vital Signs Recent Vital Signs: Last Vital Signs Temp 98.0 F 08/08/18 07:57 Pulse 94 H 08/08/18 07:57 Resp 20 08/08/18 07:57 BP 150/88 08/08/18 07:57 Pulse Ox 97 08/08/18 07:57 Assessment & Plan - Assessment and Plan (Free Text) Assessment: 53 yr old F with PMHx hypertension, osteoarthritis bilateral hips, left total hip replacement, anxiety, lap band x 2 admitted continue PT/OT secondary to osteoarthritis right hip. Patient is POD #4 s/p right total hip replacement, no complications, EBL 200cc. Right Total Hip Replacement -POD #4 s/p right total hip replacement, no complications, EBL 200cc -admit to TCU -Ortho: Dr. Esteban, will follow recommendations -PT/OT -pain management Hypertension -chronic, controlled -continue home medication: HCTZ 12.5 mg/Losartan 50 mg PO QD for systolic BP >140 (per patient PMD asked her to not take if BP decreases) -monitor BP -heart healthy diet Generalized Anxiety/Moderate Major Depressive Disorder -chronic, controlled -continue home medication: Venlafaxine 75 mg PO QD, Xanax 0.5 mg PO PRN anxiety DVT prophylaxis -Lovenox 40 mg SC QD - Date & Time Date: 08/08/18 Time: 09:00 <Tim Tolliver D - Last Filed: 08/08/18 19:14> Results - Vital Signs Recent Vital Signs: Last Vital Signs Temp 98.3 F 08/08/18 15:47 Pulse 77 08/08/18 15:47 Resp 20 08/08/18 15:47 BP 117/77 08/08/18 15:47 Pulse Ox 98 08/08/18 15:47 Attending/Attestation - Attestation I have personally seen and examined this patient.: Yes I have fully participated in the care of the patient.: Yes I have reviewed all pertinent clinical information: Yes Notes (Text): 08/08/18 19:13 Patient seen and examined with resident. Case discussed and agreed with assessment and plan of management
[2018-08-09] MEDS: Enoxaparin 40 mg Syringe SC SCH (08:38)
[2018-08-09] MEDS: HCTZ/Losartan 12.5/50 Tab PO SCH ×2 (08:39→09:00)
[2018-08-09] MEDS: Venlafaxine 75 mg ER Cap PO SCH (08:39)
--- NOTE | 2018-08-09 12:18 | CP.PCM.CON ---
History of Present Illness - History of Present Illness History of Present Illness: THE PATIENT IS A 53 YEAR OLD FEMALE WHO HAS OA AND UNDERWENT A RIGHT HIP REPLACEMENT 5 DAYS AGO AND WAS DISCHARGED TO TCU FOR MORENITA ON 08/07/18. I WAS ASKED TO FOLLOW HER. SHE ALSO HAS A HISTORY OF HYPERTENSION, A LEFT HIP REPLACEMENT ONE YEAR AGO, ANXIETY AND SHE IS OVERWEIGHT. SHE DID WELL WITH SURGERY WITH MINIMAL POST-OP PAIN AND IS DOING WELL WITH REHAB. Past Patient History - Past Medical History & Family History Past Medical History?: Yes - Past Social History Smoking Status: Never Smoked - CARDIAC Hx Hypertension: Yes - PULMONARY Hx Respiratory Disorders: No - NEUROLOGICAL Hx Neurological Disorder: No Other/Comment: Restless leg syndrome - HEENT Hx HEENT Problems: No - RENAL Hx Chronic Kidney Disease: No - ENDOCRINE/METABOLIC Hx Diabetes Mellitus Type 2: Yes - HEMATOLOGICAL/ONCOLOGICAL Hx Blood Disorders: No - INTEGUMENTARY Hx Dermatological Problems: No - MUSCULOSKELETAL/RHEUMATOLOGICAL Hx Arthritis: Yes - GASTROINTESTINAL Hx Gastrointestinal Disorders: No - GENITOURINARY/GYNECOLOGICAL Hx Genitourinary Disorders: No - PSYCHIATRIC Hx Psychophysiologic Disorder: Yes Hx Anxiety: Yes Hx Depression: Yes Hx Emotional Abuse: No Hx Physical Abuse: No Hx Substance Use: No - SURGICAL HISTORY Hx Surgeries: Yes Hx Gastric Bypass Surgery: Yes (LAP BAND-IN AND OUT-5 YEARS AGO) Hx Joint Replacement: Yes (LEFT HIP TOTAL REPLACEMENT-2018) Other/Comment: Hx lap banding x2 - ANESTHESIA Hx Anesthesia: Yes Hx Anesthesia Reactions: No Hx Malignant Hyperthermia: No Meds Allergies/Adverse Reactions: Allergies Allergy/AdvReac Type Severity Reaction Status Date / Time No Known Allergies Allergy Verified 11/02/17 01:01 - Medications Medications: Current Medications Acetaminophen (Tylenol 325mg Tab) 325 mg PO Q4 PRN PRN Reason: Pain, Mild (1-3) Last Admin: 08/09/18 05:03 Dose: 325 mg Alprazolam (Xanax) 0.25 mg PO HS PRN PRN Reason: Anxiety Last Admin: 08/07/18 21:13 Dose: 0.25 mg Alprazolam (Xanax) 0.25 mg PO DAILY PRN PRN Reason: Anxiety Celecoxib (Celebrex) 100 mg PO Q12 [facility] Last Admin: 08/09/18 08:39 Dose: 100 mg Docusate Sodium (Colace) 100 mg PO TID [facility] Last Admin: 08/09/18 08:39 Dose: 100 mg Enoxaparin Sodium (Lovenox) 40 mg SC DAILY [facility]; Protocol Last Admin: 08/09/18 08:38 Dose: 40 mg Famotidine (Pepcid) 20 mg PO BID [facility] Last Admin: 08/09/18 08:39 Dose: 20 mg Ferrous Sulfate (Feosol) 325 mg PO DAILY [facility] Last Admin: 08/09/18 08:42 Dose: 325 mg HCTZ/Losartan Potassium (Hyzaar 12.5 Mg-50 Mg) 1 tab PO DAILY [facility] Last Admin: 08/09/18 08:39 Dose: 1 tab Home Med (Ropinirole Hcl [Requip]) 4 mg PO 2000 [facility] Last Admin: 08/08/18 21:14 Dose: Not Given Oxycodone/Acetaminophen (Percocet 5/325 Mg Tab) 2 tab PO Q4 PRN PRN Reason: Pain, severe (8-10) Stop: 08/11/18 00:11 Oxycodone/Acetaminophen (Percocet 5/325 Mg Tab) 1 tab PO Q4 PRN PRN Reason: Pain, moderate (4-7) Stop: 08/11/18 00:12 Venlafaxine HCl (Effexor Xr) 75 mg PO DAILY [facility] Last Admin: 08/09/18 08:39 Dose: 75 mg Physical Exam - Respiratory Exam Respiratory Exam: Clear to Auscultation Bilateral - Cardiovascular Exam Cardiovascular Exam: REGULAR RHYTHM, +S1, +S2 - Extremities Exam Additional comments: MILD BILAT LE EDEMA(CHRONIC) - Additional Findings Additional findings: BP 125/70 MANUALLY BY ME Results - Vital Signs Recent Vital Signs: Last Vital Signs Temp 97.8 F 08/09/18 08:11 Pulse 91 H 08/09/18 08:11 Resp 20 08/09/18 08:11 BP 132/83 08/09/18 08:11 Pulse Ox 96 08/09/18 08:11 Assessment & Plan - Assessment and Plan (Free Text) Assessment: SEVERE LEFT HIP OA WITH LEFT HIP REPLACEMENT 5 DAYS AGO HYPERTENSION ANXIETY OVERWEIGHT Plan: CONTINUE LOVENOX, EFFEXOR AND ALPRAZOLAM LOSARTAN/HCTZ ON HOLD FOR NOW BP IS GOOD OFF OF IT
--- NOTE | 2018-08-10 08:52 | CP.PCM.PN ---
Subjective - Date & Time of Evaluation Date of Evaluation: 08/10/18 Time of Evaluation: 08:00 - Subjective Subjective: NO COMPLAINTS Objective - Vital Signs/Intake and Output Vital Signs (last 24 hours): Temp Pulse Resp BP Pulse Ox 98.1 F 94 H 20 121/80 99 08/09/18 20:23 08/09/18 20:23 08/09/18 20:23 08/09/18 20:23 08/09/18 20:23 - Medications Medications: Current Medications Acetaminophen (Tylenol 325mg Tab) 325 mg PO Q4 PRN PRN Reason: Pain, Mild (1-3) Last Admin: 08/10/18 01:25 Dose: 325 mg Alprazolam (Xanax) 0.25 mg PO HS PRN PRN Reason: Anxiety Last Admin: 08/07/18 21:13 Dose: 0.25 mg Alprazolam (Xanax) 0.25 mg PO DAILY PRN PRN Reason: Anxiety Celecoxib (Celebrex) 100 mg PO Q12 [facility] Last Admin: 08/09/18 21:21 Dose: 100 mg Docusate Sodium (Colace) 100 mg PO TID [facility] Last Admin: 08/09/18 16:15 Dose: 100 mg Enoxaparin Sodium (Lovenox) 40 mg SC DAILY [facility]; Protocol Last Admin: 08/09/18 08:38 Dose: 40 mg Famotidine (Pepcid) 20 mg PO BID [facility] Last Admin: 08/09/18 16:16 Dose: 20 mg Ferrous Sulfate (Feosol) 325 mg PO DAILY [facility] Last Admin: 08/09/18 08:42 Dose: 325 mg HCTZ/Losartan Potassium (Hyzaar 12.5 Mg-50 Mg) 1 tab PO DAILY [facility] Last Admin: 08/09/18 09:00 Dose: Not Given Home Med (Ropinirole Hcl [Requip]) 4 mg PO 2000 [facility] Last Admin: 08/09/18 21:20 Dose: Not Given Oxycodone/Acetaminophen (Percocet 5/325 Mg Tab) 2 tab PO Q4 PRN PRN Reason: Pain, severe (8-10) Stop: 08/11/18 00:11 Oxycodone/Acetaminophen (Percocet 5/325 Mg Tab) 1 tab PO Q4 PRN PRN Reason: Pain, moderate (4-7) Stop: 08/11/18 00:12 Venlafaxine HCl (Effexor Xr) 75 mg PO DAILY [facility] Last Admin: 08/09/18 08:39 Dose: 75 mg - Respiratory Exam Respiratory Exam: Clear to Ausculation Bilateral - Cardiovascular Exam Cardiovascular Exam: REGULAR RHYTHM, +S1, +S2 - Extremities Exam Additional comments: MILD BILAT LE EDEMA Assessment and Plan - Assessment and Plan (Free Text) Assessment: S/P RIGHT THR HYPERTENSION Plan: CONTINUE EFFEXOR, LOVENOX, ALPRAZOLAM CONTINUE MORENITA
[2018-08-10] MEDS: HCTZ/Losartan 12.5/50 Tab PO SCH ×2 (09:47)
[2018-08-10] MEDS: Enoxaparin 40 mg Syringe SC SCH (09:48)
[2018-08-10] MEDS: Venlafaxine 75 mg ER Cap PO SCH (09:48)
--- NOTE | 2018-08-10 14:16 | CP.PCM.PN ---
Subjective - Date & Time of Evaluation Date of Evaluation: 08/10/18 Time of Evaluation: 11:00 - Subjective Subjective: Patient seen and examined at bedside comfortable. Pain is well controlled. Tolerating PT, ambulating with cane without issues. Ready to be d/c to home today. No other complaints. Objective - Vital Signs/Intake and Output Vital Signs (last 24 hours): Temp Pulse Resp BP Pulse Ox 98.2 F 102 H 16 133/84 98 08/10/18 09:45 08/10/18 09:45 08/10/18 09:45 08/10/18 09:45 08/10/18 09:45 - Medications Medications: Current Medications Acetaminophen (Tylenol 325mg Tab) 325 mg PO Q4 PRN PRN Reason: Pain, Mild (1-3) Last Admin: 08/10/18 01:25 Dose: 325 mg Alprazolam (Xanax) 0.25 mg PO HS PRN PRN Reason: Anxiety Last Admin: 08/07/18 21:13 Dose: 0.25 mg Alprazolam (Xanax) 0.25 mg PO DAILY PRN PRN Reason: Anxiety Celecoxib (Celebrex) 100 mg PO Q12 [facility] Last Admin: 08/10/18 09:46 Dose: 100 mg Docusate Sodium (Colace) 100 mg PO TID [facility] Last Admin: 08/10/18 09:48 Dose: 100 mg Enoxaparin Sodium (Lovenox) 40 mg SC DAILY [facility]; Protocol Last Admin: 08/10/18 09:48 Dose: 40 mg Famotidine (Pepcid) 20 mg PO BID [facility] Last Admin: 08/10/18 09:47 Dose: 20 mg Ferrous Sulfate (Feosol) 325 mg PO DAILY [facility] Last Admin: 08/10/18 09:51 Dose: 325 mg HCTZ/Losartan Potassium (Hyzaar 12.5 Mg-50 Mg) 1 tab PO DAILY [facility] Last Admin: 08/10/18 09:47 Dose: Not Given Home Med (Ropinirole Hcl [Requip]) 4 mg PO 2000 [facility] Last Admin: 08/09/18 21:20 Dose: Not Given Oxycodone/Acetaminophen (Percocet 5/325 Mg Tab) 2 tab PO Q4 PRN PRN Reason: Pain, severe (8-10) Stop: 08/11/18 00:11 Oxycodone/Acetaminophen (Percocet 5/325 Mg Tab) 1 tab PO Q4 PRN PRN Reason: Pain, moderate (4-7) Stop: 08/11/18 00:12 Venlafaxine HCl (Effexor Xr) 75 mg PO DAILY [facility] Last Admin: 08/10/18 09:48 Dose: 75 mg - Extremities Exam Additional comments: RLE: RICHARD dressing intact calves soft NT b/l sensation intact SP/DP/TN motor intact EHL/FHL/TA/G pedal pulse intact Assessment and Plan (1) Status post total hip replacement, right Assessment & Plan: POD#6 s/p R ROSE MARIE -RICHARD dressing intact, removed, dry dressings applied -PT/OT -posterior hip precautions -abd pillow -orthopedically stable for discharge to home -f/u in office in 2 weeks -d/w Dr. Esteban who agrees with above Status: Acute
--- NOTE | 2018-08-10 16:23 | CP.PCM.DIS ---
Provider - Provider Date of Admission: 08/07/18 11:27 Attending physician: Nikki Beatty DO Consults: 08/07/18 13:27 Cardiology Consult Routine Comment: Consulting Provider: Bridger Simpson Consulting Physician: Bridger Simpson Reason for Consult: cardiology consult Time Spent in preparation of Discharge (in minutes): 25 Diagnosis - Discharge Diagnosis (1) Status post total hip replacement, right Status: Acute Comment: continue PT/OT as outpatient (2) Hypertension Status: Chronic Comment: BP controlled. continue Hyzaar daily Hospital Course - Hospital Course Hospital Course: 53 yo female with history of HTN, OA and previous left THR had right THR on 08/04/2018. She was transferred to TCU on 08/08/2018 for continuation of PT/OT. Patient did well and now is ready for discharge. Discharge Exam - Head Exam Head Exam: NORMAL INSPECTION - Eye Exam Eye Exam: absent: Scleral icterus - ENT Exam ENT Exam: Mucous Membranes Moist - Respiratory Exam Respiratory Exam: absent: Rales, Wheezes, Respiratory Distress - Cardiovascular Exam Cardiovascular Exam: REGULAR RHYTHM, +S1, +S2 - GI/Abdominal Exam GI & Abdominal Exam: Soft. absent: Tenderness - Rectal Exam Rectal Exam: Deferred - Neurological Exam Neurological exam: Alert, Oriented x3 - Psychiatric Exam Psychiatric exam: Normal Affect - Skin Skin Exam: Dry, Intact Discharge Plan - Discharge Medications Prescriptions: oxyCODONE/Acetaminophen [Percocet 5/325 mg Tab] 1 tab PO Q4 PRN #20 tab PRN Reason: Pain, Moderate (4-7) - Follow Up Plan Condition: GOOD Disposition: HOME/ ROUTINE
[2018-08-10 18:24] VITALS: BP 120/81; PULSE 98; RESP 19; TEMP 97.7; O2SAT 100
== END 2018-08-10 19:30 | disposition home or self-care (01) | DRG 560 ==
LOC: H.TCU 11:27
PROVIDERS: ADMIT Student in an Organized Health Care Education/Training Program; ATTEND Student in an Organized Health Care Education/Training Program
PROC: F07Z8YZ Transfer Training Treatment using Other Equipment (ICD-10-PCS; principal; 2018-08-07)
PROC: F07Z9FZ Gait Training/Functional Ambulation Treatment using Assistive, Adaptive, Supportive or Protective Equipment (ICD-10-PCS; 2018-08-07)
PROC: F07L7ZZ Manual Therapy Techniques Treatment of Musculoskeletal System - Lower Back / Lower Extremity (ICD-10-PCS; 2018-08-07)
PROC: F07L6GZ Therapeutic Exercise Treatment of Musculoskeletal System - Lower Back / Lower Extremity using Aerobic Endurance and Conditioning Equipment (ICD-10-PCS; 2018-08-07)
PROC: F07K6FZ Therapeutic Exercise Treatment of Musculoskeletal System - Upper Back / Upper Extremity using Assistive, Adaptive, Supportive or Protective Equipment (ICD-10-PCS; 2018-08-07)
PROC: F08Z1ZZ Dressing Techniques Treatment (ICD-10-PCS; 2018-08-07)
DX: Z47.1 Aftercare following joint replacement surgery (principal); F32.1 Major depressive disorder, single episode, moderate; Z68.42 Body mass index [BMI] 45.0-49.9, adult; Z96.643 Presence of artificial hip joint, bilateral; F41.1 Generalized anxiety disorder; G25.81 Restless legs syndrome; I10 Essential (primary) hypertension; Z98.84 Bariatric surgery status; E66.3 Overweight